=== PATIENT | male | born 1955 | race Caucasian/White ===

== ENCOUNTER 2020-10-12 14:31 | Observation (INO) ==
--- NOTE | 2020-10-12 15:05 | Emergency Department Note ---
History of Present Illness General Chief complaint: Chest Pain Stated complaint: chest pain, pulmonary hypotension Time Seen by Provider: 10/12/20 14:38 Source: patient Limitations: no limitations History of Present Illness Provider complaint: Chest discomfort Onset (ago): day(s) 2 Location: chest Radiation: non-radiation Severity: moderate Pain Consistency: + now resolved Maximum Pain Intensity: 6 Quality: + other (Pressure) Relieved By: + none Exacerbated By: + other (Exertion) Associated symptoms: + cough, + fever/chills (Chills no fever), + nausea/vomiting (Nausea no vomiting), + shortness of breath and + other (Fatigue) This is a 65-year-old male with a history of PE and pulmonary hypertension presenting with chest discomfort starting 2 days ago. The patient states that he had a cardiac catheterization years ago and was told that it was normal. He did develop clots in his lungs this spring after he was wearing knee brace that was too tight on him due to knee pain. He was on Eliquis but this was stopped about a month ago. He states that he has been having on and off chest pain since this past summer. He describes it as a pressure across the top of his chest. It is associated with shortness of breath. He states that he has seen his doctor for this who did not feel that this was cardiac in nature. He tended to get this chest discomfort after working [place]. He states he did not get it while he was exerting himself but the day after and his doctor felt that it was musculoskeletal. Several days ago when it was snowing very hard he shoveled a lot of snow. He states while he was shoveling he had no chest discomfort. It was only a day later when he started having pressure across his upper chest with some shortness of breath and nausea. He stated that it felt similar to the epic there are episodes of chest discomfort he has had since summer. The following day, however, the patient continued to have intermittent chest discomfort and stated that walking across 2 rooms would make him short of breath similar to when he had his pulmonary emboli. He denies any immobilization or leg swelling or pain. He does state that this morning he developed a cough with sputum production and has had increased fatigue and chills without fever. He denies any loss of taste or smell or diarrhea. He has no abdominal pain or vomiting. He denies any known exposure to COVID-19. He and his have been isolated on their property except to go to grocery stores and he states he wears a mask whenever he goes out. Home Medications Medication Instructions Recorded Confirmed Type lisinopril 10 mg PO DAILY 01/13/20 10/12/20 History pantoprazole 40 mg PO DAILY 01/13/20 10/12/20 History hydrochlorothiazide 25 mg PO Q3D 10/12/20 10/12/20 History meloxicam 15 mg PO DAILY PRN 10/12/20 10/12/20 History Allergies Allergy/AdvReac Type Severity Reaction Status Date / Time naproxen Allergy Severe Anaphylaxis Verified 10/12/20 19:23 Past Med/Surg History Medical History Barretts esophagus Bilateral pulmonary embolism completed 6 months Eliquis therapy Dyslipidemia History of DVT (deep vein thrombosis) HTN (hypertension) Left anterior fascicular block Pulmonary HTN RBBB Surgical History H/O inguinal hernia repair History of cardiac cath 08/2017 - normal coronaries Family History Mother COPD (chronic obstructive pulmonary disease) Social History Smoking Status: Former smoker Tobacco Type: Cigarettes Second Hand Exposure: No; Hx Alcohol Use: Yes Alcohol type: beer Alcohol Intake Frequency Comment: 2 beers/day Hx Substance Use: No Preferred Language: Yoruba [employer]ile [employer]ter Supervisor Required: No Beliefs That Will Affect Care: None Current Living Situation: Spouse Feels Safe at Home: Yes Assistive Devices: None Review of Systems See HPI for pertinent positives & negatives. and A total of 10 systems reviewed and were otherwise negative Physical Exam Vital Signs Vital Signs - 24 hr 10/12/20 14:33 10/12/20 15:27 10/12/20 15:30 Temperature 37.3 C Temperature Source Temporal Artery Scan Pulse Rate 69 61 63 Pulse Rate from SpO2 Sensor Respiratory Rate 18 16 Respiratory Effort / Characteristics Short of Breath Blood Pressure 169/99 H Blood Pressure Mean 122 Blood Pressure Position Sitting Pulse Oximetry 97 Oxygen Delivery Method Room Air Sepsis Recent Fever Within 48 Hours No Sepsis New/Unexplained Change in Mental Status N/A Sepsis Action Taken by Nursing No Action Required 10/12/20 16:00 10/12/20 16:30 10/12/20 17:00 Temperature Temperature Source Pulse Rate 63 63 59 L Pulse Rate from SpO2 Sensor Respiratory Rate 16 17 13 Respiratory Effort / Characteristics Blood Pressure Blood Pressure Mean Blood Pressure Position Pulse Oximetry Oxygen Delivery Method Sepsis Recent Fever Within 48 Hours Sepsis New/Unexplained Change in Mental Status Sepsis Action Taken by Nursing 10/12/20 17:17 10/12/20 17:18 10/12/20 17:30 Temperature Temperature Source Pulse Rate 65 62 62 Pulse Rate from SpO2 Sensor 66 63 62 Respiratory Rate 12 14 14 Respiratory Effort / Characteristics Blood Pressure 170/100 H 147/95 H Blood Pressure Mean 136 106 Blood Pressure Position Pulse Oximetry 96 95 95 Oxygen Delivery Method Sepsis Recent Fever Within 48 Hours Sepsis New/Unexplained Change in Mental Status Sepsis Action Taken by Nursing 10/12/20 17:31 10/12/20 18:00 10/12/20 18:01 Temperature Temperature Source Pulse Rate 59 L 61 61 Pulse Rate from SpO2 Sensor 61 61 61 Respiratory Rate 13 18 15 Respiratory Effort / Characteristics Blood Pressure 161/111 H Blood Pressure Mean 128 Blood Pressure Position Pulse Oximetry 95 96 97 Oxygen Delivery Method Sepsis Recent Fever Within 48 Hours Sepsis New/Unexplained Change in Mental Status Sepsis Action Taken by Nursing Constitutional: Vital signs reviewed. Eyes: Pupils are equal round reactive to light. Conjunctiva are noninjected. ENT: Pharynx is clear without erythema or exudate. Mucous membranes are moist. Neck supple without meningeal signs. Respiratory: Clear to auscultation bilaterally. Breath sounds are equal bilaterally. Cardiovascular: Regular rate and rhythm. No rubs or gallops. GI: Soft, nondistended and nontender. Bowel sounds are present. Musculoskeletal: No peripheral edema. No lower extremity tenderness. Integumentary: No cyanosis. or jaundice. Neurological: The patient is awake and alert. No focal deficits. Psychiatric: Normal affect. Not anxious appearing. Course Administered Medications Discontinued Medications Aspirin (Aspirin Chew 324 Mg) 324 mg PO NOW STA Stop: 10/12/20 17:59 Last Admin: 10/12/20 18:04 Dose: 324 mg Documented by: [id number] Ioversol (Optiray 320 125ml) 116 ml IV ONCE ONE Stop: 10/12/20 17:13 Last Admin: 10/12/20 17:12 Dose: 116 ml Documented by: [id number] Nitroglycerin (Nitroglycerin 2% Ointment 30gm Tube) 0.5 inch EXT NOW ONE Stop: 10/12/20 17:47 Last Admin: 10/12/20 18:04 Dose: 0.5 inch Documented by: [id number] Medical Decision Making Differential Diagnosis Pulmonary emboli, COVID-19, pneumonia, unstable angina, [place], GERD Medical Records Attestation: I reviewed the patient's medical records. I did perform a limited focused review of portions of the patient's old chart on the electronic medical record. The patient was seen here in May of this year for chest pressure. He was evaluated in the ED and discharged home for outpatient follow-up. Home Medications Current Medication List: was personally reviewed by me Laboratory Data Attestation: I reviewed the patient's lab results. Result diagrams: 10/12/20 15:10 10/12/20 15:10 Lab Results 10/12/20 10/12/20 10/12/20 Range/Units 15:10 15:10 15:10 WBC 7.56 (4.8-10.8) K/uL RBC 5.17 (4.7-6.1) M/uL Hgb 16.8 (14.0-18.0) g/dL Hct 48.9 (42-52) % MCV 94.6 (80-100) fL MCH 32.5 (25-34) pg MCHC 34.4 (32-36) g/dL RDW Std Deviation 46.1 (36.4-46.3) fL RDW Coeff of Dirk 13.3 (11.5-14.5) % Plt Count 167 (130-400) K/uL MPV 11.4 H (7.4-10.4) fL Immature Gran % (Auto) 0.5 % Neut % (Auto) 68.1 % Lymph % (Auto) 20.1 % [place] % (Auto) 9.7 % Eos % (Auto) 1.2 % Baso % (Auto) 0.4 % Neut # (Auto) 5.15 (1.4-6.5) K/uL Lymph # (Auto) 1.52 (1.2-3.4) K/uL [place] # (Auto) 0.73 H (0.11-0.59) K/uL Eos # (Auto) 0.09 (0-0.5) K/uL Baso # (Auto) 0.03 (0-0.2) K/uL Immature Gran # (Auto) 0.04 H (0.00-0.02) K/uL PT 11.1 (9.0-12.0) Seconds INR 1.1 (0.9-1.1) APTT 26.2 (21.0-31.0) Seconds PTT Ratio 0.9 D-Dimer 1030 H* (0-500) ug/L FEU Sodium 142 (136-145) mmol/L Potassium 4.3 (3.5-5.1) mmol/L Chloride 109 H (98-107) mmol/L Carbon Dioxide 25 (21-32) mmol/L Anion Gap 8.0 (3-11) BUN 16 (7-18) mg/dl Creatinine 1.02 (0.6-1.4) mg/dl Est Cr Clr Drug Dosing 74.1 ml/min Est GFR ( Amer) 87.7 Est GFR (Non-Af Amer) 75.7 BUN/Creatinine Ratio 15.5 (10-20) Glucose 84 (70-99) mg/dl Calcium 9.1 (8.5-10.1) mg/dl Total Bilirubin 0.4 (0.2-1) mg/dl AST 32 (15-37) U/L ALT 39 (12-78) U/L Alkaline Phosphatase 86 (45-117) U/L Troponin I < 0.015 (0-0.045) ng/ml Total Protein 7.5 (6.4-8.2) gm/dl Albumin 3.4 (3.4-5.0) gm/dl Globulin 4.1 H (2.5-4.0) gm/dl Albumin/Globulin Ratio 0.8 L (0.9-2) Lipase 140 (73-393) U/L COVID-19 Eval Order Influ A Molecular Assay (Negative) Influ B Molecular Assay (Negative) SARS-CoV-2, RNA, NAAT (NEGATIVE) 10/12/20 10/12/20 10/12/20 Range/Units 15:11 15:19 15:19 WBC (4.8-10.8) K/uL RBC (4.7-6.1) M/uL Hgb (14.0-18.0) g/dL Hct (42-52) % MCV (80-100) fL MCH (25-34) pg MCHC (32-36) g/dL RDW Std Deviation (36.4-46.3) fL RDW Coeff of Dirk (11.5-14.5) % Plt Count (130-400) K/uL MPV (7.4-10.4) fL Immature Gran % (Auto) % Neut % (Auto) % Lymph % (Auto) % [place] % (Auto) % Eos % (Auto) % Baso % (Auto) % Neut # (Auto) (1.4-6.5) K/uL Lymph # (Auto) (1.2-3.4) K/uL [place] # (Auto) (0.11-0.59) K/uL Eos # (Auto) (0-0.5) K/uL Baso # (Auto) (0-0.2) K/uL Immature Gran # (Auto) (0.00-0.02) K/uL PT (9.0-12.0) Seconds INR (0.9-1.1) APTT (21.0-31.0) Seconds PTT Ratio D-Dimer (0-500) ug/L FEU Sodium (136-145) mmol/L Potassium (3.5-5.1) mmol/L Chloride (98-107) mmol/L Carbon Dioxide (21-32) mmol/L Anion Gap (3-11) BUN (7-18) mg/dl Creatinine (0.6-1.4) mg/dl Est Cr Clr Drug Dosing ml/min Est GFR ( Amer) Est GFR (Non-Af Amer) BUN/Creatinine Ratio (10-20) Glucose (70-99) mg/dl Calcium (8.5-10.1) mg/dl Total Bilirubin (0.2-1) mg/dl AST (15-37) U/L ALT (12-78) U/L Alkaline Phosphatase (45-117) U/L Troponin I (0-0.045) ng/ml Total Protein (6.4-8.2) gm/dl Albumin (3.4-5.0) gm/dl Globulin (2.5-4.0) gm/dl Albumin/Globulin Ratio (0.9-2) Lipase (73-393) U/L COVID-19 Eval Order Covid19 [facility] Influ A Molecular Assay Negative (Negative) Influ B Molecular Assay Negative (Negative) SARS-CoV-2, RNA, NAAT NEGATIVE (NEGATIVE) Imaging Data Radiologist's Impression: CT angio chest PE protocol CT DOSE: 801.06 mGy.cm HISTORY: 65 years-old Male with cp eval for PE. Acute chest pain with shortness of breath TECHNIQUE: Multiple CTA images of the chest were obtained after the intravenous administration of 116 ml Optiray 320. Coronal and sagittal MIPS were obtained from the axial data set and were submitted for review. All measurements were obtained according to NASCET criteria. A dose lowering technique was utilized adhering to the principles of ALARA. COMPARISON: CTA of the chest 06/15/2020, 01/13/2020 FINDINGS: CTA: The heart is upper limits of normal in size. No pericardial effusion. Minimal coronary artery calcifications. There is no thoracic aortic aneurysm or dissection. Patency of the imaged great vessels. The pulmonary artery is opacified to the level of the proximal segmental branches. There are a few subtle linear nonobstructing filling defects within segmental branches of the bilateral globes which has decreased from comparison suggestive of fibrin stranding related to remote pulmonary emboli. No acute occlusive pulmonary emboli identified. CT CHEST: Unremarkable thyroid. There is no adenopathy. Trace right pleural effusion. No pneumothorax. Unchanged 8 mm groundglass nodule of the inferior segment lingula. No overt pulmonary edema or airspace consolidation typical for pneumonia. There is mild bibasilar groundglass densities with minimal linear consolidation of the basal right lower lobe suggestive of probable atelectasis. The central airways are patent. No acute process of the imaged upper abdomen. There is a small hiatal hernia. Hepatic steatosis. Hypodensities of the left hepatic lobe measuring up to 1.6 cm suggestive of hepatic cysts are redemonstrated. Unremarkable soft tissues. Bones appear intact. IMPRESSION: 1. Linear nonocclusive filling defects within subsegmental pulmonary arterial branches of the lower lobes compatible with fibrin stranding from remote pulmonary emboli, decreased from comparison. No acute pulmonary emboli are identified. 2. Trace right pleural effusion with mild right greater than left bibasilar densities favoring atelectasis. 3. No adenopathy. ACT 112: Negative or not required by law. The above report was generated using voice recognition software. It may contain grammatical, syntax or spelling errors. Electronically signed by: Jonathan Quinones M.D. 10/12/2020 5:34 PM Dictated: 10/12/201723 Transcribed: 10/12/201723 ECG Data Attestation: I personally reviewed and interpreted this ECG as follows: Indication: + chest pain Rate (beats per minute): 59 Rhythm: + sinus bradycardia ECG Intervals/blocks: + Incomplete right bundle branch block ECG [place]: + Left axis deviation ECG ST segments: no ST elevation ECG Findings: no PVCs Comparison ECG Date: from (June 15, 2020) Change: no significant change Additional Comments: Repeat twelve-lead EKG per my interpretation shows normal sinus rhythm at a rate of 61 bpm. There is continued left axis deviation and an incomplete right bundle branch block. No acute ST elevations or significant change from prior EKG. MDM Narrative I did evaluate the patient as noted above. IV access was established. I did place an order for continuous cardiac monitoring. The monitor showed normal sinus rhythm at a rate of 62 bpm. I did order and personally review the patient's 12-lead EKG as described above. He has an incomplete right bundle branch block. I did order and review the patient's blood work as noted in the electronic medical record. CBC and electrolytes are unremarkable. Troponin is negative. D-dimer is elevated. After discussion with the patient, I did order a CT angiogram of the chest. I did review the images myself as well as the radiology report as described above. He does have residual nonocclusive filling defects from prior PE but no acute pulmonary emboli. I did discuss the test results with the patient. He states that he has developed some chest pressure again while in the emergency department. He also states he has had some burning in his chest as well and has a hiatal hernia. He did state that he took some Tums earlier which did not help with that chest pain. I did treat the patient with nitroglycerin paste. He was given aspirin which he states he has taken in the past and is not allergic to. I did repeat a twelve-lead EKG which per my interpretation shows no acute ischemic changes. I did recommend hospitalization for further care and evaluation. I did discuss case with the hospitalist and pillowcase folder. Impression & Plan Chest pain Discharge Plan Visit Data Chief Complaint: Chest Pain Stated Complaint: chest pain, pulmonary hypotension ED Provider: Adi Palencia Discharge Problem: Chest pain Patient Disposition: Admitted As Inpatient Discharge Instructions Interventions: ED Discharge Assessment Last Done: 10/12/20 20:04
[2020-10-12 15:21] LABS: Basophils # (auto) 0.03 K/uL (0-0.2); Basophils % (auto) 0.4 %; Eosinophils # (auto) 0.09 K/uL (0-0.5); Eosinophils % (auto) 1.2 %; Hematocrit (blood only) 48.9 % (42-52); Hemoglobin 16.8 g/dL (14.0-18.0); Immature Granulocytes # (auto) 0.04 K/uL (0.00-0.02); Immature Granulocytes % (auto) 0.5 %; Lymphocytes # (auto) 1.52 K/uL (1.2-3.4); Lymphocytes % (auto) 20.1 %; Mean Corpuscular Hemoglobin 32.5 pg (25-34); Mean Corpuscular Hgb Conc 34.4 g/dL (32-36); Mean Corpuscular Volume 94.6 fL (80-100); Mean Platelet Volume 11.4 fL (7.4-10.4); Monocytes # (auto) 0.73 K/uL (0.11-0.59); Monocytes % (auto) 9.7 %; Neutrophils # (auto) 5.15 K/uL (1.4-6.5); Neutrophils % (auto) 68.1 %; Platelet Count 167 K/uL (130-400); RDW Coefficient of Variation 13.3 % (11.5-14.5); RDW Standard Deviation 46.1 fL (36.4-46.3); Red Blood Count 5.17 M/uL (4.7-6.1); White Blood Count 7.56 K/uL (4.8-10.8)
[2020-10-12 15:42] LABS: Alanine Aminotransferase 39 U/L (12-78); Albumin Level 3.4 gm/dl (3.4-5.0); Aspartate Aminotransferase 32 U/L (15-37); BUN Creatinine Ratio 15.5 (10-20); Blood Urea Nitrogen 16 mg/dl (7-18); Calcium 9.1 mg/dl (8.5-10.1); Carbon Dioxide 25 mmol/L (21-32); Chloride 109 mmol/L (98-107); Creatinine Clr Calc Pharmacy 74.1 ml/min; Est GFR (African American) 87.7; Est GFR (Non-African American) 75.7; Glucose 84 mg/dl (70-99); Lipase 140 U/L (73-393); Potassium 4.3 mmol/L (3.5-5.1); Sodium 142 mmol/L (136-145)
[2020-10-12 15:46] LABS: Albumin Globulin Ratio 0.8 (0.9-2); Alkaline Phosphatase 86 U/L (45-117); Bilirubin,Total 0.4 mg/dl (0.2-1); Globulin 4.1 gm/dl (2.5-4.0); Total Protein 7.5 gm/dl (6.4-8.2); Troponin I < 0.015 ng/ml (0-0.045)
[2020-10-12 15:51] LABS: Influenza A virus by PCR Negative (Negative); Influenza B virus by PCR Negative (Negative)
[2020-10-12 16:08] LABS: INR 1.1 (0.9-1.1); Partial Thromboplastin Ratio 0.9; Partial Thromboplastin Time 26.2 Seconds (21.0-31.0); Prothrombin Time 11.1 Seconds (9.0-12.0)
[2020-10-12 16:15] LABS: D Dimer 1030 ug/L FEU (0-500)
[2020-10-12] MEDS ORDERED: OPTIRAY 320 125ml IV ONE (17:12)
--- NOTE | 2020-10-12 17:24 | Electrocardiogram Report ---
Test Reason : Blood Pressure : / mmHG Vent. Rate : 059 BPM Atrial Rate : 059 BPM P-R Int : 176 ms QRS Dur : 112 ms QT Int : 424 ms P-R-T Axes : 059 -43 -07 degrees QTc Int : 419 ms Poor data quality, interpretation may be adversely affected Sinus bradycardia Left anterior fascicular block Pulmonary disease pattern Incomplete right bundle branch block Abnormal ECG When compared with ECG of 15-JUN-2020 13:17, Incomplete right bundle branch block has replaced Non-specific intra-ventricular conduction block Confirmed by Godwin Infante ([id number]) on 10/12/2020 5:23:36 PM Referred By: Confirmed By:Godwin Infante
--- NOTE | 2020-10-12 17:35 | CT Scan Report ---
CT angio chest PE protocol CT DOSE: 801.06 mGy.cm HISTORY: 65 years-old Male with cp eval for PE. Acute chest pain with shortness of breath TECHNIQUE: Multiple CTA images of the chest were obtained after the intravenous administration of 116 ml Optiray 320. Coronal and sagittal MIPS were obtained from the axial data set and were submitted for review. All measurements were obtained according to NASCET criteria. A dose lowering technique w as utilized adhering to the principles of ALARA. COMPARISON: CTA of the chest 06/15/2020, 01/13/2020 FINDINGS: CTA: The heart is upper limits of normal in size. No pericardial effusion. Minimal coronary artery calcifi cations. There is no thoracic aortic aneurysm or dissection. Patency of the imaged great vessels. The pulmonary artery is opacified to the level of the proximal segmental branches. There are a few subtl e linear nonobstructing filling defects within segmental branches of the bilateral globes which has d ecreased from comparison suggestive of fibrin stranding related to remote pulmonary emboli. No acute occlusive pulmonary emboli identified. CT CHEST: Unremarkable thyroid. There is no adenopathy. Trace right pleural effusion. No pneumothorax. Unchange d 8 mm groundglass nodule of the inferior segment lingula. No overt pulmonary edema or airspace conso lidation typical for pneumonia. There is mild bibasilar groundglass densities with minimal linear con solidation of the basal right lower lobe suggestive of probable atelectasis. The central airways are patent. No acute process of the imaged upper abdomen. There is a small hiatal hernia. Hepatic steatosis. Hypo densities of the left hepatic lobe measuring up to 1.6 cm suggestive of hepatic cysts are redemonstra saul. Unremarkable soft tissues. Bones appear intact. IMPRESSION: 1. Linear nonocclusive filling defects within subsegmental pulmonary arterial branches of the lower l obes compatible with fibrin stranding from remote pulmonary emboli, decreased from comparison. No acu te pulmonary emboli are identified. 2. Trace right pleural effusion with mild right greater than left bibasilar densities favoring atelec tasis. 3. No adenopathy. ACT 112: Negative or not required by law. The above report was generated using voice recognition software. It may contain grammatical, syntax o r spelling errors. Electronically signed by: Jonathan Quinones M.D. 10/12/2020 5:34 PM
[2020-10-12] MEDS ORDERED: NITROGLYCERIN 2% OINTMENT 30GM TUBE EXT ONE (17:46)
[2020-10-12] MEDS ORDERED: ASPIRIN CHEW 324 MG PO STA (17:58)
--- NOTE | 2020-10-12 20:22 | History & Physical Report ---
Date of Service October 12, 2020 Assessment & Plan (1) Chest pain: (2) Pulmonary HTN: -Admit to telemetry -Patient presenting from home with reports of worsening chest pain and nausea -History of bilateral pulmonary embolism and DVT 12/2019 -completed 6 months Eliquis therapy -CTA chest negative for pulmonary embolism -Initial troponin negative, EKG without acute ST changes -BP elevated -symptoms may be due to hypertensive urgency -Continue to cycle cardiac enzymes -Stress echo 06/2020 -negative for ischemia, moderate pulmonary hypertension; ? Patient may benefit from right-sided heart cath -Cardiology consult, input appreciated (3) Hypertensive urgency: -BP 170/100 -Increase lisinopril from 10 mg to 20 mg daily, give 10 mg now -Change HCTZ from 25 mg every third day to 12.5 mg daily (4) Barretts esophagus: -Continue PPI (5) DVT prophylaxis: -SQ Lovenox History of Present Illness Chief Complaint: Chest pain Primary Care Provider: Godwin Salas MD 65-year-old male with PMH HTN, pulmonary hypertension, history of DVT and pulmonary embolism (completed 6 months of Eliquis therapy), and other problems listed below who presents the ED for evaluation of chest pain. Patient diagnosed with bilateral pulmonary embolism and DVT 12/2019, completed 6 months of Eliquis therapy. Patient reports that since that time, he has had intermittent episodes of chest pain and exertional shortness of breath. Yesterday, patient reports he felt a burning in his chest and also had a productive cough. Symptoms lasted throughout most of the day. This morning, patient reports he felt well whenever he woke up. He had gone outside to do some yard work and reports he developed a midsternal chest pressure. Rates the pain number 8 out of 10 at its worst. He also had associated nausea. Reports this pain is much worse than what he has been experiencing over the past several months. Symptoms resolved once he went inside to rest however reports they quickly returned with minimal exertion. Patient denies lightheadedness, dizziness, diaphoresis, syncopal events. No other recent illnesses, fevers, chills. Denies lower extremity edema and orthopnea. No abdominal pain, vomiting, diarrhea. Denies urinary symptoms. In the ED, CTA chest is negative for pulmonary embolism. Initial troponin is negative and EKG does not show any acute ST changes. BP elevated 170/100. Patient was given full dose aspirin and half inch nitroglycerin paste. Patient reports symptoms continue to come and go however he is feeling well at this time. Allergies Allergy/AdvReac Type Severity Reaction Status Date / Time naproxen Allergy Severe Anaphylaxis Verified 10/12/20 19:23 Home Medications Medication Instructions Recorded Confirmed Type lisinopril 10 mg PO DAILY 01/13/20 10/12/20 History pantoprazole 40 mg PO DAILY 01/13/20 10/12/20 History hydrochlorothiazide 25 mg PO Q3D 10/12/20 10/12/20 History meloxicam 15 mg PO DAILY PRN 10/12/20 10/12/20 History Past Med/Surg History Medical History Barretts esophagus Bilateral pulmonary embolism completed 6 months Eliquis therapy Dyslipidemia History of DVT (deep vein thrombosis) HTN (hypertension) Left anterior fascicular block Pulmonary HTN RBBB Surgical History H/O inguinal hernia repair History of cardiac cath 08/2017 - normal coronaries Family History Mother COPD (chronic obstructive pulmonary disease) Social History Smoking Status: Former smoker Tobacco Type: Cigarettes Second Hand Exposure: No; Hx Alcohol Use: Yes Alcohol type: beer Alcohol Intake Frequency Comment: 2 beers/day Hx Substance Use: No Preferred Language: Armenian Director Toxicology Required: No Beliefs That Will Affect Care: None Current Living Situation: Spouse Feels Safe at Home: Yes Assistive Devices: None Review of Systems Review of Systems: ROS per HPI, all other systems reviewed and negative Physical Exam Constitutional: WD/WN, vitals as above Eyes: PERRL, conjunctivae normal, anicteric sclerae ENMT: external ear and nose normal, oropharynx normal Respiratory: normal respiratory effort, lungs clear to auscultation Cardiovascular: Rate/Rhythm: regular rate and regular rhythm Vessels: normal peripheral pulses Extremities: no edema Gastrointestinal (Abdomen): normal bowel sounds, soft, nontender, no hepatosplenomegaly Musculoskeletal: no cyanosis or clubbing, extremities motor strength 5/5 Skin: no rashes, warm and dry Neurologic: PERRL, EOMI, accommodation nl, no face palsy, no dysarthria Psychiatric: A+Ox3, euthymic affect Results & Data Results & Data ([facility]) Vital Signs (Past 12 Hours) Vital Signs Temp Pulse Resp BP Pulse Ox 10/12/20 20:01 66 16 93 10/12/20 20:00 61 11 L 147/93 H 94 10/12/20 19:31 61 17 137/88 95 10/12/20 19:30 62 20 90 10/12/20 19:01 68 20 96 10/12/20 19:00 63 14 178/106 H 96 10/12/20 18:48 61 17 165/99 H 95 10/12/20 18:31 62 11 L 95 10/12/20 18:30 62 10 L 170/98 H 96 10/12/20 18:01 61 15 97 10/12/20 18:00 61 18 161/111 H 96 10/12/20 17:31 59 L 13 95 10/12/20 17:30 62 14 147/95 H 95 10/12/20 17:18 62 14 95 10/12/20 17:17 65 12 170/100 H 96 10/12/20 17:00 59 L 13 10/12/20 16:30 63 17 10/12/20 16:00 63 16 10/12/20 15:30 63 16 10/12/20 15:27 61 10/12/20 14:33 37.3 C 69 18 169/99 H 97 Laboratory Results Short CBC 10/12/20 Range/Units 15:10 WBC 7.56 (4.8-10.8) K/uL Hgb 16.8 (14.0-18.0) g/dL Hct 48.9 (42-52) % Plt Count 167 (130-400) K/uL BMP 10/12/20 15:10 Sodium 142 Potassium 4.3 Chloride 109 H Carbon Dioxide 25 BUN 16 Creatinine 1.02 Glucose 84 Calcium 9.1 Cardiac Enzymes 10/12/20 Range/Units 15:10 Troponin I < 0.015 (0-0.045) ng/ml Liver Function 10/12/20 Range/Units 15:10 Total Bilirubin 0.4 (0.2-1) mg/dl AST 32 (15-37) U/L ALT 39 (12-78) U/L Alkaline Phosphatase 86 (45-117) U/L Albumin 3.4 (3.4-5.0) gm/dl Diagnostic Findings CTA CHEST IMPRESSION: 1. Linear nonocclusive filling defects within subsegmental pulmonary arterial branches of the lower lobes compatible with fibrin stranding from remote pulmo nary emboli, decreased from comparison. No acute pulmonary emboli are identified. 2. Trace right pleural effusion with mild right greater than left bibasilar densities favoring atelectasis. 3. No adenopathy. Code Status & VTE Plan VTE Prophylaxis Plan VTE Prophylaxis will be ordered: Yes Supervising Physician Co-Signing Physician Notes Attending addendum The patient was seen and examined in the emergency room He has history of pulmonary hypertension likely secondary to pulmonary embolism in the past He has had some physical activities recently and also because complaining of cough and presented to ER with chest pain He was noted to have hypertensive urgency in the emergency room During my examination he was feeling a lot better On examination Lying in bed comfortably Hemodynamically stable during my examination Chest-clear to auscultate bilaterally Heart-S1-S2, regular Abdomen-benign, nontender, no organomegaly, bowel sounds present Extremities-negative for any edema Admission labs, EKG and imaging studies reviewed Has hypertensive urgency without any evidence of recurrent pulmonary embolism. Has history of pulmonary hypertension Cardiology consulted Agree with assessment and plan as outlined above by Caprice Meyer
[2020-10-12] MEDS ORDERED: NITROGLYCERIN SL 0.4 MG/TAB TAB SL PRN (20:41)
[2020-10-12] MEDS: ACETAMINOPHEN 325 MG TAB PO PRN (20:56)
[2020-10-12] MEDS ORDERED: lisinopril 10 MG TAB PO ONE (21:00)
[2020-10-12] MEDS ORDERED: ENOXAPARIN INJ 40 MG/0.4 ML SYR SQ SCH (21:00)
[2020-10-13] MEDS: ACETAMINOPHEN 325 MG TAB PO PRN ×2 (02:43→08:34)
[2020-10-13 02:54] LABS: Hematocrit (blood only) 46.7 % (42-52); Hemoglobin 15.8 g/dL (14.0-18.0); Mean Corpuscular Hemoglobin 31.8 pg (25-34); Mean Corpuscular Hgb Conc 33.8 g/dL (32-36); Mean Platelet Volume 11.3 fL (7.4-10.4); Platelet Count 171 K/uL (130-400); RDW Coefficient of Variation 13.3 % (11.5-14.5); RDW Standard Deviation 45.9 fL (36.4-46.3); Red Blood Count 4.97 M/uL (4.7-6.1); White Blood Count 7.43 K/uL (4.8-10.8)
[2020-10-13 03:11] LABS: BUN Creatinine Ratio 14.3 (10-20); Blood Urea Nitrogen 14 mg/dl (7-18); Calcium 8.5 mg/dl (8.5-10.1); Carbon Dioxide 27 mmol/L (21-32); Chloride 107 mmol/L (98-107); Creatinine Clr Calc Pharmacy 87.3 ml/min; Est GFR (African American) 93.2; Est GFR (Non-African American) 80.5; Glucose 91 mg/dl (70-99); Potassium 3.8 mmol/L (3.5-5.1); Sodium 138 mmol/L (136-145)
[2020-10-13 03:16] LABS: Troponin I < 0.015 ng/ml (0-0.045)
--- NOTE | 2020-10-13 08:11 | Electrocardiogram Report ---
Test Reason : Blood Pressure : / mmHG Vent. Rate : 061 BPM Atrial Rate : 061 BPM P-R Int : 160 ms QRS Dur : 114 ms QT Int : 428 ms P-R-T Axes : 025 -41 -09 degrees QTc Int : 430 ms Normal sinus rhythm Left axis deviation Pulmonary disease pattern Incomplete right bundle branch block Abnormal ECG When compared with ECG of 12-OCT-2020 14:52, No significant change Confirmed by Godwin Infante ([id number]) on 10/13/2020 8:11:01 AM Referred By: REFERRED SELF Confirmed By:Godwin Infante
[2020-10-13] MEDS ORDERED: lisinopril 20 MG TAB PO SCH (09:00)
[2020-10-13] MEDS ORDERED: PANTOprazole 40 MG TAB PO SCH (09:00)
[2020-10-13] MEDS ORDERED: hydroCHLOROthiazide 25 MG TAB PO SCH (09:00)
--- NOTE | 2020-10-13 09:35 | Electrocardiogram Report ---
Test Reason : Blood Pressure : / mmHG Vent. Rate : 056 BPM Atrial Rate : 056 BPM P-R Int : 174 ms QRS Dur : 126 ms QT Int : 448 ms P-R-T Axes : 059 -26 009 degrees QTc Int : 432 ms Sinus bradycardia Left axis deviation Incomplete right bundle branch block Abnormal ECG When compared with ECG of 12-OCT-2020 17:58, No significant change Confirmed by Godwin Infante ([id number]) on 10/13/2020 9:35:10 AM Referred By: REFERRED SELF Confirmed By:Godwin Infante
[2020-10-13 12:58] VITALS: TEMP 97.7; O2SAT 98
--- NOTE | 2020-10-13 13:19 | Cardiology Consultation ---
Date of Consultation October 13, 2020 Assessment & Plan (1) Chest pain: (2) Pulmonary HTN: (3) HTN (hypertension): Patient's blood pressure was elevated on presentation, and his lisinopril dose was increased to 20 mg, with interval improvement. Serial EKG tracings reveal chronic incomplete right bundle branch block, left anterior fascicular block pattern without ischemic changes, unchanged compared to previous. Troponin I negative x3. Patient symptoms have clinically improved. D-dimer elevated, 1030 ug/L on presentation. CT of the chest revealed no acute pulmonary emboli, but linear nonocclusive filling defects were noted in the subsegmental pulmonary arterial branches per the radiology report consistent with stranding from remote pulmonary emboli. The patient presented with a submassive pulmonary embolism in December,, no hemodynamic compromise, but RV strain noted on echocardiogram with new pulmonary hypertension. He has been noted to have residual right ventricular systolic dysfunction on echocardiogram performed as an outpatient in June 2020, and again today. The estimated pulmonary systolic pressure on the resting echocardiogram study performed today is 65 mmHg, with ongoing moderate right ventricular chamber size and systolic dysfunction which is improved compared to the initial echo in December, but with ongoing abnormalities as noted. Patient had discontinued Eliquis in July,, per his preference, completing 6 months of therapy. Hypercoagulable work-up had been negative. I am concerned that his residual right ventricular chamber dysfunction and pulmonary hypertension is consistent with chronic thromboembolic pulmonary hypertension. I believe the CT findings are compatible with this. Unable to perform ventilation/perfusion scan as the ventilation portion cannot be performed due to COVID-19 restrictions. Left heart catheterization revealed angiographically normal coronary arteries in [place] in 2016 which is reassuring in terms of this being due to coronary heart disease, as is his serial normal troponin levels.. At present I recommend resuming Eliquis 5 mg now, and 5 mg twice daily starting tomorrow morning. Patient to be scheduled for outpatient cardiac catheterization to include right heart catheterization, left heart catheterization with coronary angiography, to be performed on , 10/20/2020, with Dr. Rice. Patient has already had COVID-19 test on 10/12/2020. Patient is to come [facility] for repeat Covid test on 10/17 or 10/18, with basic metabolic panel to be drawn at the same time. Patient is to take his last dose of Eliquis in the evening on 10/18/2020. No Eliquis 10/19/2020. No Eliquis the day of the procedure 10/20/2020. -He reports that he has a 90-day supply of Eliquis at home having previously filled a prescription. Min Loera DO History of Present Illness Attending Physician: Ceci Arevalo MD History of Present Illness Gonzalez Freire is a [id number]-year-old seen in cardiology consultation per the request of KENN Mendez of the [facility] service for the evaluation of chest discomfort and shortness of breath. The patient describes recent sensation of chest burning, onset 2 days ago, while having a cup of coffee. He took some Tums, but this really did not seem to help things. Yesterday he had repeat burning with physical exertion and also had a mild degree of pressure and nauseousness. This seemed to be worse when he did some walking. He therefore presented to the emergency room. Presenting blood pressure was elevated at 169/99 and he has had relatively elevated blood pressures at home recently including a recent reading of 155/92 per his description. Patient has a history of past chest discomfort for which he underwent coronary angiography performed at [facility] in 2017. I do not have a copy of the procedure report, but the patient describes that he was told his heart arteries were "normal". In December,, he developed exertional chest tightness and shortness of breath and a CT angiogram performed as an outpatient that time revealed bilateral pulmonary emboli with CT findings suggestive of right ventricular strain and dilatation of the main pulmonary artery to 3.3 cm consistent with pulmonary hypertension. The patient was admitted for further treatment, and an echocardiogram performed during admission on 01/14/2020 revealed findings consistent with right ventricular strain, and elevated estimated pulmonary artery pressures of 55 mmHg. He was also found to have a significant right lower extremity DVT. Hypercoagulable work-up was subsequently negative, it was felt that the DVT/pulmonary embolism event was provoked by him wearing a constrictive neoprene knee brace on his right leg. The patient had recurrent symptoms of vague chest discomfort, prompting an exercise stress echocardiogram performed 06/22/2020 that was negative for ischemia, however the patient was found to have residual right ventricular chamber dilatation and RV dysfunction, and resting pulmonary systolic pressure 55 mmHg, that increased to greater than 60 mmHg post exercise. Allergies Allergy/AdvReac Type Severity Reaction Status Date / Time naproxen Allergy Severe Anaphylaxis Verified 10/12/20 19:23 Home Medications Medication Instructions Recorded Confirmed Type lisinopril 10 mg PO DAILY 01/13/20 10/12/20 History pantoprazole 40 mg PO DAILY 01/13/20 10/12/20 History hydrochlorothiazide 25 mg PO Q3D 10/12/20 10/12/20 History meloxicam 15 mg PO DAILY PRN 10/12/20 10/12/20 History Patient History Medical History Barretts esophagus Bilateral pulmonary embolism completed 6 months Eliquis therapy Dyslipidemia History of DVT (deep vein thrombosis) HTN (hypertension) Left anterior fascicular block Pulmonary HTN RBBB Surgical History H/O inguinal hernia repair History of cardiac cath 08/2017 - normal coronaries Family History Mother COPD (chronic obstructive pulmonary disease) Social History Smoking Status: Former smoker Tobacco Type: Cigarettes Smoking End Date: ; Second Hand Exposure: No; Tobacco Cessation Education Requested by Patient: No Hx Alcohol Use: Yes Alcohol type: beer Alcohol Intake Frequency Comment: 2 beers/day Hx Substance Use: No Preferred Language: Hungarian Communication Ability: Effective Rouge Sifter Required: No Beliefs That Will Affect Care: None Current Living Situation: Spouse Other Information That Helps Us Care for You: No Feels Safe at Home: Yes Safety Concerns: Feels Safe At This Time Assistive Devices: None Assistive Devices Comment: Reading Glasses here Review of Systems Review of Systems: All systems reviewed & are unremarkable except as noted in HPI & below Physical Exam Physical Exam: Temp Pulse Resp BP Pulse Ox 36.5 C 70 16 119/59 L 98 10/13/20 12:57 10/13/20 12:57 10/13/20 12:57 10/13/20 12:57 10/13/20 12:57 Constitutional: WD/WN, vitals as above Respiratory: normal respiratory effort, lungs clear to auscultation Cardiovascular: RRR, no murmur, no edema Gastrointestinal (Abdomen): normal bowel sounds, soft, nontender, no hepatosplenomegaly Neurologic: PERRL, EOMI, accommodation nl, no face palsy, no dysarthria Results & Data ([facility]) Vital Signs (Past 12 Hours) Vital Signs Temp Pulse Pulse Resp BP Pulse Ox 10/13/20 12:57 36.5 C 70 16 119/59 L 98 10/13/20 08:22 37.0 C 60 18 124/76 95 10/13/20 07:19 57 L 10/13/20 03:12 36.4 C L 59 L 18 119/73 93 Laboratory Results Cardiac Enzymes 10/12/20 10/12/20 10/13/20 Range/Units 15:10 21:08 02:38 AST 32 (15-37) U/L Troponin I < 0.015 < 0.015 < 0.015 (0-0.045) ng/ml Coagulation 10/12/20 Range/Units 15:10 PT 11.1 (9.0-12.0) Seconds APTT 26.2 (21.0-31.0) Seconds CBC 10/12/20 10/13/20 Range/Units 15:10 02:38 WBC 7.56 7.43 (4.8-10.8) K/uL RBC 5.17 4.97 (4.7-6.1) M/uL Hgb 16.8 15.8 (14.0-18.0) g/dL Hct 48.9 46.7 (42-52) % Plt Count 167 171 (130-400) K/uL Neut # (Auto) 5.15 (1.4-6.5) K/uL Lymph # (Auto) 1.52 (1.2-3.4) K/uL [place] # (Auto) 0.73 H (0.11-0.59) K/uL Eos # (Auto) 0.09 (0-0.5) K/uL Baso # (Auto) 0.03 (0-0.2) K/uL Comprehensive Metabolic Panel 10/12/20 10/13/20 Range/Units 15:10 02:38 Sodium 142 138 (136-145) mmol/L Potassium 4.3 3.8 (3.5-5.1) mmol/L Chloride 109 H 107 (98-107) mmol/L Carbon Dioxide 25 27 (21-32) mmol/L BUN 16 14 (7-18) mg/dl Creatinine 1.02 0.97 (0.6-1.4) mg/dl Glucose 84 91 (70-99) mg/dl Calcium 9.1 8.5 (8.5-10.1) mg/dl AST 32 (15-37) U/L ALT 39 (12-78) U/L Alkaline Phosphatase 86 (45-117) U/L Total Protein 7.5 (6.4-8.2) gm/dl Albumin 3.4 (3.4-5.0) gm/dl Intake and Output 10/12/20 10/13/20 10/13/20 22:59 06:59 14:59 Output Total 350 / 350 400 / 400 Balance -350 / -350 -400 / -400 Output: Urine 350 / 350 400 / 400 Other: Other Intake Source NPO NPO Weight 102.8 kg 102 kg Weight Measurement Method Built in Bedscale Standing Scale Diagnostic Findings EKG performed 10/12/2020 at 1452 and reviewed independently revealed sinus bradycardia 59 bpm with left anterior fascicular block pattern, incomplete right bundle branch block, no significant repolarization changes. (1) Chest pain Chest pain type: unspecified Qualified Code(s): R07.9 - Chest pain, unspecified
[2020-10-13] MEDS ORDERED: APIXABAN 5 MG TABLET PO ONE (13:45)
[2020-10-13 15:33] VITALS: BP 136/88
--- NOTE | 2020-10-13 15:44 | Discharge Summary ---
Date of Service October 13, 2020 Admission HPI Per Admitting Provider 65-year-old male with PMH HTN, pulmonary hypertension, history of DVT and pulmonary embolism (completed 6 months of Eliquis therapy), and other problems listed below who presents the ED for evaluation of chest pain. Patient diagnosed with bilateral pulmonary embolism and DVT 12/2019, completed 6 months of Eliquis therapy. Patient reports that since that time, he has had intermittent episodes of chest pain and exertional shortness of breath. Yesterday, patient reports he felt a burning in his chest and also had a productive cough. Symptoms lasted throughout most of the day. This morning, patient reports he felt well whenever he woke up. He had gone outside to do some yard work and reports he developed a midsternal chest pressure. Rates the pain number 8 out of 10 at its worst. He also had associated nausea. Reports this pain is much worse than what he has been experiencing over the past several months. Symptoms resolved once he went inside to rest however reports they quickly returned with minimal exertion. Patient denies lightheadedness, dizziness, diaphoresis, syncopal events. No other recent illnesses, fevers, chills. Denies lower extremity edema and orthopnea. No abdominal pain, vo miting, diarrhea. Denies urinary symptoms. In the ED, CTA chest is negative for pulmonary embolism. Initial troponin is negative and EKG does not show any acute ST changes. BP elevated 170/100. Patient was given full dose aspirin and half inch nitroglycerin paste. Patient reports symptoms continue to come and go however he is feeling well at this time. Principal Diagnosis CHEST PAIN Chronic pulmonary hypertension secondary to possible chronic PE. High blood pressure Discharge Exam Constitutional WD/WN, vitals as above Eyes PERRL, conjunctivae normal, anicteric sclerae ENMT external ear and nose normal, oropharynx normal Neck trachea midline, no thyromegaly Respiratory normal respiratory effort, lungs clear to auscultation Cardiovascular RRR, no murmur, no edema Gastrointestinal (Abdomen) normal bowel sounds, soft, nontender, no hepatosplenomegaly Musculoskeletal no cyanosis or clubbing, extremities motor strength 5/5 Skin no rashes, warm and dry Neurologic PERRL, EOMI, accommodation nl, no face palsy, no dysarthria Psychiatric A+Ox3, euthymic affect Discharge Data Allergies Allergy/AdvReac Type Severity Reaction Status Date / Time naproxen Allergy Severe Anaphylaxis Verified 10/12/20 19:23 Consultations 10/12/20 18:01 ED Decision to Admit Stat 10/12/20 20:41 Consult Cardiology Routine Ordered Studies 10/12/20 16:14 CT angio chest PE protocol Stat Hospital Course (1) Chest pain: (2) Pulmonary HTN: -Patient presented from home with reports of worsening chest pain and nausea D-dimer elevated 1030 Chest pain shortness of breath discomfort completely resolved -History of bilateral pulmonary embolism and DVT 12/2019 -completed 6 months Eliquis therapy on July 2020 CTA of the chest revealed no acute pulmonary emboli, but linear nonocclusive filling defects were noted in the subsegmental pulmonary arterial branches per the radiology report consistent with stranding from remote pulmonary emboli. -Echo shows: Mild concentric left ventricular hypertrophy, ejection fraction 60 to 65%, right ventricle is mild to moderately dilated, right ventricular systolic function is moderately reduced. 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 Eliquis Scheduled for outpatient cardiac cath including right heart cath on , 10/20/[address] Tarun Rice Preop Covid 19 testing, lab work, and instruction to hold Eliquis included in the discharge summary as per Dr. Loera (3) Hypertensive urgency: Scented with blood pressure-BP 170/100 -Increased lisinopril from 10 mg to 20 mg daily -Changed HCTZ from 25 mg every third day to 12.5 mg daily -BP remained stable patient will be discharged with above regimen (4) Barretts esophagus: -Continue PPI (5) DVT prophylaxis: -SQ Lovenox Stable to be discharged home today outpatient follow-up with cardiology as scheduled Total Time Total Time Spent Total Time Spent (In Minutes): Approximately 35 minutes Total Time Includes: Examination of the Patient, Discharge Planning and Medication Reconciliation Discharge Plan Discharge Items Patient Disposition: Home - Self-Care Reason For Visit: CHEST PAIN Discharge Diagnosis: CHEST PAIN Chronic pulmonary hypertension secondary to possible chronic PE. High blood pressure Activity: Resume your previous activity Non-emergency contact: Primary Care Provider Call non-emergency contact if: you have any medication questions Follow-up/Referrals: Tarun Rice MD [Physician] - 10/20/20 (Cardiac cath procedure by Dr. Rice scheduled on , 10/20/2020 Please have lab work/COVID-19 test done prior to the procedure as instructed) Godwin Salas MD [Primary Care Provider] - (Hospital follow-up with Dr. Salas in a week.) Diet: Heart Healthy Addtl Attending Provider Instructions: Continue take Eliquis 5 mg twice daily starting tomorrow morning. You are scheduled for outpatient cardiac catheterization to include right heart catheterization, left heart catheterization with coronary angiography, , 10/20/2020, with Dr. Rice. You need to come to [facility] for repeat Covid test on 10/17 or 10/18, with basic metabolic panel to be drawn at the same time. Your Eliquis dose needs to be kept on hold for the cardiac cath: Instructions as below Take last dose of Eliquis in the evening on 10/18/2020. No Eliquis 10/19/2020. No Eliquis the day of the procedure 10/20/2020. Please call [facility] cardiology office with any question or concern. Blood pressure medications being adjusted: Lisinopril dose increased to 20 mg daily new prescription sent to pharmacy You can continue to take lisinopril 10 mg tablets 2 tablets daily until supply lasts Hydrochlorothiazide take 12.5 mg(half of 25 mg tablet) daily History of taking hydrochlorothiazide 25 mg/1 tablet every third day. Do not take meloxicam-high risk for bleeding in stomach while taking Eliquis Avoid high-dose aspirin, Advil, Aleve, ibuprofen, adcjkeyz-kzmx-nxc-counter pain/fever fisher gill net belonging to NSAIDs groups Please return to ER, with recurrent of symptoms. Pending Studies at Discharge: No Stand-Alone Forms: My Comic Reply, Smoking Cessation Medications and DC Order Prescriptions: New hydrochlorothiazide 25 mg Tablet 12.5 mg PO QAM 30 Days Qty: 15 RF: 2 Eliquis 5 mg Tablet 5 mg PO BID Qty: 0 RF: 0 lisinopril 20 mg Tablet 20 mg PO QAM 30 Days Qty: 30 RF: 0 Continued pantoprazole 40 mg tablet,delayed release (DR/EC) 40 mg PO DAILY RF: 0 Discontinued lisinopril 10 mg tablet 10 mg PO DAILY RF: 0 hydrochlorothiazide 25 mg Tablet 25 mg PO Q3D RF: 0 meloxicam 15 mg tablet 15 mg PO DAILY PRN (Reason: Pain) RF: 0 Discharge Orders: Discharge Order (Routine); Ordered 10/13/20 Ordered By: Ceci Arevalo Admission Data Admit Date/Time: 10/12/20 18:09 Attending Provider: Ceci Arevalo Admit Provider: Gavi Meyer Primary Care Provider: Godwin Salas Other Providers: Gavi Meyer ; Min Loera Other Interventions: Discharge Summary Assessment (RN) Last Done: 10/13/20 15:30
[2020-10-13 16:09] VITALS: PULSE 73
[2020-10-14] MEDS ORDERED: APIXABAN 5 MG TABLET PO SCH (09:00)
== END 2020-10-13 16:55 | disposition home or self-care (01) ==
LOC: ED 14:31 → 2S 14:31 → SUATTDRO 18:09 → 2S 20:04

== ENCOUNTER 2023-06-03 10:26 | Observation (INO) ==
[~2023-06-03 10:26] MED LIST: FUROSEMIDE 20 MG TAB PO SCH
--- NOTE | 2023-06-03 10:41 | Emergency Department Note ---
Impression & Plan Atrial flutter with rapid ventricular response, Pulmonary HTN, Acute Lyme disease, History of pulmonary embolism, Atrial fibrillation with RVR ED Provider Note NAME: JAJA GARCIA AGE: 67 SEX: M : 1955 ARRIVES VIA: Walk-In INFORMANT: Patient, ED PROVIDER(S): Alvin Rodríguez MD CHIEF COMPLAINT: Chest tightness, body aches, outpatient referral MEDICAL DECISION MAKING: Patient presents with 3 episodes of chest tightness and associated body aches. The patient did notice he had an elevated heart rate yesterday and was referred here for further evaluation and treatment. Next IV was established blood was obtained along with Lyme's and Anaplasma testing. Patient was ordered small IV fluid bolus. Patient does appear to be in A-fib with RVR and reportedly has no prior history. Patient was ordered empiric doxycycline given the patient's reported history. Patient's blood work shows a normal white count H&H with mild thrombocytopenia. The patient is Lyme's positive. This is likely the cause of the patient's mild thrombocytopenia. The patient's LFTs and electrolytes are unremarkable. Initial troponin is not elevated. Upon reassessment the patient was noted to have a regular tachycardic rhythm with narrow complex. Patient may have pes and T waves with the patient was giving 3 doses of 5 mg IV Lopressor without change and I am concerned the patient may have an atrial flutter. I did speak with Dr. Rubio with cardiology service he will make additional recommendations. Given the patient's persistent tachycardia I did speak with the on-call hospitalist service Sariah Black PA-C and the patient was admitted by Dr. Ruvalcaba. Critical Care: I have personally spent 35 minutes of critical care time in direct management of this patient. This includes bedside care, interpretation of diagnostic studies, and testing, discussion with consultants, patient, and family members, and other require inpatient management activities. This 35 minutes is in excess of all separately billable procedures. Prior /Outside records reviewed: I reviewed a prior cardiac catheterization completed by Dr. Rice in September 2020. Patient had normal LV systolic function with an EF of 55%. Was noted the patient has moderate pulmonary hypertension. Differential diagnosis: Lyme's disease, new onset A-fib, dehydration, electrolyte abnormality, infection, ACS, pneumonia among others were considered. Diagnostics, as interpreted by me: ECG: A-fib with RVR, rate 116, normal QRS, left axis deviation, no obvious ST elevations. T wave version in lead III noted. Repeat EKG interpreted by me Likely atrial flutter, ventricular rate of 128, borderline QRS, left axis deviation. Cardiac monitoring: An order was placed for continuous cardiac monitoring. The monitor shows a rate of 112 with irregularly irregular tachycardic rhythm. Patient was placed on pulse oximetry Medical decision rules: Heart score, Wells score, [id number] Imaging studies: See below I informally reviewed the patient's chest x-ray which does not show obvious pneumothorax. HPI: Patient presents due to concern for chest tightness. The patient states that he has had 3 episodes of chest tightness and associated body aches over the last 3 weeks. Patient states this most recently occurred last evening he called his primary care office he was referred here for further evaluation and treatment. The patient is a follow-up tomorrow. Patient states that he did check his heart rate and noticed his heart rate to be in the 140s. Patient denies any prior history of arrhythmia and does not take anything for rate control. He does have a known history of pulmonary hypertension and PEs which he does take Eliquis. Patient states that maybe his shortness of breath last evening seem to be worse than normal but does have chronic shortness of breath. Patient denies cough or fever. Patient denies any leg swelling or calf pain. He denies any rash. PAST MEDICAL HISTORY: See Below PAST SURGICAL HISTORY: See Below SOCIAL HISTORY: See Below HOME MEDICATIONS: See Below ALLERGIES: See Below VITALS: See Below PHYSICAL EXAMINATION: GENERAL: NAD, non-toxic. EYE EXAM: Normal conjunctiva. PERRL, no anisocoria and EOM's grossly intact w/o pain. OROPHARYNX: Moist mucus membranes, grossly normal dentition. NECK: Supple, no nuchal rigidity, no adenopathy, non-tender. No signs of meningismus. FROM of the neck with good chin to chest and neck extension. No stridor. LUNGS: Clear to auscultation. Normal chest wall mechanics. HEART: Irregularly irregular and tachycardic, no MRG. ABDOMEN: Abdomen soft, non-tender, no masses, no rebound or guarding. BACK: No CVA TTP. SKIN: No rashes and no bruising. UPPER EXTREMITIES: Upper extremities are grossly normal. LOWER EXTREMITIES: Grossly normal, no edema. Negative Homans' sign bilaterally. NEURO EXAM: A&O x3, cranial nerves II-XII grossly intact, normal speech, moves all 4 extremities. Past Med/Surg History Medical History Barretts esophagus Bilateral pulmonary embolism completed 6 months Eliquis therapy Dyslipidemia History of DVT (deep vein thrombosis) HTN (hypertension) Left anterior fascicular block Pulmonary HTN RBBB Surgical History H/O inguinal hernia repair History of cardiac cath 08/2017 - normal coronaries Family History Mother COPD (chronic obstructive pulmonary disease) Social History Smoking Status: Never smoker Tobacco Type: Cigarettes Second Hand Exposure: No; Do You Dip or Chew Tobacco: No; Hx Alcohol Use: Yes Alcohol type: beer Alcohol Intake Frequency Comment: 2 beers/day Hx Substance Use: No Preferred Language: Tongan Communication Ability: Effective Necktie Maker Required: No Beliefs That Will Affect Care: None Current Living Situation: Spouse Other Information That Helps Us Care for You: No Feels Safe at Home: Yes Safety Concerns: Feels Safe At This Time Assistive Devices: None Allergies Allergies Allergy/AdvReac Type Severity Reaction Status Date / Time naproxen Allergy Severe Anaphylaxis Verified 06/03/23 12:05 Home Meds Home Medications Medication Instructions Recorded Confirmed pantoprazole 40 mg tablet,delayed 20 mg PO DAILY 01/13/20 06/03/23 release allopurinol 300 mg tablet 300 mg PO QAM 06/03/23 06/03/23 colchicine (gout) 0.6 mg tablet 0.6 - 1.2 mg PO DAILY PRN GOUT 06/03/23 06/03/23 ATTACK famotidine 40 mg tablet 40 mg PO PM 06/03/23 06/03/23 furosemide 20 mg tablet 20 mg PO [id number] 06/03/23 06/03/23 lisinopril 20 mg tablet 20 mg PO QAM 06/03/23 06/03/23 meloxicam 15 mg tablet 15 mg PO DAILY PRN Pain 06/03/23 06/03/23 Previous Rx's Medication Instructions Recorded apixaban 5 mg tablet (Eliquis) 5 mg PO BID #0 tabs 10/13/20 Results & Data (ED) Vital Signs Vital Signs - 24 hr 06/03/23 10:34 06/03/23 11:04 06/03/23 12:37 Temperature 36.6 C Temperature Source Temporal Artery Scan Pulse Rate 116 H 113 H 110 H Pulse Rate [Right Finger] Pulse Rate from SpO2 Sensor Pulse Rhythm Pulse Rhythm [Right Finger] Pulse Strength [Right Finger] Respiratory Rate 18 Respiratory Effort / Characteristics Non-Labored Spontaneous Respiratory Depth Normal Respiratory Pattern Regular Blood Pressure 110/77 129/79 Blood Pressure [Right Arm] Blood Pressure Mean 88 Blood Pressure Mean [Right Arm] Pulse Oximetry 98 Oxygen Delivery Method Room Air Sepsis Recent Fever Within 48 Hours No Sepsis New/Unexplained Change in Mental Status No Sepsis Action Taken by Nursing No Action Required 06/03/23 12:54 06/03/23 11:03 06/03/23 11:30 Temperature Temperature Source Pulse Rate 104 H 109 H Pulse Rate [Right Finger] Pulse Rate from SpO2 Sensor 93 H Pulse Rhythm Pulse Rhythm [Right Finger] Pulse Strength [Right Finger] Respiratory Rate 19 21 Respiratory Effort / Characteristics Respiratory Depth Respiratory Pattern Blood Pressure Blood Pressure [Right Arm] Blood Pressure Mean Blood Pressure Mean [Right Arm] Pulse Oximetry 94 96 Oxygen Delivery Method Room Air Sepsis Recent Fever Within 48 Hours Sepsis New/Unexplained Change in Mental Status Sepsis Action Taken by Nursing 06/03/23 11:31 06/03/23 11:31 06/03/23 12:00 Temperature Temperature Source Pulse Rate 105 H Pulse Rate [Right Finger] Pulse Rate from SpO2 Sensor Pulse Rhythm Pulse Rhythm [Right Finger] Pulse Strength [Right Finger] Respiratory Rate 19 Respiratory Effort / Characteristics Respiratory Depth Respiratory Pattern Blood Pressure 98/74 L 120/75 Blood Pressure [Right Arm] Blood Pressure Mean 83 97 Blood Pressure Mean [Right Arm] Pulse Oximetry 96 Oxygen Delivery Method Sepsis Recent Fever Within 48 Hours Sepsis New/Unexplained Change in Mental Status Sepsis Action Taken by Nursing 06/03/23 12:00 06/03/23 12:30 06/03/23 12:30 Temperature Temperature Source Pulse Rate 96 H 99 H Pulse Rate [Right Finger] Pulse Rate from SpO2 Sensor Pulse Rhythm Pulse Rhythm [Right Finger] Pulse Strength [Right Finger] Respiratory Rate 16 21 Respiratory Effort / Characteristics Respiratory Depth Respiratory Pattern Blood Pressure 129/79 Blood Pressure [Right Arm] Blood Pressure Mean 94 Blood Pressure Mean [Right Arm] Pulse Oximetry 96 Oxygen Delivery Method Sepsis Recent Fever Within 48 Hours Sepsis New/Unexplained Change in Mental Status Sepsis Action Taken by Nursing 06/03/23 12:47 06/03/23 12:47 06/03/23 12:45 Temperature Temperature Source Pulse Rate 132 H 131 H Pulse Rate [Right Finger] Pulse Rate from SpO2 Sensor 132 H Pulse Rhythm Pulse Rhythm [Right Finger] Pulse Strength [Right Finger] Respiratory Rate 12 Respiratory Effort / Characteristics Respiratory Depth Respiratory Pattern Blood Pressure 123/95 123/95 Blood Pressure [Right Arm] Blood Pressure Mean 113 Blood Pressure Mean [Right Arm] Pulse Oximetry 96 Oxygen Delivery Method Sepsis Recent Fever Within 48 Hours Sepsis New/Unexplained Change in Mental Status Sepsis Action Taken by Nursing 06/03/23 13:03 06/03/23 13:39 06/03/23 13:40 Temperature Temperature Source Pulse Rate 129 H 124 H Pulse Rate [Right Finger] 126 H Pulse Rate from SpO2 Sensor Pulse Rhythm Irregular Pulse Rhythm [Right Finger] Irregular Pulse Strength [Right Finger] Normal Respiratory Rate 19 19 Respiratory Effort / Characteristics Non-Labored Spontaneous Respiratory Depth Normal Respiratory Pattern Regular Blood Pressure 123/102 H Blood Pressure [Right Arm] 127/80 Blood Pressure Mean Blood Pressure Mean [Right Arm] 95 Pulse Oximetry 96 96 Oxygen Delivery Method Room Air Room Air Sepsis Recent Fever Within 48 Hours Sepsis New/Unexplained Change in Mental Status Sepsis Action Taken by Nursing 06/03/23 13:00 06/03/23 13:00 06/03/23 13:00 Temperature Temperature Source Pulse Rate 130 H Pulse Rate [Right Finger] Pulse Rate from SpO2 Sensor 130 H Pulse Rhythm Pulse Rhythm [Right Finger] Pulse Strength [Right Finger] Respiratory Rate 19 Respiratory Effort / Characteristics Respiratory Depth Respiratory Pattern Blood Pressure 123/102 H 123/102 H Blood Pressure [Right Arm] Blood Pressure Mean 109 109 Blood Pressure Mean [Right Arm] Pulse Oximetry 94 Oxygen Delivery Method Sepsis Recent Fever Within 48 Hours Sepsis New/Unexplained Change in Mental Status Sepsis Action Taken by Nursing 06/03/23 13:30 06/03/23 13:30 06/03/23 14:00 Temperature Temperature Source Pulse Rate 129 H Pulse Rate [Right Finger] Pulse Rate from SpO2 Sensor 127 H Pulse Rhythm Pulse Rhythm [Right Finger] Pulse Strength [Right Finger] Respiratory Rate 13 Respiratory Effort / Characteristics Respiratory Depth Respiratory Pattern Blood Pressure 127/80 127/84 Blood Pressure [Right Arm] Blood Pressure Mean 98 108 Blood Pressure Mean [Right Arm] Pulse Oximetry 94 Oxygen Delivery Method Sepsis Recent Fever Within 48 Hours Sepsis New/Unexplained Change in Mental Status Sepsis Action Taken by Nursing 06/03/23 14:00 Temperature Temperature Source Pulse Rate 130 H Pulse Rate [Right Finger] Pulse Rate from SpO2 Sensor 130 H Pulse Rhythm Pulse Rhythm [Right Finger] Pulse Strength [Right Finger] Respiratory Rate 26 H Respiratory Effort / Characteristics Respiratory Depth Respiratory Pattern Blood Pressure Blood Pressure [Right Arm] Blood Pressure Mean Blood Pressure Mean [Right Arm] Pulse Oximetry 94 Oxygen Delivery Method Sepsis Recent Fever Within 48 Hours Sepsis New/Unexplained Change in Mental Status Sepsis Action Taken by [facility] Medications Current Medication List: was personally reviewed by me Laboratory Data Attestation: I reviewed the patient's lab results. 06/03/23 11:04 06/03/23 11:04 Lab Results 06/03/23 06/03/23 06/03/23 Range/Units 11:04 11:04 11:04 WBC 6.97 (4.8-10.8) K/ul RBC 4.95 (4.70-6.10) M/uL Hgb 15.7 (14.0-18.0) g/dl Hct 45.5 (42.0-52.0) % MCV 91.9 (80.0-100.0) fL MCH 31.7 (25.0-34.0) pg MCHC 34.5 (32.0-36.0) g/dL RDW Std Deviation 48.9 H (36.4-46.3) fL RDW Coeff of Dirk 14.6 H (11.5-14.5) % Plt Count 113 L (130-400) K/uL MPV 12.3 (9.4-12.4) fL Immature Gran % (Auto) 0.6 % Neut % (Auto) 42.5 % Lymph % (Auto) 32.6 % [place] % (Auto) 22.4 % Eos % (Auto) 1.0 % Baso % (Auto) 0.9 % Neut # (Auto) 2.97 (1.40-6.50) K/uL Lymph # (Auto) 2.27 (1.2-3.4) K/uL [place] # (Auto) 1.56 H (0.11-0.59) K/uL Eos # (Auto) 0.07 (0-0.50) K/uL Baso # (Auto) 0.06 (0-0.2) K/uL Immature Gran # (Auto) 0.04 (0.01-0.20) K/uL RBC Morphology Unremarkable PT 12.7 H (9.0-12.0) Seconds INR 1.2 H (0.9-1.1) Sodium 138 (136-145) mmol/L Potassium 4.2 (3.5-5.1) mmol/L Chloride 106 (98-107) mmol/L Carbon Dioxide 25 (21-32) mmol/L Anion Gap 7 (3-11) BUN 18 (6-23) mg/dl Creatinine 1.11 (0.6-1.4) mg/dl Est Cr Clr Drug Dosing 73.6 ml/min Est GFR ( Amer) 78.1 ml/min Est GFR (Non-Af Amer) 67.4 ml/min BUN/Creatinine Ratio 16.2 (10-20) Glucose 91 (70-99(Fasting)) mg/dl Calcium 9.2 (8.6-10.3) mg/dl Phosphorus 2.9 (2.5-4.9) mg/dl Magnesium 2.3 (1.7-2.4) mg/dl Total Bilirubin 0.7 (0.2-1.0) mg/dl AST 34 (13-39) U/L ALT 44 (7-52) U/L Alkaline Phosphatase 91 (34-104) U/L Troponin I High Sens 11.9 (0-20) pg/ml Total Protein 7.7 (6.0-8.3) gm/dl Albumin 3.8 (3.4-5.0) gm/dl Globulin 3.9 (2.5-4.0) gm/dl Albumin/Globulin Ratio 1.0 (0.9-2) TSH (0.300-4.500) uIu/ml Anaplasma Smear See Comment Lyme Disease IgG Ab (Negative) Lyme Disease IgM Ab (Negative) 06/03/23 06/03/23 Range/Units 11:04 11:04 WBC (4.8-10.8) K/ul RBC (4.70-6.10) M/uL Hgb (14.0-18.0) g/dl Hct (42.0-52.0) % MCV (80.0-100.0) fL MCH (25.0-34.0) pg MCHC (32.0-36.0) g/dL RDW Std Deviation (36.4-46.3) fL RDW Coeff of Dirk (11.5-14.5) % Plt Count (130-400) K/uL MPV (9.4-12.4) fL Immature Gran % (Auto) % Neut % (Auto) % Lymph % (Auto) % [place] % (Auto) % Eos % (Auto) % Baso % (Auto) % Neut # (Auto) (1.40-6.50) K/uL Lymph # (Auto) (1.2-3.4) K/uL [place] # (Auto) (0.11-0.59) K/uL Eos # (Auto) (0-0.50) K/uL Baso # (Auto) (0-0.2) K/uL Immature Gran # (Auto) (0.01-0.20) K/uL RBC Morphology PT (9.0-12.0) Seconds INR (0.9-1.1) Sodium (136-145) mmol/L Potassium (3.5-5.1) mmol/L Chloride (98-107) mmol/L Carbon Dioxide (21-32) mmol/L Anion Gap (3-11) BUN (6-23) mg/dl Creatinine (0.6-1.4) mg/dl Est Cr Clr Drug Dosing ml/min Est GFR ( Amer) ml/min Est GFR (Non-Af Amer) ml/min BUN/Creatinine Ratio (10-20) Glucose (70-99(Fasting)) mg/dl Calcium (8.6-10.3) mg/dl Phosphorus (2.5-4.9) mg/dl Magnesium (1.7-2.4) mg/dl Total Bilirubin (0.2-1.0) mg/dl AST (13-39) U/L ALT (7-52) U/L Alkaline Phosphatase (34-104) U/L Troponin I High Sens (0-20) pg/ml Total Protein (6.0-8.3) gm/dl Albumin (3.4-5.0) gm/dl Globulin (2.5-4.0) gm/dl Albumin/Globulin Ratio (0.9-2) TSH 3.538 (0.300-4.500) uIu/ml Anaplasma Smear Lyme Disease IgG Ab Positive A (Negative) Lyme Disease IgM Ab Positive A (Negative) Administered Medications Discontinued Medications Doxycycline Hyclate (Doxycycline Hyclate 100 Mg Cap) 100 mg PO NOW STA Stop: 06/03/23 11:10 Last Admin: 06/03/23 11:25 Dose: 100 mg Documented By: ARNAV Sodium Chloride (Nss) 500 mls @ 999 mls/hr IV .Q31M NU Stop: 06/03/23 11:45 Last Infusion: 06/03/23 12:01 Dose: 0 mls/hr Documented By: Admin: 06/03/23 11:26 Dose: 999 mls/hr Documented By: ARNAV Metoprolol Tartrate (Metoprolol Tartrate 1 Mg/Ml Vial) 5 mg IV NOW STA Stop: 06/03/23 12:28 Last Admin: 06/03/23 12:37 Dose: 5 mg Documented By: RSEileen Metoprolol Tartrate (Metoprolol Tartrate 1 Mg/Ml Vial) 5 mg IV NOW STA Stop: 06/03/23 13:01 Last Admin: 06/03/23 12:45 Dose: 5 mg Documented By: RSEileen Metoprolol Tartrate (Metoprolol Tartrate 1 Mg/Ml Vial) 5 mg IV NOW STA Stop: 06/03/23 13:02 Last Admin: 06/03/23 13:03 Dose: 5 mg Documented By: RSL Imaging Data Radiologist's Impression: Chest X-Ray 06/03/23 11:10 XR chest 1V portable CLINICAL HISTORY: chest tightness TECHNIQUE: Single frontal radiograph of the chest was obtained. Comparison: Comparison is made to chest and abdomen radiographs 05/03/2022 FINDINGS: No lines and tubes are seen. Calcified aortic knob is seen. The lungs are clear. No evidence of pleural effusion or pneumothorax. IMPRESSION: No acute chest disease. ACT 112: Negative or not required by law. Electronically signed by: Ghassan Hernandez M.D. 06/03/2023 11:26 AM Discharge Plan Visit Data Chief Complaint: Cardiac Assessment Stated Complaint: chest tightness ED Provider: Alvin Rodríguez Discharge Problem: Atrial flutter with rapid ventricular response, Pulmonary HTN, Acute Lyme disease, History of pulmonary embolism, Atrial fibrillation with RVR Patient Disposition: Admitted As Inpatient Discharge Instructions Interventions: ED Discharge Assessment Last Done: 06/03/23 16:27
[2023-06-03] MEDS ORDERED: DOXYCYCLINE HYCLATE 100 MG CAP PO STA (11:09)
[2023-06-03] MEDS ORDERED: SODIUM CHLORIDE 0.9% 500 ML IV SCH (11:15)
--- NOTE | 2023-06-03 11:28 | XRay Report ---
XR chest 1V portable CLINICAL HISTORY: chest tightness TECHNIQUE: Single frontal radiograph of the chest was obtained. Comparison: Comparison is made to chest and abdomen radiographs 05/03/2022 FINDINGS: No lines and tubes are seen. Calcified aortic knob is seen. The lungs are clear. No evidence of pleur al effusion or pneumothorax. IMPRESSION: No acute chest disease. ACT 112: Negative or not required by law. Electronically signed by: Ghassan Hernandez M.D. 06/03/2023 11:26 AM
[2023-06-03 11:38] LABS: Hematocrit (blood only) 45.5 % (42.0-52.0); Hemoglobin 15.7 g/dl (14.0-18.0); Mean Corpuscular Hemoglobin 31.7 pg (25.0-34.0); Mean Corpuscular Hgb Conc 34.5 g/dL (32.0-36.0); Mean Corpuscular Volume 91.9 fL (80.0-100.0); Mean Platelet Volume 12.3 fL (9.4-12.4); Platelet Count 113 K/uL (130-400); RDW Coefficient of Variation 14.6 % (11.5-14.5); RDW Standard Deviation 48.9 fL (36.4-46.3); Red Blood Count 4.95 M/uL (4.70-6.10); White Blood Count 6.97 K/ul (4.8-10.8)
[2023-06-03 11:47] LABS: Albumin Level 3.8 gm/dl (3.4-5.0); Bilirubin,Total 0.7 mg/dl (0.2-1.0); Calcium 9.2 mg/dl (8.6-10.3); Magnesium 2.3 mg/dl (1.7-2.4); Potassium 4.2 mmol/L (3.5-5.1)
[2023-06-03 11:53] LABS: BUN Creatinine Ratio 16.2 (10-20); Creatinine Clr Calc Pharmacy 73.6 ml/min; Est GFR (African American) 78.1 ml/min; Est GFR (Non-African American) 67.4 ml/min; Globulin 3.9 gm/dl (2.5-4.0); Phosphorus 2.9 mg/dl (2.5-4.9); Total Protein 7.7 gm/dl (6.0-8.3)
[2023-06-03 11:54] LABS: Troponin I High Sensitivity 11.9 pg/ml (0-20)
[2023-06-03 12:09] LABS: INR 1.2 (0.9-1.1); Prothrombin Time 12.7 Seconds (9.0-12.0)
[2023-06-03 12:16] LABS: Lyme Ab IgG w/WB Rflx Positive (Negative); Lyme Ab IgM w/WB Rflx Positive (Negative)
[2023-06-03] MEDS ORDERED: METOPROLOL TARTRATE 1 MG/ML VIAL IV STA ×3 (12:27→13:01)
[2023-06-03 12:31] LABS: Basophils # (auto) 0.06 K/uL (0-0.2); Basophils % (auto) 0.9 %; Eosinophils # (auto) 0.07 K/uL (0-0.50); Immature Granulocytes # (auto) 0.04 K/uL (0.01-0.20); Immature Granulocytes % (auto) 0.6 %; Lymphocytes # (auto) 2.27 K/uL (1.2-3.4); Lymphocytes % (auto) 32.6 %; Monocytes # (auto) 1.56 K/uL (0.11-0.59); Monocytes % (auto) 22.4 %; Neutrophils # (auto) 2.97 K/uL (1.40-6.50); Neutrophils % (auto) 42.5 %
[2023-06-03 12:34] LABS: RBC Morphology Unremarkable
[2023-06-03 13:56] LABS: Appearance Urine Clear (Clear); Bilirubin Urine Negative (Negative); Blood Urine Negative (Negative); Color Urine Yellow; Glucose Urine UA Negative (Negative); Ketones Urine Negative (Negative); Leukocyte Esterase Urine Negative (Negative); Nitrite Urine Negative (Negative); Protein Urine Negative (Negative); Specific Gravity Urine 1.014 (1.000-1.030); Urobilinogen Urine Negative (Negative); pH Urine 6.5 (4.5-7.5)
--- NOTE | 2023-06-03 14:21 | Cardiology Consultation ---
Date of Consultation June 03, 2023 Assessment & Plan (1) Atrial flutter: (2) Acute Lyme disease: (3) Pulmonary HTN: (4) History of pulmonary embolism: (5) HTN (hypertension): Plan See attending electroencephalographic technician's documentation for recommendations and plan of care. Supervising Physician Co-Signing Physician Notes Attending Staff: Pt seen and evaluated with [facility] staff. Concur with observations and plans. 67 yo man presenting with fevers, joint pains and fatigue - Dx: Acute Lyme Disease Cardiac Dx: Atrial flutter * Pt noted to be tachycardic * EKG appears to be consistent with atrial flutter * Pt with hx of PE * By report, also develop Chronic Thromboembolic Pulmonary Hypertension * Patient was evaluated in [place] - no PTE surgery * Pt is not on pulmonary vasodilators. * On chronic systemic anticoagulation. * Joint pains, NELSON, fatigue - Dx with acute Lyme disease * No ABX prior to the presentation for Lyme * No reported rash * No chest pain * No reported palpitations * No LE edema * No PND * No Orthopnea Plans for: * Repeat ECHO * Continue systemic anticoagulation with Eliquis 5 mg po BID * Ventricular rate - >100 * Lopressor 5 mg IV x 1 - may repeat Lopressor 5 mg IV until HR is <100 * Can start standing Lopressor 25 mg po TID * Patient does not appear to be markedly volume overloaded * Continue Lasix 20 mg po M,W,F * K+ goal 4.5-5 * Mag ++ goal >2 * SBP 125 mmHg * Continue Lisinopril @ slightly lower dose of 10 mg po per day (may need the BP for escalating Beta Blockers) * Check TSH * Plans for EP consultation - may need to be considered for ablation * Will review degree of PH - may be a candidate for Riociguat Scott Rodriguez History of Present Illness Reason for Consultation: Atrial flutter RVR Requesting Physician: Dr. Rodríguez, ER physician Attending Physician: Attending Jewelry Sorter: Dr. Alina Rodriguez History of Present Illness Patient is a 67 year old male known to [facility] Cardiology. History includes: 1. Acute B/L pulmonary emboli diagnosed in December 2019, now on chronic Eliquis 2. Hypertension 3. Evaluation for chest pain , dyspnea August 2017 , Sep 2020 with diagnostic cardiac catheterization demonstrating angiographically normal coronaries, normal LV systolic function and normal left end-diastolic pressure with elevated pulmonary pressures 4. 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 5. Chronic Jacome's esophagus with reflux 6. Past moderate moderate to severe elevation pulmonary pressures - improving. Follows with pulmonology yearly Presents to [facility] with complaints of fever, chills, and palpitations. Patient reported joint aches/pains, headache and then fever/chills x2-4 weeks. He pulled a tick off of him approx 1 month ago. No target lesions identified. He noted worsening SOB and chest tightness with HR's in the 140's at home yesterday. He contacted PCP with these issues/complaints and was referred to [place] ER for evaluation. Initial Lyme testing +. Anaplasmosis testing is pending. Found to also have new onset atrial flutter with rapid ventricular response. Duration is unknown but suggestive of at least several days based on symptoms, possibly longer. Does not take AV kathia blocking agents at home. On chronic Eliquis for history of prior PE/DVT and chronic thromboembolic disease. He reports compliance with Eliquis. No missed doses. At time of consult, patient resting comfortably in bed. No significantly symptoms with the elevated HR's at rest. He reports SOB and more fatigue with activity. No current headaches. No current fever or chills. no orthopnea, PND or edema. Allergies Allergy/AdvReac Type Severity Reaction Status Date / Time naproxen Allergy Severe Anaphylaxis Verified 06/03/23 12:05 Home Medications Medication Instructions Recorded Confirmed Type pantoprazole 40 mg tablet,delayed 20 mg PO DAILY 01/13/20 06/03/23 History release apixaban 5 mg tablet (Eliquis) 5 mg PO BID #0 tabs 10/13/20 06/03/23 Rx allopurinol 300 mg tablet 300 mg PO QAM 06/03/23 06/03/23 History colchicine (gout) 0.6 mg tablet 0.6 - 1.2 mg PO DAILY PRN GOUT 06/03/23 06/03/23 History ATTACK famotidine 40 mg tablet 40 mg PO PM 06/03/23 06/03/23 History furosemide 20 mg tablet 20 mg PO 3XWK 06/03/23 06/03/23 History lisinopril 20 mg tablet 20 mg PO QAM 06/03/23 06/03/23 History meloxicam 15 mg tablet 15 mg PO DAILY PRN Pain 06/03/23 06/03/23 History Patient History Medical History Barretts esophagus Bilateral pulmonary embolism completed 6 months Eliquis therapy Dyslipidemia History of DVT (deep vein thrombosis) HTN (hypertension) Left anterior fascicular block Pulmonary HTN RBBB Surgical History H/O inguinal hernia repair History of cardiac cath 08/2017 - normal coronaries Family History Mother COPD (chronic obstructive pulmonary disease) Social History Smoking Status: Never smoker Tobacco Type: Cigarettes Second Hand Exposure: No; Do You Dip or Chew Tobacco: No; Hx Alcohol Use: Yes Alcohol type: beer Alcohol Intake Frequency Comment: 2 beers/day Hx Substance Use: No Preferred Language: Mohawk Communication Ability: Effective Machining Associate Required: No Beliefs That Will Affect Care: None Current Living Situation: Spouse Feels Safe at Home: Yes Assistive Devices: None Review of Systems Review of Systems: All systems reviewed & are unremarkable except as noted in HPI & below Physical Exam Constitutional: WD/WN, vitals as above well developed and well nourished; no acute distress Neck: trachea midline, no thyromegaly normal visual inspection Respiratory: normal respiratory effort; no labored breathing Auscultation: lungs clear to auscultation bilaterally Cardiovascular: Rate/Rhythm: + tachycardic Heart Sounds: normal S1 and normal S2; no murmur Vessels: no JVD Extremities: no edema Gastrointestinal (Abdomen): normal bowel sounds, soft, nontender, no hepatosplenomegaly Skin: no rashes, warm and dry Neurologic: PERRL, EOMI, accommodation nl, no face palsy, no dysarthria Results & Data Vital Signs (Past 12 Hours) Vital Signs Temp Pulse Pulse Resp BP BP Pulse Ox 06/03/23 14:00 130 H 26 H 94 06/03/23 14:00 127/84 06/03/23 13:30 129 H 13 94 06/03/23 13:30 127/80 06/03/23 13:00 130 H 19 94 06/03/23 13:00 123/102 H 06/03/23 13:00 123/102 H 06/03/23 13:40 126 H 19 127/80 96 06/03/23 13:39 124 H 19 96 06/03/23 13:03 129 H 123/102 H 06/03/23 12:45 131 H 123/95 06/03/23 12:47 132 H 12 96 06/03/23 12:47 123/95 06/03/23 12:30 99 H 21 06/03/23 12:30 129/79 96 06/03/23 12:00 96 H 16 06/03/23 12:00 120/75 96 06/03/23 11:31 105 H 19 06/03/23 11:31 98/74 L 06/03/23 11:30 109 H 21 96 06/03/23 11:03 104 H 19 94 06/03/23 12:54 06/03/23 12:37 110 H 129/79 06/03/23 11:04 113 H 06/03/23 10:34 36.6 C 116 H 18 110/77 98 O2 Del Method 06/03/23 14:00 06/03/23 14:00 06/03/23 13:30 06/03/23 13:30 06/03/23 13:00 06/03/23 13:00 06/03/23 13:00 06/03/23 13:40 Room Air 06/03/23 13:39 Room Air 06/03/23 13:03 06/03/23 12:45 06/03/23 12:47 06/03/23 12:47 06/03/23 12:30 06/03/23 12:30 06/03/23 12:00 06/03/23 12:00 06/03/23 11:31 06/03/23 11:31 06/03/23 11:30 06/03/23 11:03 06/03/23 12:54 Room Air 06/03/23 12:37 06/03/23 11:04 06/03/23 10:34 Room Air Laboratory Results Cardiac Enzymes 06/03/23 Range/Units 11:04 AST 34 (13-39) U/L Troponin I High Sens 11.9 (0-20) pg/ml Coagulation 06/03/23 Range/Units 11:04 PT 12.7 H (9.0-12.0) Seconds CBC 06/03/23 Range/Units 11:04 WBC 6.97 (4.8-10.8) K/ul RBC 4.95 (4.70-6.10) M/uL Hgb 15.7 (14.0-18.0) g/dl Hct 45.5 (42.0-52.0) % Plt Count 113 L (130-400) K/uL Neut # (Auto) 2.97 (1.40-6.50) K/uL Lymph # (Auto) 2.27 (1.2-3.4) K/uL [place] # (Auto) 1.56 H (0.11-0.59) K/uL Eos # (Auto) 0.07 (0-0.50) K/uL Baso # (Auto) 0.06 (0-0.2) K/uL Comprehensive Metabolic Panel 06/03/23 Range/Units 11:04 Sodium 138 (136-145) mmol/L Potassium 4.2 (3.5-5.1) mmol/L Chloride 106 (98-107) mmol/L Carbon Dioxide 25 (21-32) mmol/L BUN 18 (6-23) mg/dl Creatinine 1.11 (0.6-1.4) mg/dl Glucose 91 (70-99(Fasting)) mg/dl Calcium 9.2 (8.6-10.3) mg/dl AST 34 (13-39) U/L ALT 44 (7-52) U/L Alkaline Phosphatase 91 (34-104) U/L Total Protein 7.7 (6.0-8.3) gm/dl Albumin 3.8 (3.4-5.0) gm/dl Intake and Output 06/02/23 06/03/23 06/03/23 22:59 06:59 14:59 Intake Total 500 / 500 Balance 500 / 500 Intake: IV 500 / 500 Sodium Chloride 0.9% 500 ml @ 500 / 500 999 mls/hr IV .Q31M [facility] Rx#: [id number] Other: Weight 101 kg Patient Weight 06/04/23 06:59 Weight 101 kg Diagnostic Findings Telemetry reviewed: Typical atrial flutter at 130 bmp EKG on arrival: 06/03/2023 Atrial flutter with ventricular rate of 130 bpm RBBB LAFB compared with prior EKG, Atrial flutter has replaced NSR. Chest X-Ray 06/03/23 11:10 XR chest 1V portable CLINICAL HISTORY: chest tightness TECHNIQUE: Single frontal radiograph of the chest was obtained. Comparison: Comparison is made to chest and abdomen radiographs 05/03/2022 FINDINGS: No lines and tubes are seen. Calcified aortic knob is seen. The lungs are clear. No evidence of pleural effusion or pneumothorax. IMPRESSION: No acute chest disease. Electronically signed by: Ghassan Hernandez M.D. 06/03/2023 11:26 AM Prior echo dated Jul 2022: Interpretation Summary The primary indication after review was deemed appropriate and the examination was performed. Normal LV chamber size with mild concentric LVH. Normal LV systolic function without regional wall motion abnormality. Calculated LV ejection Fraction = 63% (bi-plane method of discs). Grade I diastolic dysfunction. The right ventricular cavity size is enlarged (basal dimension > 4.2 cm RV apical 4 chamber view). The right ventricular systolic function is normal as assessed by tricuspid annular plane systolic excursion (TAPSE) (normal >1.7 cm). No significant valvular pathology. Mild right atrial enlargement. Moderate left atrial enlargement. Medications Administered Medications pantoprazole 40 mg tablet,delayed release 20 mg PO DAILY 01/13/20 [History Confirmed 06/03/23] apixaban 5 mg tablet (Eliquis) 5 mg PO BID #0 tabs 10/13/20 [Rx Confirmed 06/03/23] allopurinol 300 mg tablet 300 mg PO QAM 06/03/23 [History Confirmed 06/03/23] colchicine (gout) 0.6 mg tablet 0.6 - 1.2 mg PO DAILY PRN GOUT ATTACK 06/03/23 [History Confirmed 06/03/23] famotidine 40 mg tablet 40 mg PO PM 06/03/23 [History Confirmed 06/03/23] furosemide 20 mg tablet 20 mg PO 3XWK 06/03/23 [History Confirmed 06/03/23] lisinopril 20 mg tablet 20 mg PO QAM 06/03/23 [History Confirmed 06/03/23] meloxicam 15 mg tablet 15 mg PO DAILY PRN Pain 06/03/23 [History Confirmed 06/03/23]
--- NOTE | 2023-06-03 14:27 | Electrocardiogram Report ---
Test Reason : Blood Pressure : / mmHG Vent. Rate : 128 BPM Atrial Rate : 128 BPM P-R Int : 138 ms QRS Dur : 114 ms QT Int : 302 ms P-R-T Axes : 098 -81 -03 degrees QTc Int : 440 ms Sinus tachycardia Left axis deviation Incomplete right bundle branch block Abnormal ECG When compared with ECG of 03-MAY-2022 11:18, Vent. rate has increased BY 73 BPM Confirmed by Luan Hagan ([id number]) on 06/03/2023 2:26:55 PM Referred By: REFERRED SELF Confirmed By:Luan Hagan
--- NOTE | 2023-06-03 14:34 | History & Physical Report ---
Date of Service June 03, 2023 Assessment & Plan (1) Atrial flutter: Plan: - Acute, new onset - EKG reviewed showing such, likely has been ongoing intermittently over the past 2 weeks with patient's symptoms -Cardiology consulted, follows routinely with Dr. Rice as an outpatient -Given 3 doses of IV Lopressor in the ER without improvement, the patient is asymptomatic at this time even with heart rate in the 130s to 140s - pt is not on AV kathia blocking agents prior to admission -Check 2D echo -Initial troponin is 11, trend every 6 hours x 2 more sets -Morning EKG ordered (2) HTN (hypertension): Plan: -Chronic, stable -Continue medications with lisinopril, 20 mg daily furosemide 20 mg 3 times per week on hold currently does not appear to be volume overloaded (3) Dyslipidemia: Plan: -Chronic, stable -Diet controlled, not on statin therapy (4) Pulmonary HTN: Plan: - Chronic, Stable - Pt has not been tested for sleep apnea, may benefit from such as an outpatient and possibly needs CPAP - BMI of 32.9 but appears fairly muscular in calf muscles, thick neck habitus may attribute to possibility of increased risk for sleep apnea. (5) History of pulmonary embolism: Plan: - Occurred in December 2019 with DVT/PE -Chronically anticoagulated since then on Eliquis (6) Acute Lyme disease: Plan: -Lyme's testing positive today, started on doxycycline, patient was counseled at bedside regarding adverse effects of doxycycline, administration, wearing sunscreen, light sensitivity, possible GI adverse effects and utilizing a probiotic or eating a yogurt with probiotics in the middle of the day. Patient expressed understanding and all his questions and concerns were addressed DVT PPx: - teds, scds, Eliquis CODE: Full code Dispo: From home, likely to remain in the hospital x 1-2 days A total of 76 minutes were spent with greater than 50% of that time face to face with the patient, personally reviewing all current laboratories, imaging studies, past medication reconciliation, outpatient chart review, and discussion with specialists to collaborate care for the patient with attending. Please see attending documentation for corrections and/or additions. History of Present Illness Chief Complaint: Elevated heart rate Primary Care Provider: Godwin Salas MD This is a 67-year-old male with PMHx of a flutter, HTN, GERD, gout, pulmonary hypertension, PE/DVT in December 2019 anticoagulated on Eliquis. Intermittent symptoms started over 2 weeks ago with chest tightness but no chest pain or palpitations, and felt headache with throbbing and his eyes hurt which lasted about 4 hours. It went away overnight. He also noticed worsening body aches and pains at that time. About 1 week after the first event, he felt the same symptoms and lasted again about 4 hours and went away overnight and was fine when he woke up. Pt admits to having intermittent chills, headache, muscle tightness and joint pain specifically in his elbows and knees. He has has chronic R hip pain chronically. He has been taking his medications accurately. Pt presents this morning as his pulse oximeter this morning read HR in the 140s. He is currently sitting comfortable in bed without acute complaints. Allergies Allergy/AdvReac Type Severity Reaction Status Date / Time naproxen Allergy Severe Anaphylaxis Verified 06/03/23 12:05 Home Medications Medication Instructions Recorded Confirmed Type pantoprazole 40 mg tablet,delayed 20 mg PO DAILY 01/13/20 06/03/23 History release apixaban 5 mg tablet (Eliquis) 5 mg PO BID #0 tabs 10/13/20 06/03/23 Rx allopurinol 300 mg tablet 300 mg PO QAM 06/03/23 06/03/23 History colchicine (gout) 0.6 mg tablet 0.6 - 1.2 mg PO DAILY PRN GOUT 06/03/23 06/03/23 History ATTACK famotidine 40 mg tablet 40 mg PO PM 06/03/23 06/03/23 History furosemide 20 mg tablet 20 mg PO 3XWK 06/03/23 06/03/23 History lisinopril 20 mg tablet 20 mg PO QAM 06/03/23 06/03/23 History meloxicam 15 mg tablet 15 mg PO DAILY PRN Pain 06/03/23 06/03/23 History Past Med/Surg History Medical History Barretts esophagus Bilateral pulmonary embolism completed 6 months Eliquis therapy Dyslipidemia History of DVT (deep vein thrombosis) HTN (hypertension) Left anterior fascicular block Pulmonary HTN RBBB Surgical History H/O inguinal hernia repair History of cardiac cath 08/2017 - normal coronaries Family History Mother COPD (chronic obstructive pulmonary disease) Social History Smoking Status: Never smoker Tobacco Type: Cigarettes Second Hand Exposure: No; Do You Dip or Chew Tobacco: No; Hx Alcohol Use: Yes Alcohol type: beer Alcohol Intake Frequency Comment: 2 beers/day Hx Substance Use: No Preferred Language: Cameroonian Communication Ability: Effective Raker Buffing Wheel Required: No Beliefs That Will Affect Care: None Current Living Situation: Spouse Feels Safe at Home: Yes Assistive Devices: None Review of Systems Review of Systems: Constitutional: No fever, sweats or chills Eyes: No diplopia, no worsening or blurred vision ENT: normal hearing, no trouble swallowing Respiratory: No cough, sputum, dyspnea at rest or on exertion Cardiovascular: As per HPI, currently No chest pain, tightness or palpitations Abdomen: No pain, nausea, vomiting, diarrhea or constipation Musculoskeletal: No joint pain, calf pain, swelling Neurologic: No weakness, numbness/tingling, or balance problems Psychiatric: No anxiety or depression Skin: No rash or itch Physical Exam Physical Exam: General: awake, alert, no apparent distress, physically fit appearing male Head: Normocephalic, atraumatic ENT: PERRL, EOMI, no pharyngeal exudate, mucous membranes moist Chest: Clear to auscultation, on room air, no adventitious breath sounds Cardiac: Sinus tachy with HR in 140s at bedside, no murmur, no JVD, normal peripheral pulses, good capillary refill Abdominal: NABS x 4 quadrants, soft, nondistended, nontender to palpation, no rebound or guarding Extremities: Normal inspection, no peripheral edema or erythema, calfs nontender to palpation Psych: Normal mood and affect Neuro: AAO x 3, strength intact bilaterally and rated 5/5, no motor deficits, speech is clear, no peripheral sensory deficits Results & Data Results & Data Vital Signs (Past 12 Hours) Vital Signs Temp Pulse Pulse Resp BP BP Pulse Ox 06/03/23 14:00 130 H 26 H 94 06/03/23 14:00 127/84 06/03/23 13:30 129 H 13 94 06/03/23 13:30 127/80 06/03/23 13:00 130 H 19 94 06/03/23 13:00 123/102 H 06/03/23 13:00 123/102 H 06/03/23 13:40 126 H 19 127/80 96 06/03/23 13:39 124 H 19 96 06/03/23 13:03 129 H 123/102 H 06/03/23 12:45 131 H 123/95 06/03/23 12:47 132 H 12 96 06/03/23 12:47 123/95 06/03/23 12:30 99 H 21 06/03/23 12:30 129/79 96 06/03/23 12:00 96 H 16 06/03/23 12:00 120/75 96 06/03/23 11:31 105 H 19 06/03/23 11:31 98/74 L 06/03/23 11:30 109 H 21 96 06/03/23 11:03 104 H 19 94 06/03/23 12:54 06/03/23 12:37 110 H 129/79 06/03/23 11:04 113 H 06/03/23 10:34 36.6 C 116 H 18 110/77 98 O2 Del Method 06/03/23 14:00 06/03/23 14:00 06/03/23 13:30 06/03/23 13:30 06/03/23 13:00 06/03/23 13:00 06/03/23 13:00 06/03/23 13:40 Room Air 06/03/23 13:39 Room Air 06/03/23 13:03 06/03/23 12:45 06/03/23 12:47 06/03/23 12:47 06/03/23 12:30 06/03/23 12:30 06/03/23 12:00 06/03/23 12:00 06/03/23 11:31 06/03/23 11:31 06/03/23 11:30 06/03/23 11:03 06/03/23 12:54 Room Air 06/03/23 12:37 06/03/23 11:04 06/03/23 10:34 Room Air Laboratory Results 08/14/23 08/14/23 08/14/23 Unknown 11:04 11:04 WBC RBC Hgb Hct MCV MCH MCHC RDW Std Deviation RDW Coeff of Dirk Plt Count MPV Immature Gran % (Auto) Neut % (Auto) Lymph % (Auto) [place] % (Auto) Eos % (Auto) Baso % (Auto) Neut # (Auto) Lymph # (Auto) [place] # (Auto) Eos # (Auto) Baso # (Auto) Immature Gran # (Auto) RBC Morphology PT INR Sodium Potassium Chloride Carbon Dioxide Anion Gap BUN Creatinine Est Cr Clr Drug Dosing Est GFR ( Amer) Est GFR (Non-Af Amer) BUN/Creatinine Ratio Glucose Calcium Phosphorus Magnesium Total Bilirubin AST ALT Alkaline Phosphatase Troponin I High Sens Total Protein Albumin Globulin Albumin/Globulin Ratio TSH 3.538 Urine Color Yellow Urine Appearance Clear Urine pH 6.5 Ur Specific [place] 1.014 Urine Protein Negative Urine Glucose (UA) Negative Urine Ketones Negative Urine Blood Negative Urine Nitrite Negative Urine Bilirubin Negative Urine Urobilinogen Negative Ur Leukocyte Esterase Negative Anaplasma Smear Lyme Disease IgG Ab Positive A Lyme Disease IgM Ab Positive A 06/03/23 06/03/23 06/03/23 11:04 11:04 11:04 WBC 6.97 RBC 4.95 Hgb 15.7 Hct 45.5 MCV 91.9 MCH 31.7 MCHC 34.5 RDW Std Deviation 48.9 H RDW Coeff of Dirk 14.6 H Plt Count 113 L MPV 12.3 Immature Gran % (Auto) 0.6 Neut % (Auto) 42.5 Lymph % (Auto) 32.6 [place] % (Auto) 22.4 Eos % (Auto) 1.0 Baso % (Auto) 0.9 Neut # (Auto) 2.97 Lymph # (Auto) 2.27 [place] # (Auto) 1.56 H Eos # (Auto) 0.07 Baso # (Auto) 0.06 Immature Gran # (Auto) 0.04 RBC Morphology Unremarkable PT 12.7 H INR 1.2 H Sodium 138 Potassium 4.2 Chloride 106 Carbon Dioxide 25 Anion Gap 7 BUN 18 Creatinine 1.11 Est Cr Clr Drug Dosing 73.6 Est GFR ( Amer) 78.1 Est GFR (Non-Af Amer) 67.4 BUN/Creatinine Ratio 16.2 Glucose 91 Calcium 9.2 Phosphorus 2.9 Magnesium 2.3 Total Bilirubin 0.7 AST 34 ALT 44 Alkaline Phosphatase 91 Troponin I High Sens 11.9 Total Protein 7.7 Albumin 3.8 Globulin 3.9 Albumin/Globulin Ratio 1.0 TSH Urine Color Urine Appearance Urine pH Ur Specific [place] Urine Protein Urine Glucose (UA) Urine Ketones Urine Blood Urine Nitrite Urine Bilirubin Urine Urobilinogen Ur Leukocyte Esterase Anaplasma Smear See Comment Lyme Disease IgG Ab Lyme Disease IgM Ab Diagnostic Findings Chest X-Ray 06/03/23 11:10 XR chest 1V portable CLINICAL HISTORY: chest tightness TECHNIQUE: Single frontal radiograph of the chest was obtained. Comparison: Comparison is made to chest and abdomen radiographs 05/03/2022 FINDINGS: No lines and tubes are seen. Calcified aortic knob is seen. The lungs are clear. No evidence of pleural effusion or pneumothorax. IMPRESSION: No acute chest disease. ACT 112: Negative or not required by law. Electronically signed by: Ghassan Hernandez M.D. 06/03/2023 11:26 AM ECG Additional Comments: Reviewed showing atrial flutter, partial RBBB, HR in 140s Code Status & VTE Plan Code Status Full code - discussed with the patient at bedside Supervising Physician Co-Signing Physician Notes 67 year old male seen by cardiology for rapid heart rate , aflutter with rvr. given lopressor . echo ordered . appreciate cards input patient already on eliquis will continue rest of home meds at this time
[2023-06-03] MEDS ORDERED: ACETAMINOPHEN 325 MG TAB PO PRN (15:43)
[2023-06-03] MEDS ORDERED: METOPROLOL TARTRATE 1 MG/ML VIAL IV PRN (16:18)
[2023-06-03] MEDS ORDERED: METOPROLOL TARTRATE 25 MG TAB PO STA ×2 (16:22→18:50)
[2023-06-03] MEDS ORDERED: SODIUM CHLORIDE 0.9% 1000ML 1,000 ML IV ONE (19:23)
[2023-06-03] MEDS ORDERED: dilTIAZem HCl 5 MG/ML 5 ML VIAL IV STA (19:24)
[2023-06-03] MEDS ORDERED: FAMOTIDINE 40 MG TABLET PO SCH (20:00)
[2023-06-03] MEDS: DOXYCYCLINE HYCLATE 100 MG CAP PO SCH (20:37)
[2023-06-03] MEDS: APIXABAN 5 MG TABLET PO SCH (20:37)
[2023-06-03] MEDS: METOPROLOL TARTRATE 25 MG TAB PO SCH (20:37)
[2023-06-04 06:41] LABS: Hematocrit (blood only) 40.6 % (42.0-52.0); Hemoglobin 13.9 g/dl (14.0-18.0); Mean Corpuscular Hemoglobin 31.4 pg (25.0-34.0); Mean Corpuscular Hgb Conc 34.2 g/dL (32.0-36.0); Mean Corpuscular Volume 91.9 fL (80.0-100.0); Mean Platelet Volume 12.2 fL (9.4-12.4); Platelet Count 112 K/uL (130-400); RDW Coefficient of Variation 14.4 % (11.5-14.5); RDW Standard Deviation 49.1 fL (36.4-46.3); Red Blood Count 4.42 M/uL (4.70-6.10); White Blood Count 7.07 K/ul (4.8-10.8)
[2023-06-04 06:57] LABS: BUN Creatinine Ratio 16.2 (10-20); Calcium 8.3 mg/dl (8.6-10.3); Creatinine Clr Calc Pharmacy 69.8 ml/min; Est GFR (African American) 73.3 ml/min; Est GFR (Non-African American) 63.2 ml/min; Magnesium 2.1 mg/dl (1.7-2.4); Phosphorus 3.2 mg/dl (2.5-4.9); Potassium 4.8 mmol/L (3.5-5.1)
--- NOTE | 2023-06-04 07:54 | Cardiology Progress Note ---
Date of Service June 04, 2023 Assessment & Plan Admission and Anticipated Discharge Date Admission Date: June 03, 2023 Supervising Physician Co-Signing Physician Notes Attending Staff: Pt seen and evaluated with [facility] staff. Concur with observations and plans. 67 yo man presenting with fevers, joint pains and fatigue - Dx: Acute Lyme Disease Cardiac Dx: Atrial flutter * Pt noted to be tachycardic * EKG appears to be consistent with atrial flutter * Pt with hx of PE * By report, also develop Chronic Thromboembolic Pulmonary Hypertension * Patient was evaluated in [place] - no PTE surgery * Pt is not on pulmonary vasodilators. * On chronic systemic anticoagulation. * Joint pains, NELSON, fatigue - Dx with acute Lyme disease * No ABX prior to the presentation for Lyme * No reported rash * No chest pain * No reported palpitations * No LE edema * No PND * No Orthopnea ECHOcardiogram: 06/03/2023 LVEF 55-60% RV moderately Dilated RV systolic function - severely reduced Mild TR PASP 48 mmHG Plans for: * Treatment of Lyme * ECHOcardiogram - results reviewed; LVEF 55-60%; RV dilated and dysfunctional * RV challenges can lead to RA dilation and drive aflutter * Continue systemic anticoagulation with Eliquis 5 mg po BID * Patient coverted to NSR overnight * STOP Lopressor 25 mg po TID * Start Toprol XL 75 mg po per day * Patient does not appear to be markedly volume overloaded * Continue Lasix 20 mg po M,W,F * K+ goal 4.5-5 * Mag ++ goal >2 * SBP 122 mmHg * Continue Lisinopril @ slightly lower dose of 10 mg po per day (may need the BP for escalating Beta Blockers) * TSH - 3.5 * Plans for EP Outpt consultation -Dr Cornejo - may need to be considered for ablation * Given degree of RV dilation and dysfunction- would consider Right Heart Cath - may be a candidate for Riociguat * Pt should follow up with Dr Rice @ [facility]; I am happy to see him for Pulm HTN @ [facility] Scott Rodriguez Subjective Events Overnight: * Converted to NSR Subjective: * No complaints * No chest pain Review of Systems Review of Systems: All systems reviewed & are unremarkable except as noted in HPI & below Physical Exam Physical Exam: Overweight JVP 12 cm H20 S1S2 Soft 2/6 systolic murmur CTA B No C/C/E Warm and perfusing Results & Data Vital Signs (Past 12 Hours) Vital Signs Temp Pulse Pulse Resp BP Pulse Ox O2 Del Method 06/04/23 03:19 36.4 C L 71 16 130/83 98 Room Air 06/03/23 23:14 36.8 C 67 18 104/70 97 Room Air 06/03/23 20:39 71 Laboratory Results Cardiac Enzymes 06/03/23 06/03/23 Range/Units 11:04 16:04 AST 34 (13-39) U/L Troponin I High Sens 11.9 10.8 (0-20) pg/ml Coagulation 06/03/23 Range/Units 11:04 PT 12.7 H (9.0-12.0) Seconds CBC 06/03/23 06/04/23 Range/Units 11:04 06:18 WBC 6.97 7.07 (4.8-10.8) K/ul RBC 4.95 4.42 L (4.70-6.10) M/uL Hgb 15.7 13.9 L (14.0-18.0) g/dl Hct 45.5 40.6 L (42.0-52.0) % Plt Count 113 L 112 L (130-400) K/uL Neut # (Auto) 2.97 (1.40-6.50) K/uL Lymph # (Auto) 2.27 (1.2-3.4) K/uL [place] # (Auto) 1.56 H (0.11-0.59) K/uL Eos # (Auto) 0.07 (0-0.50) K/uL Baso # (Auto) 0.06 (0-0.2) K/uL Comprehensive Metabolic Panel 06/03/23 06/04/23 Range/Units 11:04 06:18 Sodium 138 140 (136-145) mmol/L Potassium 4.2 4.8 (3.5-5.1) mmol/L Chloride 106 108 H (98-107) mmol/L Carbon Dioxide 25 27 (21-32) mmol/L BUN 18 19 (6-23) mg/dl Creatinine 1.11 1.17 (0.6-1.4) mg/dl Glucose 91 90 (70-99(Fasting)) mg/dl Calcium 9.2 8.3 L (8.6-10.3) mg/dl AST 34 (13-39) U/L ALT 44 (7-52) U/L Alkaline Phosphatase 91 (34-104) U/L Total Protein 7.7 (6.0-8.3) gm/dl Albumin 3.8 (3.4-5.0) gm/dl Intake and Output 06/03/23 06/04/23 06/04/23 22:59 06:59 14:59 Intake Total 200 / 1276 576 / 1276 372 / 372 Balance 200 / 1276 576 / 1276 372 / 372 Intake: IV 576 / 1076 372 / 372 Sodium Chloride 0.9% 1000ML 1, 576 / 576 372 / 372 000 ml @ 80 mls/hr IV .[id number] ONE Rx#:[id number] Oral 200 / 200 Other: # Unmeasured Voids 1 Weight 101.1 kg Weight Measurement Method Built in Bedscale Medications Administered Current Inpatient Medications Acetaminophen (Acetaminophen 325 Mg Tab) 650 mg PO Q4H PRN PRN Reason: Moderate Pain (Scale 4, 5, 6) Stop: 07/03/23 15:42 Last Admin: 06/04/23 03:34 Dose: 650 mg Apixaban (Apixaban 5 Mg Tablet) 5 mg PO BID [facility] Stop: 07/03/23 20:59 Last Admin: 06/04/23 08:19 Dose: 5 mg Doxycycline Hyclate (Doxycycline Hyclate 100 Mg Cap) 100 mg PO BID [facility] Stop: 06/13/23 20:59 Last Admin: 06/04/23 08:19 Dose: 100 mg Famotidine (Famotidine 40 Mg Tablet) 40 mg PO DAILY@1999 [facility] Stop: 07/03/23 19:59 Last Admin: 06/03/23 20:35 Dose: 40 mg Furosemide (Furosemide 20 Mg Tab) 20 mg PO MoWeFr@09 [facility] Stop: 07/03/23 08:59 Last Admin: 06/03/23 17:25 Dose: 20 mg Lisinopril (Lisinopril 10 Mg Tab) 10 mg PO QAM [facility] Stop: 07/04/23 08:59 Last Admin: 06/04/23 08:19 Dose: 10 mg Metoprolol Tartrate (Metoprolol Tartrate 25 Mg Tab) 25 mg PO TID [facility] Stop: 07/03/23 20:59 Last Admin: 06/04/23 08:20 Dose: 25 mg Metoprolol Tartrate (Metoprolol Tartrate 1 Mg/Ml Vial) 5 mg IV Q4 PRN PRN Reason: tachycardia Stop: 07/03/23 19:59 Pantoprazole Sodium (Pantoprazole 40 Mg Tab) 20 mg PO DAILY [facility] Stop: 07/04/23 08:59 Last Admin: 06/04/23 08:20 Dose: 20 mg
[2023-06-04] MEDS: DOXYCYCLINE HYCLATE 100 MG CAP PO SCH (08:19)
[2023-06-04] MEDS: APIXABAN 5 MG TABLET PO SCH (08:19)
[2023-06-04] MEDS: METOPROLOL TARTRATE 25 MG TAB PO SCH (08:20)
[2023-06-04] MEDS ORDERED: PANTOprazole 40 MG TAB PO SCH (09:00)
[2023-06-04] MEDS ORDERED: lisinopril 10 MG TAB PO SCH (09:00)
[2023-06-04] MEDS ORDERED: allopurinoL 300 MG TAB PO SCH (09:00)
[2023-06-04] MEDS ORDERED: METOPROLOL SUCC 50MG EXT REL TAB PO STA (12:23)
--- NOTE | 2023-06-04 12:43 | Discharge Summary ---
Date of Service June 04, 2023 Admission HPI Per Admitting Provider This is a 67-year-old male with PMHx of a flutter, HTN, GERD, gout, pulmonary hypertension, PE/DVT in December 2019 anticoagulated on Eliquis. Intermittent symptoms started over 2 weeks ago with chest tightness but no chest pain or palpitations, and felt headache with throbbing and his eyes hurt which lasted about 4 hours. It went away overnight. He also noticed worsening body aches and pains at that time. About 1 week after the first event, he felt the same symptoms and lasted again about 4 hours and went away overnight and was fine when he woke up. Pt admits to having intermittent chills, headache, muscle tightness and joint pain specifically in his elbows and knees. He has has chronic R hip pain chronically. He has been taking his medications accurately. Pt presents this morning as his pulse oximeter this morning read HR in the 140s. He is currently sitting comfortable in bed without acute complaints. Admission Exam Per Admitting Provider General: awake, alert, no apparent distress, physically fit appearing male Head: Normocephalic, atraumatic ENT: PERRL, EOMI, no pharyngeal exudate, mucous membranes moist Chest: Clear to auscultation, on room air, no adventitious breath sounds Cardiac: Sinus tachy with HR in 140s at bedside, no murmur, no JVD, normal peripheral pulses, good capillary refill Abdominal: NABS x 4 quadrants, soft, nondistended, nontender to palpation, no rebound or guarding Extremities: Normal inspection, no peripheral edema or erythema, calfs nontender to palpation Psych: Normal mood and affect Neuro: AAO x 3, strength intact bilaterally and rated 5/5, no motor deficits, speech is clear, no peripheral sensory deficits Principal Diagnosis Atrial flutter with RVR Hypertension Lyme disease Discharge Exam GENERAL: Alert and oriented x3. NAD, on RA. HEENT: No pallor, no icterus. Pupils equal, round and reactive to light. Oral mucosa moist. NECK: No JVD, no neck masses. HEART: S1 and S2 heard. irregular rate and rhythm. No murmur, no gallop. RESPIRATORY SYSTEM: Normal AP diameter. No accessory muscle use. No wheezing, no crackles. ABDOMEN: Soft, bowel sounds present, nontender, no distention. CENTRAL NERVOUS SYSTEM: No facial droop. Speech is clear. Obeys simple comman ds. Moves extremities. EXTREMITIES: No edema, no erythema seen. Discharge Data Allergies Allergy/AdvReac Type Severity Reaction Status Date / Time naproxen Allergy Severe Anaphylaxis Verified 06/03/23 12:05 Consultations 06/03/23 14:18 ED Decision to Admit Stat 06/03/23 15:43 Consult Cardiology Routine Hospital Course (1) Atrial flutter: - Acute, new onset - EKG reviewed showing such, likely has been ongoing intermittently over the past 2 weeks with patient's symptoms -Cardiology consulted, follows routinely with Dr. Rice as an outpatient -Echo reviewed, will need follow-up with Dr. Rodriguez for pulmonary hypertension, will need follow-up with cardiology and EP upon discharge. Patient is a started on Toprol-XL 75 Mg daily Patient to continue his Eliquis which he takes for his history of blood clot Patient with no chest pain, hemodynamically stable, would like to go home. Patient will benefit from sleep study as an outpatient, patient to coordinate with PCP office to set up the test. (2) HTN (hypertension): -Chronic, stable -Continue medications with lisinopril, 20 mg daily furosemide 20 mg 3 times per week on hold currently does not appear to be volume overloaded --> lisinopril dose has been decreased to 10 mg daily. (3) Dyslipidemia: -Chronic, stable -Diet controlled, not on statin therapy (4) Pulmonary HTN: - Chronic, Stable - Pt has not been tested for sleep apnea, may benefit from such as an outpatient and possibly needs CPAP - BMI of 32.9 but appears fairly muscular in calf muscles, thick neck habitus may attribute to possibility of increased risk for sleep apnea. (5) History of pulmonary embolism: - Occurred in December 2019 with DVT/PE -Chronically anticoagulated since then on Eliquis (6) Acute Lyme disease: -Lyme's testing positive, started on doxycycline, patient was counseled at bedside regarding adverse effects of doxycycline, administration, wearing sunscreen, light sensitivity, possible GI adverse effects and utilizing a probiotic or eating a yogurt with probiotics in the middle of the day. Patient expressed understanding and all his questions and concerns were addressed DVT PPx: Eliquis CODE: Full code By CMS guidelines, a determination that the admission or continued stay is not medically necessary has been made by a member of the Utilization Review committee and a physician for this hospital stay. Therefore, a Code 44 will be completed and the inpatient admission will be changed to outpatient. Plan Patient being discharged to home with following instruction at the point of discharge: Follow-up with your primary care physician within a week time and likely you will need labs CBC/CMP/magnesium/phosphorus. Follow-up with your cardiology in a month time, you might be considered for right heart cath. You might be referred for EP doctor evaluation. Follow-up with Dr. Rodriguez at [facility] for your pulmonary hypertension in 2 to 4 weeks time. You might benefit from outpatient sleep study, coordinate with your PCP office to set up the test. You are started on metoprolol succinate 75 mg daily. Because you tested positive for Lyme, you will be discharged on doxycycline for 14-day course. Take it with adequate water, stay upright for half an hour after taking doxycycline, wear sunscreen when going out in the sun, incorporate yogurt with probiotic in your daily diet. Take your medications as prescribed. Please make sure that you are able to get your medications today by calling your pharmacy before you leave the hospital so that your treatment continuity is not broken. Home Health Attestation I certify that this patient is under my care and that I, or a physicians assistant store manager working with me, had a face to-face encounter that meets the home health [id number] encounter requirements with this patient. The encounter with the patient was in whole, or in part, for the following medical condition, which is the primary reason for home health care (list medical condition): I certify that, based on my findings, the following services are medically necessary home health services: My clinical findings support the need for the above services because: Further, I certify that my clinical findings support that this patient is homebound (i.e. absences from home require considerable and taxing effort and are for medical reasons or tenriism services or infrequently or of short duration when for other reasons) because: Certification for Home Health Services: Based on the above findings, I certify that this patient is confined to the home and needs intermittent care home care, physical therapy and/or speech therapy or continues to need occupational therapy. The patient is under my care, and I have initiated the establishment of the plan of care. This patient will be followed by a physician who will periodically review the plan of care. Total Time Total Time Spent Total Time Spent (In Minutes): 45 Discharge Plan Discharge Items Patient Disposition: Home - Self-Care Reason For Visit: AFLUTTER Discharge Diagnosis: Atrial flutter with RVR Hypertension Lyme disease Activity: Resume your previous activity Non-emergency contact: Primary Care Provider Call non-emergency contact if: you have any medication questions, your symptoms worsen and your temperature is above 101 Follow-up/Referrals: Godwin Salas MD [Primary Care Provider] - Diet: Heart Healthy and Low Sodium (2gm) Addtl Attending Provider Instructions: Follow-up with your primary care physician within a week time and likely you will need labs CBC/CMP/magnesium/phosphorus. Follow-up with your cardiology in a month time, you might be considered for right heart cath. You might be referred for EP doctor evaluation. Follow-up with Dr. Rodriguez at [facility] for your pulmonary hypertension in 2 to 4 weeks time. You might benefit from outpatient sleep study, coordinate with your PCP office to set up the test. You are started on metoprolol succinate 75 mg daily. Because you tested positive for Lyme, you will be discharged on doxycycline for 14-day course. Take it with adequate water, stay upright for half an hour after taking doxycycline, wear sunscreen when going out in the sun, incorporate yogurt with probiotic in your daily diet. Take your medications as prescribed. Please make sure that you are able to get your medications today by calling your pharmacy before you leave the hospital so that your treatment continuity is not broken. Pending Studies at Discharge: Yes Stand-Alone Forms: [facility] [employer], Smoking Cessation Medications and DC Order Prescriptions: New doxycycline hyclate 100 mg Capsule 100 mg PO BID 14 Days Qty: 28 0RF lisinopril 10 mg Tablet 10 mg PO QAM Qty: 30 0RF metoprolol succinate 25 mg Tablet Extended Release 24 Hr 75 mg PO QAM Qty: 90 0RF Continued pantoprazole 40 mg tablet,delayed release (DR/EC) 20 mg PO DAILY Eliquis 5 mg Tablet 5 mg PO BID Qty: 0 0RF meloxicam 15 mg tablet 15 mg PO DAILY PRN (Reason: Pain) famotidine 40 mg tablet 40 mg PO PM Rx Instructions: 8:00PM allopurinol 300 mg tablet 300 mg PO QAM furosemide 20 mg tablet 20 mg PO [id number] Rx Instructions: Saturday, Saturday and Saturday colchicine (gout) 0.6 mg tablet 0.6 - 1.2 mg PO DAILY PRN (Reason: GOUT ATTACK) Discontinued lisinopril 20 mg tablet 20 mg PO QAM Discharge Orders: Discharge Order (Routine); Ordered 06/04/23 Ordered By: Torey Leyva Admission Data Admit Date/Time: 06/03/23 14:37 Attending Provider: Torey Leyva Admit Provider: Mat Ruvalcaba Primary Care Provider: Godwin Salas Other Providers: Mat Ruvalcaba
--- NOTE | 2023-06-04 12:57 | Communication Note ---
Date of Service: June 04, 2023 By CMS guidelines, a determination that the admission or continued stay is not medically necessary has been made by a member of the Utilization Review com aaron and a physician for this hospital stay. Therefore, a Code 44 will be completed and the inpatient admission will be changed to outpatient. DO ARABELLA Martin physician member
--- NOTE | 2023-06-04 15:54 | Electrocardiogram Report ---
Test Reason : Blood Pressure : / mmHG Vent. Rate : 116 BPM Atrial Rate : 000 BPM P-R Int : 000 ms QRS Dur : 116 ms QT Int : 340 ms P-R-T Axes : 000 -89 010 degrees QTc Int : 472 ms Atrial fibrillation with rapid ventricular response RSR' or QR pattern in V1 suggests right ventricular conduction delay Left anterior fascicular block Cannot rule out Anterior infarct , age undetermined Abnormal ECG When compared with ECG of 03-MAY-2022 11:18, Atrial fibrillation has replaced Sinus rhythm Vent. rate has increased BY 61 BPM Confirmed by Luan Hagan ([id number]) on 06/04/2023 3:54:39 PM Referred By: REFERRED SELF Confirmed By:Luan Hagan
--- NOTE | 2023-06-04 16:03 | Electrocardiogram Report ---
Test Reason : Blood Pressure : / mmHG Vent. Rate : 078 BPM Atrial Rate : 078 BPM P-R Int : 170 ms QRS Dur : 128 ms QT Int : 412 ms P-R-T Axes : 053 -40 -70 degrees QTc Int : 469 ms Sinus rhythm with occasional Premature ventricular complexes Left axis deviation Right bundle branch block Septal infarct , age undetermined T wave abnormality, consider inferolateral ischemia Abnormal ECG When compared with ECG of 03-JUN-2023 13:09, Significant changes have occurred Confirmed by Luan Hagan ([id number]) on 06/04/2023 4:03:20 PM Referred By: REFERRED SELF Confirmed By:Luan Hagan
[2023-06-05] MEDS ORDERED: METOPROLOL SUCC 25MG EXT REL TAB PO SCH (09:00)
[2023-06-05 13:27] LABS: 18KDIGG Band REACTIVE; 23KDIGG Band REACTIVE; 23KDIGM Band REACTIVE; 28KDIGG Band REACTIVE; 30KDIGG Band REACTIVE; 39KDIGG Band REACTIVE; 39KDIGM Band REACTIVE; 41KDIGG Band REACTIVE; 41KDIGM Band REACTIVE; 45KDIGG Band NON-REACTIVE; 58KDIGG Band REACTIVE; 66KDIGG Band REACTIVE; 93KDIGG Band REACTIVE; Lyme Antibodies, WB IgG POSITIVE (NEGATIVE); Lyme Antibodies, WB IgM POSITIVE (NEGATIVE)
== END 2023-06-04 14:05 | disposition home or self-care (01) ==
LOC: ED 10:26 → INTOOBSV 14:37 → SUATTDRO 14:37 → 2E 14:37

== ENCOUNTER 2024-12-21 09:56 | Inpatient (IN) ==
--- NOTE | 2024-12-21 10:51 | XRay Report ---
XR chest 1V portable CLINICAL HISTORY: sob COMPARISON STUDY: 06/03/2023 FINDINGS: Heart size and pulmonary vasculature are normal. No effusion or consolidation. No pneumotho rax. IMPRESSION: No pneumonia seen. ACT 112: Negative or not required by law. Electronically signed by: Tru Pollack M.D. 12/21/2024 10:50 AM
[2024-12-21 10:57] LABS: Basophils # (auto) 0.07 K/uL (0.00-0.20); Basophils % (auto) 0.9 %; Eosinophils # (auto) 0.15 K/uL (0.00-0.50); Eosinophils % (auto) 1.9 %; Hematocrit (blood only) 51.4 % (42.0-52.0); Hemoglobin 17.4 g/dl (14.0-18.0); Immature Granulocytes # (auto) 0.06 K/uL (0.01-0.20); Immature Granulocytes % (auto) 0.8 %; Lymphocytes # (auto) 2.11 K/uL (1.20-3.40); Lymphocytes % (auto) 27.2 %; Mean Corpuscular Hemoglobin 32.6 pg (25.0-34.0); Mean Corpuscular Hgb Conc 33.9 g/dL (32.0-36.0); Mean Corpuscular Volume 96.3 fL (80.0-100.0); Mean Platelet Volume 11.9 fL (9.4-12.4); Monocytes # (auto) 1.06 K/uL (0.11-0.59); Monocytes % (auto) 13.6 %; Neutrophils # (auto) 4.32 K/uL (1.40-6.50); Neutrophils % (auto) 55.6 %; Platelet Count 182 K/uL (130-400); RDW Coefficient of Variation 13.6 % (11.5-14.5); RDW Standard Deviation 48.3 fL (36.4-46.3); Red Blood Count 5.34 M/uL (4.70-6.10); White Blood Count 7.77 K/ul (4.8-10.8)
[2024-12-21 11:16] LABS: Prothrombin Time 11.3 Seconds (9.0-12.0)
[2024-12-21 11:17] LABS: Albumin Globulin Ratio 1.3 (0.9-2); Albumin Level 4.2 gm/dl (3.4-5.0); BUN Creatinine Ratio 16.9 (10-20); Bilirubin,Total 0.5 mg/dl (0.2-1.0); Calcium 9.7 mg/dl (8.6-10.3); Creatinine Clr Calc Pharmacy 68.6 ml/min; Globulin 3.2 gm/dl (2.5-4.0); Potassium 4.3 mmol/L (3.5-5.1); Total Protein 7.4 gm/dl (6.0-8.3)
[2024-12-21 11:23] LABS: Troponin I High Sensitivity 4.6 pg/ml (0-20)
[2024-12-21 11:33] LABS: Thyroid Stimulating Hormone 2.477 uIu/ml (0.300-4.500)
[2024-12-21 11:40] LABS: Lyme Screen Rflx Confirmation Positive (Negative)
--- NOTE | 2024-12-21 11:45 | Emergency Department Note ---
Impression & Plan Atrial flutter with rapid ventricular response, VALDEZ (dyspnea on exertion) ED Provider Note ED Provider Note NAME: JAJA GARCIA AGE:69 SEX: Male : 1955 ARRIVES VIA: Private vehicle INFORMANT: Patient ED PROVIDER(s): Norma De Jesus DO CHIEF COMPLAINT: Tachycardia, shortness of breath HPI: This is a 69-year-old male presents emergency room due to concern for persistent tachycardia, shortness of breath with exertion, burning in the back, and mild nausea. Patient states he first noticed tachycardia on Saturday as he has a home pulse oximeter that he uses to check his heart rate frequently. Patient states he has a prior history of a rapid heart rate. He states he has undergone [address] Cornejo for atrial flutter. He states for a while he was on diltiazem however that has since been discontinued and he has been fine. He states that the atrial flutter started because of an acute Lyme infection. Patient also has a history of bilateral PE and still does take Eliquis. He denies any recent fevers, chills, or URI symptoms. He states he does follow with Dr. Rice of cardiology. No other recent change in medications, change in activity, or change in diet. PAST MEDICAL HISTORY:See Below PAST SURGICAL HISTORY:See Below FAMILY HISTORY:See Below SOCIAL HISTORY:See Below HOME MEDICATIONS:See Below ALLERGIES:See Below VITALS:See Below PHYSICAL EXAMINATION: GENERAL: alert, well appearing, well nourished, no distress, non-toxic EYE EXAM: normal conjunctiva, PERRL and EOM's grossly intact OROPHARYNX: no exudate, no erythema, lips, buccal mucosa, and tongue normal and mucous membranes are moist NECK: supple, no nuchal rigidity, no adenopathy, non-tender LUNGS: Clear to auscultation. Normal chest wall mechanics, no w/r/r HEART: no murmurs, S1 normal and S2 normal ABDOMEN: abdomen soft, non-tender, normo-active bowel sounds, no masses, no rebound or guarding. SKIN: no rashes, petechiae, orbruising UPPER EXTREMITIES: upper extremities are grossly normal. FROM, nml pulses b/l. LOWER EXTREMITIES: No pitting edema. FROM, nml pulses b/l. NEURO EXAM: Normal sensorium, cranial nerves II-XII grossly intact, normal speech, no facial droop,nogross weakness of arms, no gross weakness of legs. Gross sensation intact. No ataxia. Vital Signs: reviewed and remarkable Differential Diagnosis: Dysrhythmia, PVCs, PACs, electrolyte abnormality, thyroid storm, ACS, PE, dehydration, anxiety, medication ADR, occult infection, as well as others were considered MEDICAL DECISION MAKING: This is a 69 yo male who presents with concern for elevated HR and VALDEZ. He was noted to be tachycardic on arrival but other VS stable. Labs drawn and sent, IV established, EKG and CXR performed and interpreted at bedside, and patient placed on telemetry. After reviewing prior episode of a.flutter in 2022 and ablation and follow-up, I discussed restarting his diltiazem with cardiology who was in agreement. Patient monitored for several hours and had no improvement in HR. I discussed cardioversion with cardiology and with the patient and he was in agreement. Preparations made at bedside and then while placing further orders it was noted his IgM lyme was positive. Last Lyme episode was in 2022 and treated. This was discussed again with cardiology who came to the bedside to see the patient and would like to hold off on cardioversion at this time and add IV diltiazem. Rocephin added for lyme. Case discussed with the hospitalist team for additional evaluation and mgmt. Consultation(s): 1154: Discussed with Dr. Fowler, [facility] cardiology, regarding the patient. Agrees with reinitiating patient's Cardizem at this time and if patient does well can be followed up in the office as an outpatient. 1424: Discussed with Dr. Fowler again. Recommends offering cardioversion. This was discussed with the patient at bedside and he is in agreement. 1500: Dr. Fowler now seeing the patient at bedside. After finding of Lyme IgM positive again today which had previously caused a similar episode, he would like to hold off on cardioversion and treat the Lyme to see if he spontaneously converts. 1532: Discussed with Dr. Farrell, [facility] hospitalist team, for additional evaluation and management. ER Treatment Provided: See below Diagnostics Interpreted By Me: -ECG: Atrial flutter 108, leftward axis, right bundle branch block, nonspecific ST/T wave changes -Cardiac Monitoring: An order was placed for continuous cardiac monitoring. The monitor shows a rate of 108 with atrial flutter rhythm. -Laboratory studies: As stated above and show below. -Imaging studies: X-ray Chest: A single view study of the chest was reviewed and was negative for cardiomegaly, focal infiltrate, effusion, pulmonary edema, or wide mediastinum. Triage Nursing Note Reviewed Prior/Outside Records Reviewed - prior cardiology consultation in 2022 reviewed Critical Care: Critical care of 56 min performed to assess and manage high likelihood of life- threatening dysrhythmia, involving labs and imaging performed with assessment to evaluate tachycardia diagnosis with frequent reassessment. This time includes bedside time, treatment discussions with patient/family/consultants, documentation time and excludes procedure time. Past Med/Surg History Problem List (Updated 12/23/24 @ 09:40 by Norma De Jesus DO) VALDEZ (dyspnea on exertion) (Acute) Encounter for pre-operative examination Atrial fibrillation with RVR (Acute) Atrial flutter with rapid ventricular response (Acute) History of pulmonary embolism (Acute) Acute Lyme disease (Acute) Atrial flutter DVT prophylaxis Hypertensive urgency Pulmonary HTN (Acute) Chest pain (Acute) Barretts esophagus HTN (hypertension) Dyslipidemia Medical History History of DVT (deep vein thrombosis) Bilateral pulmonary embolism completed 6 months Eliquis therapy Left anterior fascicular block RBBB Surgical History History of cardiac cath 08/2017 - normal coronaries H/O inguinal hernia repair Family History Mother COPD (chronic obstructive pulmonary disease) Social History Smoking Status: Never smoker Tobacco Type: Cigarettes Second Hand Exposure: No; Do You Dip or Chew Tobacco: No; Hx Alcohol Use: Yes Alcohol type: beer Alcohol Intake Frequency Comment: 2 beers/day Hx Substance Use: No Preferred Language: Frisian Communication Ability: Effective 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: No Beliefs That Will Affect Care: None Current Living Situation: Spouse Feels Safe at Home: Yes Safety Concerns: Feels Safe At This Time Assistive Devices: None Allergies Allergies Allergy/AdvReac Type Severity Reaction Status Date / Time naproxen Allergy Severe Anaphylaxis Verified 09/18/23 07:38 metoprolol AdvReac Mild panic Unverified 12/21/24 14:35 attack Home Meds Home Medications Medication Instructions Recorded Confirmed pantoprazole 40 mg tablet,delayed 40 mg PO QAM 01/13/20 12/21/24 release allopurinol 300 mg tablet 300 mg PO QAM 06/03/23 12/21/24 colchicine 0.6 mg tablet 0.6 - 1.2 mg PO DAILY PRN GOUT 06/03/23 12/21/24 ATTACK famotidine 40 mg tablet 40 mg PO PM 06/03/23 12/21/24 furosemide 20 mg tablet 20 mg PO DAILY 06/03/23 12/21/24 meloxicam 15 mg tablet 15 mg PO DAILY PRN Pain 06/03/23 12/21/24 Previous Rx's Medication Instructions Recorded apixaban 5 mg tablet (Eliquis) 5 mg PO BID #0 tabs 10/13/20 lisinopril 10 mg tablet 10 mg PO QAM #30 tabs 06/04/23 diltiazem HCl 120 mg capsule,24 120 mg PO DAILY #30 caps 12/23/24 hr,extended release doxycycline hyclate 100 mg tablet 100 mg PO BID 12 days #24 tabs 12/23/24 Results & Data (ED) Vital Signs Vital Signs - 24 hr 12/21/24 10:10 12/21/24 10:38 12/21/24 10:45 Temperature 36.3 C L Temperature Source Temporal Artery Scan Pulse Rate 108 H 109 H 107 H Pulse Rate from SpO2 Sensor 108 H Respiratory Rate 18 22 Respiratory Effort / Characteristics Non-Labored Spontaneous SOB on Exertion Respiratory Depth Normal Blood Pressure 116/81 Blood Pressure [Right Arm] Blood Pressure Mean 92 Blood Pressure Mean [Right Arm] Pulse Oximetry 97 95 Oxygen Delivery Method Room Air Room Air Sepsis Recent Fever Within 48 Hours No Sepsis New/Unexplained Change in Mental Status No Sepsis Action Taken by Nursing No Action Required 12/21/24 11:06 12/21/24 12:03 12/21/24 12:14 Temperature Temperature Source Pulse Rate 107 H 101 H Pulse Rate from SpO2 Sensor 108 H 101 H Respiratory Rate 13 13 Respiratory Effort / Characteristics Respiratory Depth Blood Pressure 141/98 H Blood Pressure [Right Arm] Blood Pressure Mean 123 Blood Pressure Mean [Right Arm] Pulse Oximetry 95 98 Oxygen Delivery Method Room Air Room Air Sepsis Recent Fever Within 48 Hours Sepsis New/Unexplained Change in Mental Status Sepsis Action Taken by Nursing 12/21/24 12:24 12/21/24 12:25 12/21/24 12:30 Temperature Temperature Source Pulse Rate 101 H Pulse Rate from SpO2 Sensor 92 H Respiratory Rate 19 Respiratory Effort / Characteristics Respiratory Depth Blood Pressure 126/99 Blood Pressure [Right Arm] 141/98 H Blood Pressure Mean 114 Blood Pressure Mean [Right Arm] 112 Pulse Oximetry 96 Oxygen Delivery Method Room Air Sepsis Recent Fever Within 48 Hours Sepsis New/Unexplained Change in Mental Status Sepsis Action Taken by Nursing 12/21/24 12:33 12/21/24 12:54 12/21/24 13:00 Temperature Temperature Source Pulse Rate 98 H 106 H Pulse Rate from SpO2 Sensor 104 H 105 H Respiratory Rate 20 14 Respiratory Effort / Characteristics Respiratory Depth Blood Pressure 131/97 Blood Pressure [Right Arm] Blood Pressure Mean 115 Blood Pressure Mean [Right Arm] Pulse Oximetry 95 95 Oxygen Delivery Method Room Air Room Air Sepsis Recent Fever Within 48 Hours Sepsis New/Unexplained Change in Mental Status Sepsis Action Taken by Nursing 12/21/24 13:15 12/21/24 13:30 12/21/24 13:36 Temperature Temperature Source Pulse Rate 105 H 105 H Pulse Rate from SpO2 Sensor 105 H 105 H Respiratory Rate 21 14 Respiratory Effort / Characteristics Respiratory Depth Blood Pressure 127/96 Blood Pressure [Right Arm] Blood Pressure Mean 110 Blood Pressure Mean [Right Arm] Pulse Oximetry 96 94 Oxygen Delivery Method Room Air Room Air Sepsis Recent Fever Within 48 Hours Sepsis New/Unexplained Change in Mental Status Sepsis Action Taken by Nursing 12/21/24 14:00 12/21/24 14:03 12/21/24 14:25 Temperature Temperature Source Pulse Rate 104 H 103 H Pulse Rate from SpO2 Sensor 104 H Respiratory Rate 20 Respiratory Effort / Characteristics Respiratory Depth Blood Pressure 132/93 Blood Pressure [Right Arm] Blood Pressure Mean 99 Blood Pressure Mean [Right Arm] Pulse Oximetry 96 Oxygen Delivery Method Room Air Sepsis Recent Fever Within 48 Hours Sepsis New/Unexplained Change in Mental Status Sepsis Action Taken by Nursing Laboratory Data 12/23/24 07:45 12/23/24 07:45 Lab Results 12/21/24 12/21/24 Range/Units 10:22 12:01 WBC 7.77 (4.8-10.8) K/ul RBC 5.34 (4.70-6.10) M/uL Hgb 17.4 (14.0-18.0) g/dl Hct 51.4 (42.0-52.0) % MCV 96.3 (80.0-100.0) fL MCH 32.6 (25.0-34.0) pg MCHC 33.9 (32.0-36.0) g/dL RDW Std Deviation 48.3 H (36.4-46.3) fL RDW Coeff of Dirk 13.6 (11.5-14.5) % Plt Count 182 (130-400) K/uL MPV 11.9 (9.4-12.4) fL Immature Gran % (Auto) 0.8 % Neut % (Auto) 55.6 % Lymph % (Auto) 27.2 % Dawson % (Auto) 13.6 % Eos % (Auto) 1.9 % Baso % (Auto) 0.9 % Neut # (Auto) 4.32 (1.40-6.50) K/uL Lymph # (Auto) 2.11 (1.20-3.40) K/uL Dawson # (Auto) 1.06 H (0.11-0.59) K/uL Eos # (Auto) 0.15 (0.00-0.50) K/uL Baso # (Auto) 0.07 (0.00-0.20) K/uL Immature Gran # (Auto) 0.06 (0.01-0.20) K/uL PT 11.3 (9.0-12.0) Seconds INR 1.0 (0.9-1.1) Sodium 142 (136-145) mmol/L Potassium 4.3 (3.5-5.1) mmol/L Chloride 106 (98-107) mmol/L Carbon Dioxide 30 (21-32) mmol/L Anion Gap 6 (3-11) BUN 20 (6-23) mg/dl Creatinine 1.18 (0.6-1.4) mg/dl Est Cr Clr Drug Dosing 68.6 ml/min eGFR 65.97 BUN/Creatinine Ratio 16.9 (10-20) Glucose 64 L (70-99(Fasting)) mg/dl Calcium 9.7 (8.6-10.3) mg/dl Magnesium 2.0 (1.7-2.4) mg/dl Total Bilirubin 0.5 (0.2-1.0) mg/dl AST 28 (13-39) U/L ALT 28 (7-52) U/L Alkaline Phosphatase 77 (34-104) U/L Troponin I High Sens 4.6 (0-20) pg/ml B-Natriuretic Peptide 38 (0-100) pg/ml Total Protein 7.4 (6.0-8.3) gm/dl Albumin 4.2 (3.4-5.0) gm/dl Globulin 3.2 (2.5-4.0) gm/dl Albumin/Globulin Ratio 1.3 (0.9-2) TSH 2.477 (0.300-4.500) uIu/ml Urine Color Yellow Urine Appearance Clear (Clear) Urine pH 6.5 (4.5-7.5) Ur Specific [place] 1.011 (1.000-1.030) Urine Protein Negative (Negative) Urine Glucose (UA) Negative (Negative) Urine Ketones Negative (Negative) Urine Blood Negative (Negative) Urine Nitrite Negative (Negative) Urine Bilirubin Negative (Negative) Urine Urobilinogen Negative (Negative) Ur Leukocyte Esterase Negative (Negative) Lyme Disease Screen Positive H (Negative) Lyme Tier 2 IgG Confirm Positive H (Negative) Lyme Tier 2 IgM Confirm Positive H (Negative) Administered Medications Acetaminophen (Acetaminophen 325 Mg Tab) 650 mg PO Q4H PRN PRN Reason: Pain or Fever Stop: 01/20/25 16:40 Last Admin: 12/22/24 00:51 Dose: 650 mg Documented By: DREW Allopurinol (Allopurinol 300 Mg Tab) 300 mg PO QAM [facility] Stop: 01/21/25 08:59 Last Admin: 12/22/24 08:57 Dose: 300 mg Documented By: ANMOL Apixaban (Apixaban 5 Mg Tablet) 5 mg PO BID [facility] Stop: 01/20/25 20:59 Last Admin: 12/22/24 21:00 Dose: 5 mg Documented By: GT Admin: 12/22/24 08:57 Dose: 5 mg Documented By: Admin: 12/21/24 20:22 Dose: 5 mg Documented By: DREW Diltiazem HCl (Diltiazem Hcl 30 Mg Tab) 30 mg PO Q6H [facility] Stop: 01/20/25 17:59 Last Admin: 12/23/24 05:42 Dose: Not Given Documented By: GT Admin: 12/22/24 23:48 Dose: Not Given Documented By: GT Admin: 12/22/24 18:31 Dose: 30 mg Documented By: Admin: 12/22/24 13:19 Dose: 30 mg Documented By: Admin: 12/22/24 06:24 Dose: Not Given Documented By: Admin: 12/22/24 00:45 Dose: Not Given Documented By: Admin: 12/21/24 18:42 Dose: 30 mg Documented By: RAUL Famotidine (Famotidine 40 Mg Tablet) 40 mg PO DAILY@1999 [facility] Stop: 01/20/25 19:59 Last Admin: 12/22/24 19:49 Dose: 40 mg Documented By: GT Admin: 12/21/24 20:22 Dose: 40 mg Documented By: DREW Furosemide (Furosemide 20 Mg Tab) 20 mg PO DAILY NU Stop: 01/21/25 08:59 Last Admin: 12/22/24 08:57 Dose: 20 mg Documented By: ANMOL Diltiazem HCl 125 mg/ Dextrose 125 mls @ 5 mls/hr IV .Q24H NU; Protocol Stop: 01/20/25 15:14 Last Admin: 12/22/24 16:24 Dose: Not Given Documented By: Titration: 12/21/24 22:51 Dose: 0 mg/hr, 0 mls/hr Documented By: DREW Co-signed By: TAMY Admin: 12/21/24 15:38 Dose: 5 mg/hr, 5 mls/hr Documented By: QGV Co-signed By: TE Ceftriaxone Sodium (Rocephin) 2,000 mg in 50 mls @ 100 mls/hr IV Q24H NU Stop: 12/31/24 15:59 Last Infusion: 12/22/24 15:35 Dose: Infused Documented By: Admin: 12/22/24 14:58 Dose: 100 mls/hr Documented By: ANMOL Lisinopril (Lisinopril 10 Mg Tab) 10 mg PO QAM NU Stop: 01/21/25 08:59 Last Admin: 12/22/24 08:57 Dose: 10 mg Documented By: ANMOL Pantoprazole Sodium (Pantoprazole 40 Mg Tab) 40 mg PO QAM NU Stop: 01/21/25 08:59 Last Admin: 12/22/24 08:57 Dose: 40 mg Documented By: NMS Discontinued Medications Diltiazem HCl (Diltiazem Hcl 120 Mg Capcr) 120 mg PO NOW STA Stop: 12/21/24 11:56 Last Admin: 12/21/24 12:10 Dose: 120 mg Documented By: DANA Diltiazem HCl (Diltiazem Hcl 5 Mg/Ml 5 Ml Vial) 10 mg IV NOW STA Stop: 12/21/24 15:15 Last Admin: 12/21/24 15:26 Dose: 10 mg Documented By: NRB Co-signed By: MILENA Sodium Chloride (Nss) 1,000 mls @ 125 mls/hr IV .Q8H NU Stop: 12/22/24 11:59 Last Infusion: 12/21/24 18:34 Dose: Infused Documented By: Admin: 12/21/24 12:08 Dose: 125 mls/hr Documented By: DANA Famotidine (Pepcid 20mg Iv Push) 20 mg in 5 mls @ 2.5 mls/min IV NOW STA Stop: 12/21/24 14:39 Last Admin: 12/21/24 15:52 Dose: 2.5 mls/min Documented By: TE Pantoprazole Sodium (Protonix) 40 mg in 10 mls @ 5 mls/min IV NOW ONE Stop: 12/21/24 14:39 Last Admin: 12/21/24 15:52 Dose: 5 mls/min Documented By: TE Ceftriaxone Sodium (Rocephin) 2,000 mg in 50 mls @ 100 mls/hr IV NOW STA Stop: 12/21/24 15:23 Last Infusion: 12/21/24 17:08 Dose: Infused Documented By: Admin: 12/21/24 15:53 Dose: 100 mls/hr Documented By: TE Miscellaneous (Stat Iv Infusion Titration Per Protocol) 1 each N/A NOW STA Stop: 12/21/24 15:15 Last Admin: 12/21/24 16:43 Dose: Not Given Documented By: NRB Imaging Data Radiologist's Impression: Chest X-Ray 12/21/24 10:37 XR chest 1V portable CLINICAL HISTORY: sob COMPARISON STUDY: 06/03/2023 FINDINGS: Heart size and pulmonary vasculature are normal. No effusion or consolidation. No pneumothorax. IMPRESSION: No pneumonia seen. ACT 112: Negative or not required by law. Electronically signed by: Tru Pollack M.D. 12/21/2024 10:50 AM Discharge Plan Visit Data Chief Complaint: Tachycardia Stated Complaint: HIGH HEART RATE, SOB ED Provider: Norma De Jesus Discharge Problem: Atrial flutter with rapid ventricular response, VALDEZ (dyspnea on exertion) Patient Disposition: Admitted As Inpatient Discharge Instructions Interventions: ED Discharge Assessment Last Done: 12/21/24 16:42
[2024-12-21] MEDS: SODIUM CHLORIDE 0.9% 1,000 ML IV SCH (12:08)
[2024-12-21] MEDS: dilTIAZem HCL 120 MG CAPCR PO STA (12:10)
[2024-12-21 12:14] LABS: Lyme Ab IgG 2nd Tier Confirm Positive (Negative); Lyme Ab IgM 2nd Tier Confirm Positive (Negative)
[2024-12-21 12:22] LABS: Appearance Urine Clear (Clear); Bilirubin Urine Negative (Negative); Blood Urine Negative (Negative); Color Urine Yellow; Glucose Urine UA Negative (Negative); Ketones Urine Negative (Negative); Leukocyte Esterase Urine Negative (Negative); Nitrite Urine Negative (Negative); Protein Urine Negative (Negative); Specific Gravity Urine 1.011 (1.000-1.030); Urobilinogen Urine Negative (Negative); pH Urine 6.5 (4.5-7.5)
--- OUTSIDE RECORDS SUMMARY | 2024-12-21 13:24 | External Medical Summary | Summary of Care ---
Author Name Unknown Organization [facility] Address [address] [place] [address] Phone [phone] Care Team Providers Care Electoral Officer Name Role Phone Godwin Salas MD Primary Care Provider [phone] Encounter Details Date Type Department Care Team (Late st Contact Info) Description 11/12/2024 Population Health External Data Unspecified Department Allergies Active Allergy Reactions Criticality Noted Date Comments Beta Adrenergic Blockers Psych complications Medium 07/24/2023 Naproxen High 10/12/2020 Other reaction(s): Anaphylaxis Naproxen Sodium Edema face/lips/tongue High 06/30/20 14 documented as of this encounter (statuses as of 11/12/2024) Medications Colchicine 0.6 MG Oral Tablet take 2 tablets by mouth ONCE FOR 1 DOSE AT ONSET OF GOUT ATTACK AND 1 TABLET AN HOUR LATER Strength: 0.6 mg 90 Tablet 3 3 Active Famotidine 40 MG Oral Tablet (Pepcid) take 1 tablet by mouth once daily AT 8 PM 90 Tablet 2 4 Active Pantoprazole Sodium 40 MG Oral Tablet Delayed Release (Protonix)Indicatio ns:Gastroesophageal reflux disease with esophagitis without hemorrhage,Jacome' s esophagus determined by biopsy Take 1 Tablet by mouth in the morning. 90 Tablet 3 4 Active Allopurinol 300 MG Oral Tablet (Zyloprim)Indicatio ns:Gouty arthropathy Take 1 Tablet by mouth in the morning. 90 Tablet 1 4 Active Meloxicam 15 MG Oral Tablet (Mobic) Take 1 Tablet by mouth in the morning. 90 Tablet 1 4 Active Eliquis 5 MG Oral Tablet (Apixaban)Indicatio ns:Chronic thromboembolic disease (HCC) take 1 tablet by mouth every morning and BEFORE BEDTIME 180 Tablet 1 4 Active Furosemide 20 MG Oral Tablet (Lasix)Indications: Chronic right-sided heart failure (HCC),HTN, goal below 130/80 Take 1 Tablet by mouth in the morning. 90 Tablet 3 4 Active Lisinopril 20 MG Oral Tablet (Prinivil) take 1 tablet by mouth every morning 90 Tablet 1 4 Active documented as of this encounter (statuses as of 11/12/2024) Active Problems Problem Noted Date Diagnosed Date BERTRAM (obstructive sleep apnea) 02/04/2024 S/P ablation of atrial flutter 01/10/2024 Paroxysmal atrial flutter 06/06/2023 Chronic right-sided heart failure 06/18/2022 Hiatal hernia 05/15/2022 Gouty arthropathy 11/14/2021 Chronic thromboembolic disease 11/24/2020 Chronic diastolic CHF (congestive heart failure) 11/24/2020 Obesity, Class I, BMI 30.0-34.9 (see actual BMI) 11/24/2020 History of DVT (deep vein thrombosis) 10/04/2020 History of pulmonary embolism 10/04/2020 Pulmonary hypertension 07/19/2020 Gastroesophageal reflux dise ase with esophagitis without hemorrhage 06/10/2015 Organic erectile dysfunction 01/23/2012 HTN, goal below 130/80 01/23/2012 documented as of this encounter (statuses as of 11/12/2024) Resolved Problems Problem Noted Date Diagnosed Date Resolved Date At risk for obstructive sleep apnea 06/06/2023 02/04/2024 Multiple subsegmental pulmon bridger emboli without acute cor pulmonale 01/19/2020 10/04/2020 Acute deep vein thrombosis ( DVT) of right peroneal vein 01/19/2020 10/04/2020 Exertional chest pain 01/08/20202019 Incomplete RBBB 01/08/2020 03/07/2020 Severe obesity (BMI 35.0-39. 9) with comorbidity 05/04/2019 05/13/2019 Hyperuricemia 05/04/2019 11/14/2021 Acute idiopathic gout of foot 05/04/2019 01/08/2020 ED (erectile dysfunction) of non-organic origin 11/04/2018 01/20/2023 Dyslipidemia 11/12/2016 05/04/2019 Jacome's esophagus determined by biopsy 05/07/2016 04/04/2021 Abnormal finding on EKG 06/24/201510/21 Overview (06/24/2015): T wave inversion in lead III Food sticks on swallowing 06/10/2015 Situational anxiety 12/07/2013 01/08/20 CMC (carpometacarpal joint) sprains 12/10/2012 08/14/2013 Overview (12/10/2012): Sprain 1st CMC joint left hand. Hypertension goal BP (blood pressure) < 140/90 01/23/2012 05/04/2019 Dyslipidemia, goal LDL below 130 01/23/2012 11/12/2016 Urticaria due to drug allergy 01/23/2012 08/14/2013 Left anterior hemiblock 01/23/201210/21 Dyslipidemia 01/23/2012 10/04/2020 Left anterior hemiblock 01/23/201202/18 ANGIOEDEMA 05/21/2011 01/23/2012 Other specified urticaria 05/21/2011 Overview (05/21/2011): 03/10/11 - present HTN, goal to be determined 0 01/23/2012 Esophageal reflux 06/10/2015 documented as of this encounter (statuses as of 11/12/2024) Immunizations Name Administration Dates Next Due COVID-19 mRNA, LNP-s, No Pre serve, 2-Dose Series (Moderna) 07/20/2021,12/20/2020,11/16/2020 COVID-19, mRNA, LNP-s, PF, B ooster, 100mcg/0.5mg (Moderna) 03/05/2022,08/22/2021 Covid-19, Mrna, Lnp-s, Pf, B ivalent, 50 Mcg, IM, 12 yrs and above (Moderna) 08/02/2022 Pneumococcal Conjugate Vacc, 13 Valent (Prevnar) 03/02/2019 Pneumococcal Polysaccharide PPV23 (Pneumovax) 04/04/2021 Season Influenza, Quad, PF, Adjuvanted, 65+ Yrs, IM (FLUAD) 07/26/2022,07/01/2020 Seasonal Influenza Vac., MDV , IM, 0.5 mL (Fluzone) 07/18/2018,07/29/2017,06/24/2015,06/30,08/14/2013,07/29/2012,07/21/2011 Seasonal Influenza Virus Vac cine, Unspecified Formulation 08/07/2021,07/01/2020,10/02/2019,09/09,07/18/2018,07/29/2017,07/17/2016 ,06/24/2015,06/30/2014,08/14/2013,1006/2012,07/21/2011 Seasonal Influenza, High Dos e, Trivalent, PF, IM (Fluzone HD) 07/15/2024 Seasonal Influenza, PF, 6 M & above, IM , (FluLaval or Fluzone) 10/02/2019,09/09/2018 Seasonal Influenza, Quadriva lent Hd (Fluzone Hd) 07/24/2023,08/07/2021 Seasonal Influenza, Quadriva lent, No Preserve, IM 07/17/2016 Seasonal Influenza, Trivalen t, Adjuvanted, 65+ YRS, PF, (Fluad) 07/18/2018 TD - Tetanus/Diptheria (ADULT) 06/18/2015 TDAP, Age 7 and older, IM (Adacel) 01/23/2012 Varicella Zoster Vaccine (Adult) 08/14/2013 Zoster Vaccine Recombinant (Shingrix) 06/27/2021 ,04/08/2021 documented as of this encounter Social History Tobacco Use Types Packs/Day Years Used Date Smoking Tobacco: Former Cigarettes 1 20 0 05/21/1971 - 05/21/1991 Smokeless Tobacco: Never Comments:no passive smoke Alcohol Use Standard Drinks/Week Comments Yes 7 (1 standard drink = 0.6 oz pur e alcohol) 10 drinks/week PHQ-2 Answer Date Recorded PHQ Adult Total Score 0 04/04/2021 Hunger Vital Sign Answer Date Recorded Within the past 12 months, y ou worried that your food would run out before you got the money to buy more. Never true 07/24/20 23 Within the past 12 months, t he food you bought just didn't last and you didn't have money to get more. Never true 07/24/2023 Childcare Answer Date Recorded Do you feel overwhelmed with taking care of a child, family member or friend? No 07/24/2023 Does your family need help f inding childcare? (Household - for ages 0-17 years) Not on file 07/24/2023 Clothing Answer Date Recorded Have you been unable to get clothing when it was really needed? No 07/24/2023 Is your family able to get c lothes or diapers when needed? (Household - for ages 0-17 years) Not on file 07/24/2023 Personal Safety Answer Date Recorded Do you feel unsafe or have concerns for your saf ety? No 07/24/2023 Do you have concerns for you r family's safety? (Household - for ages 0-17 years) Not on file 07/24/2023 Utilities Answer Date Recorded Do you have trouble paying y our heating, water, or electric bill? (Adult - for ages 18 years and over) Not on file 07/24/2024 Is your family able to pay t he heat, water, or electric bill? (Household - for ages 0-17 years) Not on file 07/24/2024 Does your family have access to good internet? (Household - for ages 0-17 years) Not on file 07/24/2024 Employment Status Answer Date Recorded Are you unemployed or without regular income? No 07/24/2023 Does the household have a re lar source of income? (Household - for ages 0-17 years) Not on file 07/24/2023 Social Connections Answer Date Recorded How often do you feel lonely or isolated from those around you? (Adult - for ages 18 years and over) Not on file 07/24/2024 Financial Resource Strain Answer Date R ecorded Do you have any trouble payi ng for your medications, or do you think you might in the future? No 07/24/2023 Does your family have troubl e paying for medicine? (Household - for ages 0-17 years) Not on file 07/24/2023 Transportation Needs Answer Date Record ed READ ONLY Do you have troubl e getting a ride to medical visits or work? Never True 07/24/2023 Does your family have a hard time getting a ride to doctors visits? (Household - for ages 0-17 years) Not on file 07/24/2023 Has lack of transportation k ept you from medical appointments, meetings, work, or from getting things needed for daily living? Check all that apply. (Adult - for ages 18 years and over) Not on file 07/24/2023 Do you (or your family) have trouble finding or paying for a ride (transportation)? (Household - for ages 0-17 years) Not on file 07/24/2023 Housing Stability Answer Date Recorded Do you currently live in a s helter or have no steady place to sleep at night? No 07/24/2023 READ ONLY Do you think you a re at risk of becoming homeless? No 07/24/2023 Does your family worry about paying for your home or becoming homeless? (Household - for ages 0-17 years) Not on file 1 Are you homeless or worried that you might be in the future? (Adult - for ages 18 years and over) Not on file Are you (or your family) lila eless or worried that you might be in the future? (Household - for ages 0-17 years) Not on file Food Insecurity Answer Date Recorded Do you need food for this week? No 07/24/2023 Are you able to get enough f ood for your family? (Household - for ages 0-17 years) Not on file 07/24/2023 Does your family need food t his week? (Household - for ages 0-17 years) Not on file 07/24/2023 Do you always have enough fo od for your family? (Household - for ages 0-17 years) Not on file 07/24/2023 Sex and Gender Information Value Date Recorded Sex Assigned at Male 06/15/2020 11:04 AM EDT Legal Sex Male 6:53 AM EST Gender Identity Male 06/15/2020 11:04 AM EDT Sexual Orientation Straight 06/15/2020 11 :04 AM EDT documented as of this encounter Plan of Treatment Upcoming Encounters Date Type Department Care Team (Late st Contact Info) Description 05/18/2025 8:30 AM EDT Office Visit Cardiology, [facility] [address] [facility] [place] [address] Catarina Michelle PA-C [address] [facility] [place] [address] 07/20/2025 12:40 PM EDT Office Visit Pulmonary Medicine, [facility] [address] [facility] [place] [address] Sanket Donovan MD [address] [place] [address] 08/10/2025 11:00 AM EDT Office Visit Sleep Disorders Ctr [facility] [address] [facility] [place] [id number] Celine Pond DO [address] [place] [address] Scheduled Procedures Name Priority Associated Diagnoses Date/Ti me COLONOSCOPY FLEXIBLE PROXIMAL DIAGNOSTIC Recall History of colon polyps Health Maintenance Due Date Last Done Comments Hepatitis C Screening 1971 Cologuard 1998 Fecal Occult Blood Test 1998 Sigmoidoscopy 1998 AAA Screening 2018 Adult Wellness Visit 2019 Depression Screening 04/04/2022 04/04/2021 COVID-19 Vaccine ( season) 2024 10/07/2023, 08/02/2022, 03/05/2022, Additional history exists DTap/Tdap Vaccines (3 - Td or Tdap) 06/18/2025 06/18/2015, 01/23/2012 GFR 09/23/2025 09/23/2024, 08/21, 07/24/2024, Additional history exists Jacome's Esophagus Surveilance 10/02/2025 10/02/2022, 10/02/2022 Albumin/Creatinine Ratio 06/07/2026 06/07/2023 Colonoscopy 10/02/2027 10/02/2022, 09/20, 03/24/2019, Additional history exists Colorectal Cancer Screening 10/02/2027 Pneumococcal Vaccine: 50+ Years Completed 04/04/2021, 03/02/2019 Zoster Vaccines Completed 06/27/2021, 03/21, 08/14/2013 RETIRED - COLONOSCOPY-EVERY 5 YRS AGES 18-100 Discontinued 10/02/2022, 10/02/2022, 03/24/2019, Additional history exists Influenza Vaccine (FLU shot) Completed 07/15/2024, 07/24/2023, 07/26/2022, Additional history exists HPV (Gardasil) Vaccine Aged Out No lo nger eligible based on patient's age to complete this topic Hepatitis B Vaccine Aged Out No longe r eligible based on patient's age to complete this topic MENINGOCOCCAL (MENACTRA/MENVEO) Aged Out No longer eligible based on patient's age to complete this topic documented as of this encounter Medical Devices Implanted Type Area Evp And Chief Operating Officer Device Identifier Shelf Expiration Date Model / Serial / Lot 3d Light Right Medium Mesh Implanted:Qty: 1 on 07/18/2015 by Damaso Medina MD at OR [facility] Right: Groin CR BARD : DAVOL 09/17/2019 [id number] / / [id number] documented as of this encounter Advance Directives Healthcare Agents on File Name Relationship Healthcare Agent Relationship Communication Malinda Goddard Spouse Health Care Agen t (per Health Care Power of Java Performance Engineer document) Care Teams Electoral Officer Relationship Specialty Start Date End Date Godwin Salas MD [address] [place] [address] PCP - General Family Medicine 03/07/20 documented as of this encounter
--- OUTSIDE RECORDS SUMMARY | 2024-12-21 13:25 | External Medical Summary ---
Author Name Unknown Address Unknown Organization [id number]:[facility] [place] [place] - [facility] [address] [place] [address] Laboratory Report Ordering Provider Test Date Status LILIAN STANFORD 09/03/2024 14:21:44 Final Observation Date Value Abnormality Reference (Units ) Status BUN 09/03/2024 14:21:44 24 Above high normal 6-20 (mg/dL) Final Creatinine 09/03/2024 14:21:44 1.3 Above high normal 0.6-1.2 (mg/dL) Final Glomerular filtration rate/1.73 sq M.predicted [Volume Rate/Area] in Serum, Plasma or Blood by Creatinine-based formula (CKD-EPI) 09/03/2024 14:21:44 61 >=60 (mL/min) Final eGFR is calculated based on the CKD-EPI 2020 equation. Sodium 09/03/2024 14:21:44 139 135-146 (m mol/L) Final Potassium 09/03/2024 14:21:44 4.2 3.5-5.1 (m mol/L) Final Cl 09/03/2024 14:21:44 102 98-107 (mm ol/L) Final CO2 09/03/2024 14:21:44 24 22-32 (mmo l/L) Final Anion gap 09/03/2024 14:21:44 13 7-15 (mmol /L) Final Glucose 09/03/2024 14:21:44 93 70-120 (mg /dL) Final Calcium 09/03/2024 14:21:44 9.6 8.4-10.2 ( mg/dL) Final Performing Location [facility] - [address] [place] [address]
--- OUTSIDE RECORDS SUMMARY | 2024-12-21 13:25 | External Medical Summary ---
Author Name Unknown Address Unknown Organization [id number][place] [place] [address] [place] [address] Laboratory Report Ordering Provider Test Date Status LILIAN STANFORD 09/23/2024 09:21:39 Final Observation Date Value Abnormality Reference (Units ) Status BUN 09/23/2024 09:21:39 17 6-20 (mg/dL) Final Creatinine 09/23/2024 09:21:39 1.1 0.6-1.2 (mg/dL) Final Glomerular filtration rate/1.73 sq M.predicted [Volume Rate/Area] in Serum, Plasma or Blood by Creatinine-based formula (CKD-EPI) 09/23/2024 09:21:39 74 >=60 (mL/min) Final eGFR is calculated based on the CKD-EPI 2020 equation. Sodium 09/23/2024 09:21:39 140 135-146 (m mol/L) Final Potassium 09/23/2024 09:21:39 4.7 3.5-5.1 (m mol/L) Final Cl 09/23/2024 09:21:39 105 98-107 (mm ol/L) Final CO2 09/23/2024 09:21:39 22 22-32 (mmo l/L) Final Anion gap 09/23/2024 09:21:39 13 7-15 (mmol /L) Final Glucose 09/23/2024 09:21:39 107 70-120 (mg /dL) Final Calcium 09/23/2024 09:21:39 8.9 8.4-10.2 ( mg/dL) Final Performing Location [facility] [place] [address] [place] [address]
--- OUTSIDE RECORDS SUMMARY | 2024-12-21 13:25 | External Medical Summary | Summary of Care ---
Author Name Unknown Organization [facility] Address [address] [facility] [place] [address] Phone [phone] Care Team Providers Care Teachers' Aide Name Role Phone Godwin Salas MD Primary Care Provider [phone] Encounter Details Date Type Department Care Team (Late st Contact Info) Description 09/10/2024 Orders Only PATIENT PORTAL DO NOT DELETE THIS DEPT USED BY [place] [id number] Allergies Active Allergy Reactions Criticality Noted Date Comments Beta Adrenergic Blockers Psych complications Medium 07/24/2023 Naproxen High 10/12/2020 Other reaction(s): Anaphylaxis Naproxen Sodium Edema face/lips/tongue High 06/30/20 14 documented as of this encounter (statuses as of 09/10/2024) Medications Colchicine 0.6 MG Oral Tablet take 2 tablets by mouth ONCE FOR 1 DOSE AT ONSET OF GOUT ATTACK AND 1 TABLET AN HOUR LATER Strength: 0.6 mg 90 Tablet 3 3 Active Lisinopril 20 MG Oral Tablet (Prinivil) take 1 tablet by mouth every morning 90 Tablet 3 3 Active Famotidine 40 [...] the morning. 90 Tablet 3 4 Active documented as of this encounter (statuses as of 09/10/2024) Active Problems Problem Noted Date Diagnosed Date [...] as of this encounter (statuses as of 09/10/2024) Resolved Problems Problem Noted Date Diagnosed Date [...] as of this encounter (statuses as of 09/10/2024) Immunizations Name Administration Dates Next Due COVID-19 [...] 07/24/2023 Does the household have a re gular source of income? (Household - for ages [...] Care Team (Late st Contact Info) Description 01/25/2025 3:30 PM EDT Office Visit Cardiology, [facility] [address] [place] [address] Catarina Michelle, CHEL[place] [address] [place] [address] 07/20/2025 12:40 PM EDT Office Visit Pulmonary Medicine, [facility] [address] [facility] [place] [address] Sanket Donovan MD [address] [place] [address] 08/10/2025 11:00 AM EDT Office Visit [facility] Disorders Ctr [facility] [address] [facility] [place] [phone] Celine Pond DO [address] [facility] [place] [address] Scheduled Procedures Name Priority Associated Diagnoses Date/Ti [...] Td or Tdap) 06/18/2025 06/18/2015, 01/23/2012 GFR 09/03/2025 09/03/2024, 10/0 01/2024, 09/03/2023, Additional history exists Jacome's Esophagus Surveilance 10/02/2025 10/02/2022, 10/02/2022 Albumin/Creatinine Ratio 06/07/2026 06/07/2023 Colonoscopy 10/02/2027 10/02/2022, 09/20, 03/24/2019, Additional history exists Colorectal Cancer Screening 10/02/2027 Pneumococcal Vaccine: 65+ Years Completed 04/04/2021, 03/02/2019 Zoster Vaccines Completed [...] this encounter Medical Devices Implanted Type Area Stockroom Selector Device Identifier Shelf Expiration Date Model / Serial / Lot 3d Light Right Medium Mesh Implanted:Qty: 1 on 07/18/2015 by Damaso Medina MD at OR [facility] Right: Groin CR BARD : DAVOL 09/17/2019 [id number] / / [id number] documented as of this encounter Advance Directives Healthcare Agents on File Name Relationship Healthcare Agent Relationship Communication Malinda Goddard Spouse Health Care Agen t (per Health Care Power of Tow Motor Operator document) Care Teams Teachers' Aide Relationship Specialty Start Date End Date Godwin Salas MD [address] [place] [address] PCP - General Family Medicine 03/07/20 documented as of this encounter
--- OUTSIDE RECORDS SUMMARY | 2024-12-21 13:25 | External Medical Summary | Summary of Care ---
Author Name Unknown Organization [facility] Address [address] [place] [address] Phone [phone] Care Team Providers Care Maintenance Analyst Name Role Phone Godwin Salas MD Primary Care Provider [phone] Reason for Visit * Reason Comments Outpatient Testing Encounter Details Date Type Department Care Team (Late st Contact Info) Description 09/03/2024 2:30 PM EST [facility] [address] [facility] [place] [phone] [facility] [address] [facility] [place] [address] Encounter for monitoring diuretic therapy Allergies Active Allergy Reactions Criticality Noted Date Comments Beta Adrenergic Blockers Psych complications Medium 07/24/2023 Naproxen High 10/12/2020 Other reaction(s): Anaphylaxis Naproxen Sodium Edema face/lips/tongue High 06/30/20 14 documented as of this encounter (statuses as of 09/03/2024) Medications Colchicine 0.6 MG Oral Tablet take [...] as of this encounter (statuses as of 09/03/2024) Active Problems Problem Noted Date Diagnosed Date [...] as of this encounter (statuses as of 09/03/2024) Resolved Problems Problem Noted Date Diagnosed Date [...] on swallowing 06/10/2015 Situational anxiety 12/07/2013 01/08/20 20 CMC (carpometacarpal joint) sprains 12/10/2012 08/14/2013 Overview [...] as of this encounter (statuses as of 09/03/2024) Immunizations Name Administration Dates Next Due COVID-19 [...] Influenza Virus Vac cine, Unspecified Formulation 08/07/2021,07/01/2020,10/02/2019,09/09,07/18/2018,07/29/2017,07/17/2016 ,06/24/2015,06/30/2014,08/14/2013,06/2012,07/21/2011 Seasonal Influenza, High Dos e, Trivalent, PF, [...] 01/25/2025 3:30 PM EDT Office Visit Cardiology, [facility] [address] [facility] [place] [address] Catarina Michelle PA-C [address] [place] [address] 07/20/2025 12:40 PM EDT Office Visit Pulmonary Medicine, [facility] [address] [place] [address] Sanket Donovan MD [address] [place] [address] 08/10/2025 11:00 AM EDT Office Visit Sleep Disorders Ctr [facility] [address] [facility] [place] [phone] Celine Pond DO [address] [place] [address] Pending Results Name Type Priority Associated Diagnoses Date /Time BASIC METABOLIC PANEL Lab Routine Encounter for monitoring diuretic therapy 09/03/2024 2:21 PM EST Scheduled Procedures Name Priority Associated Diagnoses Date/Ti [...] Td or Tdap) 06/18/2025 06/18/2015, 01/23/2012 GFR 07/24/2025 07/24/2024, 08/21, 07/30/2023, Additional history exists Jacome's Esophagus Surveilance 10/02/2025 [...] this encounter Medical Devices Implanted Type Area Assistant Manager Bilingual Device Identifier Shelf Expiration Date Model / Serial / Lot 3d Light Right Medium Mesh Implanted:Qty: 1 on 07/18/2015 by Damaso Medina MD at OR [facility] Right: Groin CR BARD : DAVOL 09/17/2019 [id number] / / [id number] documented as of this encounter Visit Diagnoses Diagnosis Encounter for monitoring diuretic therapy Encounter for therapeutic drug monitoring documented in this encounter Advance Directives Healthcare Agents on File Name Relationship Healthcare Agent Relationship Communication Malinda Goddard Spouse Health Care Agen t (per Health Care Power of Secretary Of State document) Care Teams Maintenance Analyst Relationship Specialty Start Date End Date Godwin Salas MD [address] [place] [address] PCP - General Family Medicine 03/07/20 documented as of this encounter
--- OUTSIDE RECORDS SUMMARY | 2024-12-21 13:25 | External Medical Summary | Summary of Care ---
Author Name Unknown Organization [facility] Address [address] [place] [address] Phone [phone] Care Team Providers Care Flagman Name Role Phone Godwin Salas MD Primary Care Provider [phone] [phone] Reason for Visit * Reason Comments Outpatient Testing Encounter Details Date Type Department Care Team (Late st Contact Info) Description 09/23/2024 9:30 AM EST Laboratory Laboratory [facility] [address] [facility] [place] [phone] [facility] [address] [facility] [place] [address] Encounter for monitoring diuretic therapy Allergies Active Allergy Reactions Criticality Noted Date Comments Beta Adrenergic Blockers Psych complications Medium 07/24/2023 Naproxen High 10/12/2020 Other reaction(s): Anaphylaxis Naproxen Sodium Edema face/lips/tongue High 06/30/20 14 documented as of this encounter (statuses as of 09/23/2024) Medications Colchicine 0.6 MG Oral Tablet take [...] as of this encounter (statuses as of 09/23/2024) Active Problems Problem Noted Date Diagnosed Date [...] as of this encounter (statuses as of 09/23/2024) Resolved Problems Problem Noted Date Diagnosed Date [...] as of this encounter (statuses as of 09/23/2024) Immunizations Name Administration Dates Next Due COVID-19 [...] 01/25/2025 3:30 PM EDT Office Visit Cardiology, [facility] [address] [facility] [place] [address] Catarina Michelle PA-C [address] [place] [address] 07/20/2025 12:40 PM EDT Office Visit Pulmonary Medicine, [facility] [address] [place] [address] Sanket Donovan MD [address] [place] [address] 08/10/2025 11:00 AM EDT Office Visit Sleep Disorders Ctr [facility] [address] [facility] [place] [phone] Celine Pond DO [address] [place] [address] Pending Results Name Type Priority Associated Diagnoses Date /Time BASIC METABOLIC PANEL Lab Routine Encounter for monitoring diuretic therapy 09/23/2024 9:21 AM EST Scheduled Procedures Name Priority Associated Diagnoses [...] Tdap) 06/18/2025 06/18/2015, 01/23/2012 GFR 09/03/2025 09/03/2024, 01/2024, 09/03/2023, Additional history exists Jacome's Esophagus [...] this encounter Medical Devices Implanted Type Area Conciliation Court Judge Device Identifier Shelf Expiration Date Model / Serial / Lot 3d Light Right Medium Mesh Implanted:Qty: 1 on 07/18/2015 by Damaso Medina MD at OR [facility] Right: Groin CR BARD : DAVOL 09/17/2019 [id number] / / [id number] documented as of this encounter Visit Diagnoses Diagnosis Encounter for monitoring diuretic therapy Encounter for therapeutic drug monitoring documented in this encounter Advance Directives Healthcare Agents on File Name Relationship Healthcare Agent Relationship Communication Malinda Goddard Spouse Health Care Agen t (per Health Care Power of Gun Synchronizer document) Care Teams Flagman Relationship Specialty Start Date End Date Godwin Salas MD [address] [place] [address] PCP - General Family Medicine 03/07/20 documented as of this encounter
--- OUTSIDE RECORDS SUMMARY | 2024-12-21 13:25 | External Medical Summary | Summary of Care ---
Author Name Unknown Organization [facility] Address [address] [facility] [address] Phone [phone] Care Team Providers Care Electrical Project Manager Name Role Phone Godwin Salas MD Primary Care Provider [phone] [phone] Reason for Visit * Reason Onset Date Comments Test Results 09/10/2024 Overnight oxygen testing Encounter Details Date Type Department Care Team (Late st Contact Info) Description 09/10/2024 [facility] [address] [place] [address] Celine Pond, [address] [place] [address] Test Results (Overnight oxygen testing) Allergies Active Allergy Reactions Criticality Noted Date [...] AM EDT documented as of this encounter Miscellaneous Notes * Telephone Encounter - Jany Turcios LPN - 09/10/2024 2:38 PM EST MyG sent. * Telephone Encounter - Celine Pond DO - 09/10/2024 1:48 PM EST Please let the patient know that their overnight oximetry showed resolution of the previous Nocturnal Hypoxemia now with their PAP therapy. Overnight Oximetry 08/26/24 SpO2<= 89% 1 min 55 sec SpO2<= 88% 4 sec SpO2 nigel 88% documented in this encounter Plan of Treatment Upcoming Encounters Date Type Department Care Team (Late st Contact Info) Description 01/25/2025 3:30 PM EDT Office Visit Cardiology, [facility] [address] [place] [address] Catarina Michelle PA-C [address] [facility] [place] [address] 07/20/2025 12:40 PM EDT Office Visit Pulmonary Medicine, [facility] [address] [place] [address] Sanket Donovan MD [address] [place] [address] 08/10/2025 11:00 AM EDT Office Visit Sleep Disorders Ctr [facility] [address] [place] [phone] Celine Pond, DO [address] [place] [address] Scheduled Procedures Name Priority Associated Diagnoses Date/Ti [...] this encounter Medical Devices Implanted Type Area Automotive Service Technician Device Identifier Shelf Expiration Date Model / Serial / Lot 3d Light Right Medium Mesh Implanted:Qty: 1 on 07/18/2015 by Damaso Medina MD at OR [facility] Right: Groin CR BARD : DAVOL 09/17/2019 [id number] / / [id number] documented as of this encounter Advance Directives Healthcare Agents on File Name Relationship Healthcare Agent Relationship Communication Malinda Goddard Spouse Health Care Agen t (per Health Care Power of Automotive Service Writer document) Care Teams Electrical Project Manager Relationship Specialty Start Date End Date Godwin Salas MD [address] [place] [address] PCP - General Family Medicine 03/07/20 documented as of this encounter
--- OUTSIDE RECORDS SUMMARY | 2024-12-21 13:25 | External Medical Summary | Summary of Care ---
Author Name Unknown Organization [facility] Address [address] [place] [place] [place] [address] Phone [phone] Care Team Providers Care Toe Pounder Name Role Phone Godwin Salas MD Primary Care Provider [phone] [phone] Reason for Visit * Reason Onset Date Comments Test Results 09/07/2024 Encounter Details Date Type Department Care Team (Late st Contact Info) Description 09/07/2024 Telephone Cardiology, [facility] [address] [place] [address] Catarina Michelle PA-C [address] [place] [address] Test Results Allergies Active Allergy Reactions Criticality Noted Date Comments Beta Adrenergic Blockers Psych complications Medium 07/24/2023 Naproxen High 10/12/2020 Other reaction(s): Anaphylaxis Naproxen Sodium Edema face/lips/tongue High 06/30/20 14 documented as of this encounter (statuses as of 09/07/2024) Medications Colchicine 0.6 MG Oral Tablet take [...] as of this encounter (statuses as of 09/07/2024) Active Problems Problem Noted Date Diagnosed Date [...] as of this encounter (statuses as of 09/07/2024) Resolved Problems Problem Noted Date Diagnosed Date [...] as of this encounter (statuses as of 09/07/2024) Immunizations Name Administration Dates Next Due COVID-19 [...] encounter Miscellaneous Notes * Telephone Encounter - Jeffy Kelley LPN - 09/07/2024 4:34 PM EST Sent patient a Avenso message to make aware. Lab ordered. ----- Message from Catarina Michelle sent at 09/07/2024 4:31 PM EST ----- Mild renal insufficiency but not overtly concerning Needs the higher dose lasix given elevated pulm pressures on echo. Continue current dose of furosemide 20 mg daily Repeat BMP in 2-4 weeks documented in this encounter Plan of Treatment Upcoming Encounters Date Type Department Care Team (Late st Contact Info) Description 01/25/2025 3:30 PM EDT Office Visit Cardiology, [facility] [address] [place] [address] Catarina Michelle PA-C [address] [place] [address] 07/20/2025 12:40 PM EDT Office Visit Pulmonary Medicine, [facility] [address] [place] [address] Sanket Donovan MD [address] [place] [address] 08/10/2025 11:00 AM EDT Office Visit Sleep Disorders Ctr [facility] [address] [place] [phone] Celine Pond, DO [address] [place] [address] Scheduled Orders Name Type Priority Associated Diagnoses Orde r Schedule BASIC METABOLIC PANEL Lab Routine Encounter for monitoring diuretic therapy Expected: 09/21/2024 (Approximate), Expires: 09/07/2025 Scheduled Procedures Name Priority Associated Diagnoses Date/Ti [...] this encounter Medical Devices Implanted Type Area Lace Stripper Device Identifier Shelf Expiration Date Model / Serial / Lot 3d Light Right Medium Mesh Implanted:Qty: 1 on 07/18/2015 by Damaso Medina MD at OR [facility] Right: Groin CR BARD : DAVOL 09/17/2019 [id number] / / [id number] documented as of this encounter Visit Diagnoses Diagnosis Encounter for monitoring diuretic therapy- Primary Encounter for therapeutic drug monitoring documented in this encounter Advance Directives Healthcare Agents on File Name Relationship Healthcare Agent Relationship Communication Malinda Goddard Spouse Health Care Agen t (per Health Care Power of Nursery Supervisor document) Care Teams Toe Pounder Relationship Specialty Start Date End Date Godwin Salas MD [address] [facility] [place] [address] PCP - General Family Medicine 03/07/20 documented as of this encounter
--- OUTSIDE RECORDS SUMMARY | 2024-12-21 13:25 | External Medical Summary | Summary of Care ---
Author Name Unknown Organization [facility] Address [address] [facility] [address] Phone [phone] Care Team Providers Care Speedboat Driver Name Role Phone Godwin Salas MD Primary Care Provider [phone] Encounter Details Date Type Department Care Team (Late st Contact Info) Description 08/24/2024 Orders Only PATIENT PORTAL DO NOT DELETE THIS DEPT USED BY [place] [id number] Allergies Active Allergy Reactions Criticality Noted Date Comments Beta Adrenergic Blockers Psych complications Medium 07/24/2023 Naproxen High 10/12/2020 Other reaction(s): Anaphylaxis Naproxen Sodium Edema face/lips/tongue High 06/30/20 14 documented as of this encounter (statuses as of 08/24/2024) Medications Medication Sig Dispensed Refills Start Date End Date Status Colchicine 0.6 MG Oral Tablet take 2 tablets by mouth ONCE FOR 1 DOSE AT ONSET OF GOUT ATTACK AND 1 TABLET AN HOUR LATER Strength: 0.6 mg 90 Tablet 3 01/21/2023 Active Lisinopril 20 MG Oral Tablet (Prinivil) take 1 tablet by mouth every morning 90 Tablet 3 09/27/2023 Active Famotidine 40 MG Oral Tablet (Pepcid) take 1 tablet by mouth once daily AT 8 PM 90 Tablet 2 01/28/2024 Active Pantoprazole Sodium 40 MG Oral Tablet Delayed Release (Protonix)Indications: Gastroesophageal reflux disease with esophagitis without hemorrhage,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 90 Tablet 3 04/02/2024 Active Allopurinol 300 MG Oral Tablet (Zyloprim)Indications: Gouty arthropathy Take 1 Tablet by mouth in the morning. 90 Tablet 1 05/14/2024 Active Meloxicam 15 MG Oral Tablet (Mobic) Take 1 Tablet by mouth in the morning. 90 Tablet 1 07/21/2024 Active Eliquis 5 MG Oral Tablet (Apixaban)Indications: Chronic thromboembolic disease (HCC) take 1 tablet by mouth every morning and BEFORE BEDTIME 180 Tablet 1 07/25/2024 Active Furosemide 20 MG Oral Tablet (Lasix)Indications:Chr onic right-sided heart failure (HCC),HTN, goal below 130/80 Take 1 Tablet by mouth in the morning. 90 Tablet 3 08/23/2024 Active documented as of this encounter (statuses as of 08/24/2024) Active Problems Problem Noted Date Diagnosed Date [...] as of this encounter (statuses as of 08/24/2024) Resolved Problems Problem Noted Date Diagnosed Date [...] 05/07/2016 04/04/2021 Abnormal finding on EKG 06/24/201510/21 Overview: T wave inversion in lead III Food sticks on swallowing 06/10/2015 Situational anxiety 12/07/2013 01/08/20 CMC (carpometacarpal joint) sprains 12/10/2012 08/14/2013 Overview: Sprain 1st CMC joint left hand. Hypertension goal BP (blood pressure) < 140/90 01/23/2012 05/04/2019 Dyslipidemia, goal LDL below 130 01/23/2012 11/12/2016 Urticaria due to drug allergy 01/23/2012 08/14/2013 Left anterior hemiblock 01/23/201210/21 Dyslipidemia 01/23/2012 10/04/2020 Left anterior hemiblock 01/23/201202/18 ANGIOEDEMA 05/21/2011 01/23/2012 Other specified urticaria 05/21/2011 Overview: 03/10/11 - present HTN, goal to be determined 0 01/23/2012 Esophageal reflux 06/10/2015 documented as of this encounter (statuses as of 08/24/2024) Immunizations Name Administration Dates Next Due COVID-19 [...] Assigned at Male 06/15/2020 11:04 AM EDT Gender Identity Male 06/15/2020 11:04 AM EDT Sexual Orientation Straight 06/15/2020 11 :04 AM EDT Job Start Date Occupation Industry Not on file Not on file Not on file documented as of this encounter Plan of Treatment Upcoming Encounters Date Type Department Care Team (Late st Contact Info) Description 01/25/2025 3:30 PM EDT Office Visit Cardiology, [facility] [address] [place] [address] Catarina Michelle, [facility]IR[facility] [address] [place] [address] 07/20/2025 12:40 PM EDT Office Visit Pulmonary Medicine, [facility] [address] [facility] [place] [address] Sanket Donovan MD [address] [place] [address] 08/10/2025 11:00 AM EDT Office Visit Sleep Disorders Ctr [facility] [address] [facility] [place] [phone] Celine Pond DO [address] [place] [address] Scheduled Procedures Name Priority Associated Diagnoses Date/Ti [...] this encounter Medical Devices Implanted Type Area Pairer Device Identifier Shelf Expiration Date Model / Serial / Lot 3d Light Right Medium Mesh Implanted:Qty: 1 on 07/18/2015 by Damaso Medina MD at OR [facility] Right: Groin CR BARD : DAVOL 09/17/2019 [id number] / / [id number] documented as of this encounter Advance Directives Healthcare Agents on File Name Relationship Healthcare Agent Relationship Communication Malinda Goddard Spouse Health Care Agen t (per Health Care Power of Administrative Support Associate document) Care Teams Speedboat Driver Relationship Specialty Start Date End Date Godwin Salas MD [address] [place] [address] PCP - General Family Medicine 03/07/20 documented as of this encounter
--- OUTSIDE RECORDS SUMMARY | 2024-12-21 13:25 | External Medical Summary | Summary of Care ---
Author Name Unknown Organization [facility] Address [address] [facility] [place] [address] Phone [phone] Care Team Providers Care Circuit Board Inspector Name Role Phone Timmy Salas MD Primary Care Provider [phone] Reason for Visit * Reason Comments eRx-Medication Refill Encounter Details Date Type Department Care Team (Late st Contact Info) Description 09/27/2024 Refill Family Practice [facility] [address] [place] [address] Timmy Salas MD [address] [place] [address] Allergies Active Allergy Reactions Criticality Noted Date Comments Beta Adrenergic Blockers Psych complications Medium 07/24/2023 Naproxen High 10/12/2020 Other reaction(s): Anaphylaxis Naproxen Sodium Edema face/lips/tongue High 06/30/20 14 documented as of this encounter (statuses as of 09/29/2024) Medications Colchicine 0.6 MG Oral Tablet take 2 tablets by mouth ONCE FOR 1 DOSE AT ONSET OF GOUT ATTACK AND 1 TABLET AN HOUR LATER Strength: 0.6 mg 90 Tablet 3 01/22/20 23 Active Famotidine 40 MG Oral Tablet (Pepcid) take 1 tablet by mouth once daily AT 8 PM 90 Tablet 2 01/28/20 24 Active Pantoprazole Sodium 40 MG Oral Tablet Delayed Release (Protonix)Indicati ons:Gastroesophage al reflux disease with esophagitis without hemorrhage,Jacome 's esophagus determined by biopsy Take 1 Tablet by mouth in the morning. 90 Tablet 3 04/02/20 24 Active Allopurinol 300 MG Oral Tablet (Zyloprim)Indicati ons:Gouty arthropathy Take 1 Tablet by mouth in the morning. 90 Tablet 1 05/14/20 24 Active Meloxicam 15 MG Oral Tablet (Mobic) Take 1 Tablet by mouth in the morning. 90 Tablet 1 07/21/20 24 Active Eliquis 5 MG Oral Tablet (Apixaban)Indicati ons:Chronic thromboembolic disease (HCC) take 1 tablet by mouth every morning and BEFORE BEDTIME 180 Tablet 1 07/25/20 24 Active Furosemide 20 MG Oral Tablet (Lasix)Indications :Chronic right-sided heart failure (HCC),HTN, goal below 130/80 Take 1 Tablet by mouth in the morning. 90 Tablet 3 08/23/20 24 Active Lisinopril 20 MG Oral Tablet (Prinivil) take 1 tablet by mouth every morning 90 Tablet 1 09/29/20 24 Active Lisinopril 20 MG Oral Tablet (Prinivil) take 1 tablet by mouth every morning 90 Tablet 3 09/27/20 23 024 Discontinued documented as of this encounter (statuses as of 09/29/2024) Active Problems Problem Noted Date Diagnosed Date [...] as of this encounter (statuses as of 09/29/2024) Resolved Problems Problem Noted Date Diagnosed Date [...] as of this encounter (statuses as of 09/29/2024) Immunizations Name Administration Dates Next Due COVID-19 [...] encounter Miscellaneous Notes * Telephone Encounter - Renu Hernandez [facility] - 09/29/2024 6:37 AM ESTSigned Prescriptions: Disp Refills Lisinopril 20 MG Oral Tablet (Prinivil) 90 Tab*1 Sig: take 1 tablet by mouth every morningAuthorizing Provider: TIMMY SALAS User: RENU HERNANDEZ- documented in this encounter Plan of Treatment Upcoming Encounters Date Type Department Care Team (Late st Contact Info) Description 01/25/2025 3:30 PM EDT Office Visit Cardiology, [facility] [address] [place] [address] Catarina Michelle PA-C [address] [facility] [place] [address] 07/20/2025 12:40 PM EDT Office Visit Pulmonary Medicine, [facility] [address] [place] [address] Sanket Donovan MD [address] [place] [address] 08/10/2025 11:00 AM EDT Office Visit Sleep Disorders Ctr [facility] [address] [place] [phone] Celine Pond, [address] [place] [address] Scheduled Procedures Name Priority Associated Diagnoses Date/Ti [...] this encounter Medical Devices Implanted Type Area Vat Packer Device Identifier Shelf Expiration Date Model / Serial / Lot 3d Light Right Medium Mesh Implanted:Qty: 1 on 07/18/2015 by Damaso Medina MD at OR [facility] Right: Groin CR BARD : DAVOL 09/17/2019 [id number] / / [id number] documented as of this encounter Advance Directives Healthcare Agents on File Name Relationship Healthcare Agent Relationship Communication Malinda Goddard Spouse Health Care Agen t (per Health Care Power of Commissioned Fire Officer document) Care Teams Circuit Board Inspector Relationship Specialty Start Date End Date Timmy Salas MD [address] [place] [address] PCP - General Family Medicine 03/07/20 documented as of this encounter
--- OUTSIDE RECORDS SUMMARY | 2024-12-21 13:25 | External Medical Summary | Summary of Care ---
Author Name Unknown Organization [facility] Address [address] [place] [address] Phone [phone] Care Team Providers Care Director Style Name Role Phone Godwin Salas MD Primary Care Provider [phone] Reason for Visit * Reason Onset Date Comments Test Results 09/07/2024 Encounter Details Date Type Department Care Team (Late st Contact Info) Description 09/07/2024 Telephone Cardiology, [facility] [address] [place] [address] Catarina Michelle PA-C [address] [employer] [place] [address] Test Results Allergies Active Allergy Reactions Criticality Noted Date Comments Beta Adrenergic Blockers Psych complications Medium 07/24/2023 Naproxen High 10/12/2020 Other reaction(s): Anaphylaxis Naproxen Sodium Edema face/lips/tongue High 06/30/20 14 documented as of this encounter (statuses as of 09/08/2024) Medications Colchicine 0.6 MG Oral Tablet take [...] as of this encounter (statuses as of 09/08/2024) Active Problems Problem Noted Date Diagnosed Date [...] as of this encounter (statuses as of 09/08/2024) Resolved Problems Problem Noted Date Diagnosed Date [...] as of this encounter (statuses as of 09/08/2024) Immunizations Name Administration Dates Next Due COVID-19 [...] 09/07/2024 4:34 PM EST Sent patient a Xobni message to make aware. Lab ordered. ----- [...] Visit Cardiology, [facility] [address] [place] [address] Catarina Michelle PA-C [address] [place] [address] 07/20/2025 12:40 PM EDT Office Visit Pulmonary Medicine, [facility] [address] [place] [address] Sanket Donovan MD [address] [place] [address] 08/10/2025 11:00 AM EDT Office Visit Sleep Disorders Ctr [facility] [address] [place] [phone] Celine Pond, DO [address] [place] [address] Scheduled Orders Name Type Priority Associated Diagnoses [...] this encounter Medical Devices Implanted Type Area Ball Ender Device Identifier Shelf Expiration Date Model / Serial / Lot 3d Light Right Medium Mesh Implanted:Qty: 1 on 07/18/2015 by Damaso Medina MD at OR [facility] Right: Groin CR BARD : DAVOL 09/17/2019 [id number] / / [id number] documented as of this encounter Visit Diagnoses Diagnosis Encounter for monitoring diuretic therapy- Primary Encounter for therapeutic drug monitoring documented in this encounter Advance Directives Healthcare Agents on File Name Relationship Healthcare Agent Relationship Communication Malinda Goddard Spouse Health Care Agen t (per Health Care Power of Compressor Assembler document) Care Teams Director Style Relationship Specialty Start Date End Date Godwin Salas MD [address] [facility] [place] [address] PCP - General Family Medicine 03/07/20 documented as of this encounter
--- OUTSIDE RECORDS SUMMARY | 2024-12-21 13:25 | External Medical Summary | Summary of Care ---
Author Name Unknown Organization [facility] Address [address] [facility] [place] [address] Phone [phone] Care Team Providers Care Agriscience Teacher Name Role Phone Godwin Salas MD Primary Care Provider [phone] [phone] Encounter Details Date Type Department Care Team (Late st Contact Info) Description 08/26/2024 Result Scan Unspecified Department Celine Pond, DO [address] [place] [address] <No scans attached> Allergies Active Allergy Reactions Criticality Noted Date Comments Beta Adrenergic Blockers Psych complications Medium 07/24/2023 Naproxen High 10/12/2020 Other reaction(s): Anaphylaxis Naproxen Sodium Edema face/lips/tongue High 06/30/20 14 documented as of this encounter (statuses as of 09/21/2024) Medications Colchicine 0.6 MG Oral Tablet take [...] as of this encounter (statuses as of 09/21/2024) Active Problems Problem Noted Date Diagnosed Date [...] as of this encounter (statuses as of 09/21/2024) Resolved Problems Problem Noted Date Diagnosed Date [...] as of this encounter (statuses as of 09/21/2024) Immunizations Name Administration Dates Next Due COVID-19 [...] Team (Late st Contact Info) Description 09/23/2024 11:30 AM EST Laboratory Laboratory [address], [place] [address] [facility] [address] [facility] [place] [id number] Luis Abarca [facility] [address] [address] [place] [address] 01/25/2025 3:30 PM EDT Office Visit Cardiology, [facility] [address] [facility] [place] [address] Catarina Michelle PA-C [address] [place] [address] 07/20/2025 12:40 PM EDT Office Visit Pulmonary Medicine, [facility] [address] [facility] [place] [address] Sanket Donovan MD [address] [place] [address] 08/10/2025 11:00 AM EDT Office Visit Sleep Disorders Ctr [facility] [address] [facility] [place] [phone] Celine Pond DO [address] [place] [address] Scheduled Procedures Name Priority Associated Diagnoses Date/Ti [...] this encounter Medical Devices Implanted Type Area Professor Of Psychiatry Device Identifier Shelf Expiration Date Model / Serial / Lot 3d Light Right Medium Mesh Implanted:Qty: 1 on 07/18/2015 by Damaso Medina MD at OR [facility] Right: Groin CR BARD : DAVOL 09/17/2019 [id number] / / [id number] documented as of this encounter Procedures Procedure Name Priority Date/Time Associated Diagnosis Comments PROCEDURE SCANNED RESULT 08/26/2024 documented in this encounter Results * PROCEDURE SCANNED RESULT (08/26/2024) 08/26/2024 us Celine Pond DO SURGERY Final Resu lt documented in this encounter Advance Directives Healthcare Agents on File Name Relationship Healthcare Agent Relationship Communication Malinda Goddard Spouse Health Care Agen t (per Health Care Power of Habilitation Assistant document) Care Teams Agriscience Teacher Relationship Specialty Start Date End Date Godwin Salas MD [address] [place] [address] PCP - General Family Medicine 03/07/20 documented as of this encounter
--- OUTSIDE RECORDS SUMMARY | 2024-12-21 13:25 | External Medical Summary | Summary of Care ---
Author Name Unknown Organization [facility] Address [address] [place] [address] Phone [phone] Care Team Providers Care Base Brander Name Role Phone Godwin Salas MD Primary Care Provider [phone] Reason for Visit * Reason Onset Date Comments Test Results 08/21/2024 Encounter Details Date Type Department Care Team (Late st Contact Info) Description 08/21/2024 Telephone Cardiology, [facility] [address] [place] [address] Catarina Michelle PA-C [address] [place] [address] Test Results Allergies Active Allergy Reactions Criticality [...] Sodium 40 MG Oral Tablet Delayed Release (Protonix)Indication s:Gastroesophageal reflux disease with esophagitis without hemorrhage,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 90 Tablet 3 04/02/2024 Active Allopurinol 300 MG Oral Tablet (Zyloprim)Indication s:Gouty arthropathy Take 1 Tablet by mouth in the morning. 90 Tablet 1 05/14/2024 Active Meloxicam 15 MG Oral Tablet (Mobic) Take 1 Tablet by mouth in the morning. 90 Tablet 1 07/21/2024 Active Eliquis 5 MG Oral Tablet (Apixaban)Indication s:Chronic thromboembolic disease (HCC) take 1 tablet by mouth every morning and BEFORE BEDTIME 180 Tablet 1 07/25/2024 Active Furosemide 20 MG Oral Tablet (Lasix)Indications:C hronic right-sided heart failure (HCC),HTN, goal below 130/80 Take 1 Tablet by mouth in the morning. 90 Tablet 3 08/23/2024 Active Furosemide 20 MG Oral Tablet (Lasix)Indications:C hronic right-sided heart failure (HCC),HTN, goal below 130/80 take 1 tablet by mouth once daily ON SATURDAY, SATURDAY, AND SATURDAY 39 Tablet 3 12/24/2023 Discontinue d(Refill) documented as of this encounter (statuses as [...] 20 CMC (carpometacarpal joint) sprains 12/10/2012 08/14/2013 Overview: [...] on file documented as of this encounter Miscellaneous Notes * Telephone Encounter - Catarina Michelle PA-C - 08/23/2024 2:01 PM EST Noted. Orders signed. Furosemide refill sent to [facility] Likely alcohol consumption the night before would not have caused the higher pulm pressures. * Telephone Encounter - Jeffy Kelley LPN - 08/21/2024 4:23 PM EDT Please see patient's Shippohart reply. * Telephone Encounter - Jeffy Kelley LPN - 08/21/2024 1:57 PM EDT Sent patient a [employer] message to make aware. BMP ordered. ----- Message from Catarina Michelle sent at 08/21/2024 1:56 PM EDT ----- Echo results reviewed. Normal LVEF at 65-69% RV is mildly dilated Moderate TR noted. Severe pulm hypertension with estimated pulm artery systolic pressure of 80 mmHg. Pulm pressures are much higher than prior echo May of 2023 - pulm pressures were 48 mmHg He needs to be compliant with CPAP therapy Saw Pulm in Jun 2024 prior to echo and no adjustments were recommended but forwarding this to Dr. Donovan. At time of visit several weeks ago patient was not taking furosemide regularly. Would recommend increasing furosemide to 20 mg daily to aid with pulm pressures. Repeat BMP in 1-2 weeks documented in this encounter Plan of Treatment Upcoming Encounters Date Type Department Care Team (Late st Contact Info) Description 01/25/2025 3:30 PM EDT Office Visit Cardiology, [facility] [address] [facility] [place] [address] Catarina Michelle PA-C [address] [place] [address] 07/20/2025 12:40 PM EDT Office Visit Pulmonary Medicine, [facility] [address] [facility] [place] [address] Sanket Donovan MD [address] [facility] [address] 08/10/2025 11:00 AM EDT Office Visit Sleep Disorders Ctr [facility] [address] [facility] [place] [phone] Celine Pond DO [address] [place] [address] Scheduled Orders Name Type Priority Associated Diagnoses Orde r Schedule BASIC METABOLIC PANEL Lab Routine Encounter for monitoring diuretic therapy Expected: 09/04/2024 (Approximate), Expires: 08/21/2025 Scheduled Procedures Name Priority Associated Diagnoses Date/Ti [...] this encounter Medical Devices Implanted Type Area Powder Cutting Operator Device Identifier Shelf Expiration Date Model / Serial / Lot 3d Light Right Medium Mesh Implanted:Qty: 1 on 07/18/2015 by Damaso Medina MD at OR [facility] Right: Groin CR BARD : DAVOL 09/17/2019 [id number] / / [id number] documented as of this encounter Visit Diagnoses Diagnosis Encounter for monitoring diuretic therapy- Primary Encounter for therapeutic drug monitoring Chronic right-sided heart failure (HCC) Congestive heart failure, unspecified HTN, goal below 130/80 Unspecified essential hypertension documented in this encounter Advance Directives Healthcare Agents on File Name Relationship Healthcare Agent Relationship Communication Malinda Goddard Spouse Health Care Agen t (per Health Care Power of Fabricator Assembler [employer] document) Care Teams Base Brander Relationship Specialty Start Date End Date Godwin Salas MD [address] [place] [address] PCP - General Family Medicine 03/07/20 documented as of this encounter
--- OUTSIDE RECORDS SUMMARY | 2024-12-21 13:26 | External Medical Summary ---
Author Name Unknown Address Unknown Organization K01:LABORATORY [facility] [place] - [address] [place] [address] Laboratory Report Ordering Provider Test Date Status LILIAN STANFORD 07/24/2024 08:02:52 Final Observation Date Value Abnormality Reference (Units ) Status Magnesium 07/24/2024 08:02:52 2.4 1.5-2.6 (m g/dL) Final Performing Location LABORATORY [facility] - [address] [place] [address]
--- OUTSIDE RECORDS SUMMARY | 2024-12-21 13:26 | External Medical Summary ---
Author Name Unknown Address Unknown Organization K01[place] [facility] [place] [address] [facility] [place] [address] Laboratory Report Ordering Provider Test Date Status LILIAN STANFORD 07/24/2024 08:02:52 Final Observation Date Value Abnormality Reference (Units ) Status BUN 07/24/2024 08:02:52 18 6-20 (mg/dL) Final Creatinine 07/24/2024 08:02:52 1.1 0.6-1.2 (mg/dL) Final Glomerular filtration rate/1.73 sq M.predicted [Volume Rate/Area] in Serum, Plasma or Blood by Creatinine-based formula (CKD-EPI) 07/24/2024 08:02:52 73 >=60 (mL/min) Final eGFR is calculated based on the CKD-EPI 2020 equation. Sodium 07/24/2024 08:02:52 143 135-146 (m mol/L) Final Potassium 07/24/2024 08:02:52 5.1 3.5-5.1 (m mol/L) Final Cl 07/24/2024 08:02:52 107 98-107 (mm ol/L) Final CO2 07/24/2024 08:02:52 24 22-32 (mmo l/L) Final Anion gap 07/24/2024 08:02:52 12 7-15 (mmol /L) Final Glucose 07/24/2024 08:02:52 89 70-120 (mg /dL) Final Albumin 07/24/2024 08:02:52 4.2 3.8-5.0 (g /dL) Final AST (Aspartate aminotransferase) 07/24/2024 08:02:52 36 10-50 (U/L) Final Alk Phos 07/24/2024 08:02:52 87 35-130 (U/ L) Final Bilirubin, Total 07/24/2024 08:02:52 0.6 <=1 .2 (mg/dL) Final Calcium 07/24/2024 08:02:52 9.0 8.4-10.2 ( mg/dL) Final Protein 07/24/2024 08:02:52 6.7 6.0-8.3 (g /dL) Final ALT (Alanine aminotransferase) 07/24/2024 08:02:52 36 10-50 (U/L) Final Performing Location [place] [facility] [place] [address] [facility] [address]
--- OUTSIDE RECORDS SUMMARY | 2024-12-21 13:26 | External Medical Summary ---
Author Name Unknown Address Unknown Organization K01:LABORATORY [facility] [place] - [address] [place] [address] Laboratory Report Ordering Provider Test Date Status LILIAN STANFORD 07/24/2024 08:02:52 Final Observation Date Value Abnormality Reference (Units ) Status WBC, Total 07/24/2024 08:02:52 6.82 4.00-10.80 (K/uL) Final RBC 07/24/2024 08:02:52 4.77 4.50-5.25 (M/uL) Final Hemoglobin 07/24/2024 08:02:52 15.9 14.0-16.8 (g/dL) Final HCT 07/24/2024 08:02:52 48.9 Above high normal 40.0-48.4 (%) Final MCV 07/24/2024 08:02:52 102.5 82.0-99.5 (fL) Final MCH 07/24/2024 08:02:52 33.3 27.0-34.0 (pg) Final MCHC 07/24/2024 08:02:52 32.5 32.0-36.0 (g/dL) Final RDW 07/24/2024 08:02:52 14.2 11.5-15.5 (%) Final Platelets 07/24/2024 08:02:52 179 140-400 (K/uL) Final MPV 07/24/2024 08:02:52 12.2 6.6-11.1 (fL) Final Nucleated erythrocytes/100 leukocytes [Ratio] in Blood by Automated count 07/24/2024 08:02:52 0 <=0 (/100 WBCs) Final Performing Location LABORATORY [facility] [place] - [address] [place] [address]
--- OUTSIDE RECORDS SUMMARY | 2024-12-21 13:26 | External Medical Summary | Summary of Care ---
Author Name Unknown Organization [facility] Address [address] [facility] [place] [address] Phone [phone] Care Team Providers Care Cyber Security Name Role Phone Godwin Salas MD Primary Care Provider [phone] Reason for Visit * Reason Comments Follow Up Encounter Details Date Type Department Care Team (Late st Contact Info) Description 08/07/2024 11:00 AM EDT Office Visit Sleep Disorders Ctr [facility] [address] [place] [address] Celine Pond, [address] [place] [address] BERTRAM (obstructive sleep apnea)*; Nocturnal hypoxemia; Dream enactment behavior Allergies Active Allergy Reactions Criticality Noted Date Comments Beta Adrenergic Blockers Psych complications Medium 07/24/2023 Naproxen High 10/12/2020 Other reaction(s): Anaphylaxis Naproxen Sodium Edema face/lips/tongue High 06/30/20 14 documented as of this encounter (statuses as of 08/07/2024) Medications Medication Sig Dispensed Refills Start Date End Date Status Colchicine 0.6 MG Oral Tablet take 2 tablets by mouth ONCE FOR 1 DOSE AT ONSET OF GOUT ATTACK AND 1 TABLET AN HOUR LATER Strength: 0.6 mg 90 Tablet 3 01/21/2023 Active Lisinopril 20 MG Oral Tablet (Prinivil) take 1 tablet by mouth every morning 90 Tablet 3 09/27/2023 Active Furosemide 20 MG Oral Tablet (Lasix)Indications:Chr onic right-sided heart failure (HCC),HTN, goal below 130/80 take 1 tablet by mouth once daily ON SATURDAY, SATURDAY, AND SATURDAY 39 Tablet 3 12/24/2023 Active Famotidine 40 MG Oral Tablet (Pepcid) [...] BEFORE BEDTIME 180 Tablet 1 07/25/2024 Active documented as of this encounter (statuses as of 08/07/2024) Active Problems Problem Noted Date Diagnosed Date [...] as of this encounter (statuses as of 08/07/2024) Resolved Problems Problem Noted Date Diagnosed Date [...] as of this encounter (statuses as of 08/07/2024) Immunizations Name Administration Dates Next Due COVID-19 [...] on file documented as of this encounter Last Filed Vital Signs Vital Sign Reading Time Taken Comments Blood Pressure 142/80 08/07/2024 10:46 AM EDT Pulse 60 08/07/2024 10:46 AM EDT Temperature 36.4 C (97.5 F) 08/07/2024 1 0:46 AM EDT Respiratory Rate 20 08/07/2024 10:4 6 AM EDT Oxygen Saturation 94% 08/07/2024 10: 46 AM EDT ra, rest Inhaled Oxygen Concentration - - Weight 106.1 kg (233 lb 12.8 oz) 2023 10:46 AM EDT Height 175.3 cm (5' 9") 08/07/2024 10:4 6 AM EDT Body Mass Index 34.53 08/07/2024 10:46 AM EDT documented in this encounter Progress Notes * eCline Pond, - 08/07/2024 10:53 AM EDT Sleep Medicine Follow-Up Clinic Note HISTORY: Mr. Gonzalez Goddard is a 69 year old male w/ a pmh of HTN and PE who is in clinic today for follow upof Obstructive Sleep Apnea and Nocturnal Hypoxemia. Mr. Goddard is doing well with his PAP which improves his sleep. He continues to be pleased with this AirFit F20. He does have some aerophagia -- has one MyPillow behind his head. He had to decrease his humidifier level from 2 to 1 because of condensation causing noises. Denies significant leak, prolonged facial velazquez from mask, significant dry eyes/nose/mouth, and feeling the pressure is too muchor too little. He's not had any dream enactment while wearing his PAP. Home Sleep Apnea Test (HSAT) 11/18/23: VIKKI 39.4 O2 Adam 73 % <89% O2 34.3 mins Patient-Entered [facility] 2019 Msp: Part I And Employment Question 08/06/2024 1:13 PM EDT - Filed by Patient Are you currently employed? No, Retired Date of fdc: 2007 Do you have a spouse who is currently employed? No, Retired Date of fdc: 08/20/2019 Medicare requires that we periodically ask the following questions. Are you receiving benefits under the Black Lung Benefits Act (BL)? No Was the illness/injury due to a work-related accident/condition? No Are you receiving treatment for an injury or illness covered under no-fault (and/or medical-paymentcoverage) including premises or automobile? No Are you receiving treatment for an injury, or illness, for which another alliance party may be liable? No Are you entitled to Medicare based on: Age? Yes End-stage renal disease (ESRD)? No Patient-Entered Msp: Ckq-Wguyvkxjug-Gutd Primary Branch Calculation (range: 0 - 5) 1 Do you have group health plan (GHP) coverage based on your own current employment or the employmentof your spouse? No [place] Sleepiness Scale Question 08/06/2024 1:16 PM EDT - Filed by Patient What is the chance you will doze off in the following situation? Sitting and reading Slight chance of dozing Watching TV No chance of dozing Sitting inactive in a public place, such as a theater or meeting No chance of dozing As a passenger in a car for an hour without a break No chance of dozing Lying down to rest in the afternoon when circumstances permit Moderate chance of dozing When sitting and talking to someone No chance of dozing When sitting quietly after lunch without alcohol Slight chance of dozing In a car, while stopped for a few minutes in traffic No chance of dozing Score (range: 0 - 24) 4 Travel Screening Question 08/07/2024 10:40 AM EDT - Filed by Patient Do you have any of the following new or worsening symptoms? None of these Have you recently been in contact with someone who was sick? No / Unsure PAP Compliance: Report date: 07/05/24 to 08/03/24 % total days used: 100% % days used > 4 hours: 100% Average hours a day: 7 hours 12 mins Large leak: 0 AHI: 0.7/hr 95% pressure: 9.4 cmH20 Equipment: DME Provider is Lottie 8-20 cmH20 Patient Active Problem List Diagnosis Organic erectile dysfunction Gastroesophageal reflux disease with esophagitis without hemorrhage HTN, goal below 130/80 Pulmonary hypertension (HCC) History of DVT (deep vein thrombosis) History of pulmonary embolism Chronic thromboembolic disease (HCC) Chronic diastolic CHF (congestive heart failure) ([facility]) Obesity, Class I, BMI 30.0-34.9 (see actual BMI) Gouty arthropathy Hiatal hernia Chronic right-sided heart failure (HCC) Paroxysmal atrial flutter (HCC) S/P ablation of atrial flutter BERTRAM (obstructive sleep apnea) Current Outpatient Medications Medication Sig Dispense Refill Eliquis 5 MG Oral Tablet (Apixaban) take 1 tablet by mouth every morning and BEFORE BEDTIME 180 Tablet 1 Meloxicam 15 MG Oral Tablet (Mobic) Take 1 Tablet by mouth in the morning. 90 Tablet 1 Allopurinol 300 MG Oral Tablet (Zyloprim) Take 1 Tablet by mouth in the morning. 90 Tablet 1 Pantoprazole Sodium 40 MG Oral Tablet Delayed Release (Protonix) Take 1 Tablet by mouth in the morning. 90 Tablet 3 Famotidine 40 MG Oral Tablet (Pepcid) take 1 tablet by mouth once daily AT 8 PM 90 Tablet 2 Furosemide 20 MG Oral Tablet (Lasix) take 1 tablet by mouth once daily ON SATURDAY, SATURDAY, AND SATURDAY 39 Tablet 3 Lisinopril 20 MG Oral Tablet (Prinivil) take 1 tablet by mouth every morning 90 Tablet 3 Colchicine 0.6 MG Oral Tablet take 2 tablets by mouth ONCE FOR 1 DOSE AT ONSET OF GOUT ATTACK AND 1TABLET AN HOUR LATER Strength: 0.6 mg 90 Tablet 3 No current facility-administered medications for this visit. PHYSICAL EXAM: BP 142/80 | Pulse 60 | Temp 36.4 C (97.5 F) (Tympanic) | Resp 20 | Ht 1.753 m (5' 9") | Wt 106.1 kg (233 lb 12.8 oz) | SpO2 94% Comment: ra, rest | BMI 34.53 kg/m | BSA 2.27 m Constitutional: Alert, oriented in no acute distress Skin: no markings on face where mask fits Chest: Normal respiratory effort at rest Neuro: Normal speech and comprehension Psych: Appropriate mood and affect ASSESSMENT/PLAN: Obstructive Sleep Apnea Nocturnal Hypoxemia Dream Enactment Encouraged continued use of PAP every night, all night and for naps. Continue PAP at current setting Overnight oximetry on RA with PAP Recommended routine cleaning and change of supplies as needed. Even a mild to moderate weight loss should result in significant improvement in the patients nocturnal respiratory events. Strenuous exercise, which activates the sympathetic nervous system (adrenaline system) not only helps with weight loss, glucose, and mood, but also improves sleep quality, and upper respiratory muscle tone during sleep. Avoid driving, operating heavy machinery or engaging in any activity that requires full alertness if feeling sleepy, drowsy or otherwise impaired. Continue to monitor for improvement in dream enactment with the adequate treatment of SRBDs Follow-up with Sleep Medicine in 1 year. Celine Pond DO I spent a total of 30-39 minutes (exact time 30 mins) on the date of service in preparation, delivery, and documentation of the care provided to Gonzalez Goddard excluding any time spent in the performance of separately billed services. documented in this encounter Nursing Notes * Jany Turcios LPN - 08/07/2024 10:42 AM EDT Pt for f/u BERTRAM on CPAP. DME - [employer] [place] Sleepiness Scale Question 08/06/2024 1:16 PM EDT - Filed by Patient What is the chance you will doze off in the following situation? Sitting and reading Slight chance of dozing Watching TV No chance of dozing Sitting inactive in a public place, such as a theater or meeting No chance of dozing As a passenger in a car for an hour without a break No chance of dozing Lying down to rest in the afternoon when circumstances permit Moderate chance of dozing When sitting and talking to someone No chance of dozing When sitting quietly after lunch without alcohol Slight chance of dozing In a car, while stopped for a few minutes in traffic No chance of dozing Score (range: 0 - 24) 4 documented in this encounter Plan of Treatment Upcoming Encounters Date Type Department Care Team (Late st Contact Info) Description 08/07/2024 3:00 PM EDT Cardiac Studies Cardiac Studies, [address] [place] [address] 01/25/2025 3:30 PM EDT Office Visit Cardiology, [facility] [address] [facility] [place] [address] Catarina Michelle PA-C [address] [place] [address] 07/20/2025 12:40 PM EDT Office Visit Pulmonary Medicine, [facility] [address] [facility] [place] [address] Sanket Donovan MD [address] [place] [address] 08/10/2025 11:00 AM EDT Office Visit Sleep Disorders Ctr [facility] [address] [facility] [place] [phone] Celine Pond DO 132 [facility] [place] [address] Scheduled Procedures Name Priority Associated Diagnoses Date/Ti [...] this encounter Medical Devices Implanted Type Area Sales Architect Device Identifier Shelf Expiration Date Model / Serial / Lot 3d Light Right Medium Mesh Implanted:Qty: 1 on 07/18/2015 by Damaso Medina MD at OR [facility] Right: Groin CR BARD : DAVOL 09/17/2019 [id number] / / [id number] documented as of this encounter Visit Diagnoses Diagnosis BERTRAM (obstructive sleep apnea)- Primary Obstructive sleep apnea (adult) (pediatric) Nocturnal hypoxemia Hypoxemia Dream enactment behavior documented in this encounter Advance Directives Healthcare Agents on File Name Relationship Healthcare Agent Relationship Communication Malinda Goddard Spouse Health Care Agen t (per Health Care Power of Surgical Garment Assembly Supervisor document) Care Teams Cyber Security Relationship Specialty Start Date End Date Godwin Salas MD [address] [place] [address] PCP - General Family Medicine 03/07/20 documented as of this encounter
--- OUTSIDE RECORDS SUMMARY | 2024-12-21 13:26 | External Medical Summary ---
Author Name Unknown Address Unknown Organization [id number]:[facility] [place] - [address] [facility] [place] [address] Laboratory Report Ordering Provider Test Date Status LILIAN STANFORD 07/24/2024 08:02:52 Final Observation Date Value Abnormality Reference (Units ) Status Triglyceride 07/24/2024 08:02:52 156 <=174 ( mg/dL) Final Triglyceride Reference Range s (mg/dL):
<150 Acceptable
150-174 Borderline high
175-499 High
>=500 Very high Cholesterol 07/24/2024 08:02:52 195 <200 (mg /dL) Final Total Cholesterol Reference Ranges (mg/dL):
<200 Desirable
200-239 Borderline high
>=240 High HDL 07/24/2024 08:02:52 42 >39 (mg/dL ) Final HDL Cholesterol Reference Ra nges (mg/dL):
>=60 High (Desirable)
<50 Low (Undesirable) For Females
<40 Low (Undesirable) For Males NON-HDL CHOLESTEROL 07/24/2024 08:02:52 153 <=159 (mg/dL) Final Non-HDL Cholesterol Referenc e Range (mg/dL):
<100 Target level for high risk ASCVD patient
<130 Optimal for general population
130-159 Near optimal for general population
160-189 Borderline High
190-219 High
>=220 Very High LDL, (calculated) 07/24/2024 08:02:52 122 <= 129 (mg/dL) Final LDL Cholesterol Reference Ra nges (mg/dL):
<70 Target level for high risk ASCVD patient
<100 Optimal for general population
100-129 Near optimal for general population
130-159 Borderline high
160-189 High
>=190 Very high Performing Location LABORATORY [facility] [place] - [address] [facility] [address]
--- OUTSIDE RECORDS SUMMARY | 2024-12-21 13:26 | External Medical Summary | Summary of Care ---
Author Name Unknown Organization [facility] Address [address] [place] [address] Phone [phone] Care Team Providers Care Assault Boat Coxswain Name Role Phone Timmy Salas MD Primary Care Provider [phone] Reason for Visit * Reason Comments eRx-Medication Refill Encounter Details Date Type Department Care Team (Late st Contact Info) Description 07/24/2024 Refill Family Practice [facility] [address] [place] [address] Timmy Salas MD [address] [place] [address] Chronic thromboembolic disease (HCC) Allergies Active Allergy Reactions Criticality Noted Date Comments Beta Adrenergic Blockers Psych complications Medium 07/24/2023 Naproxen High 10/12/2020 Other reaction(s): Anaphylaxis Naproxen Sodium Edema face/lips/tongue High 06/30/20 14 documented as of this encounter (statuses as of 07/25/2024) Medications Medication Sig Dispensed Refills Start Date End Date Status Colchicine 0.6 MG Oral Tablet take 2 tablets by mouth ONCE FOR 1 DOSE AT ONSET OF GOUT ATTACK AND 1 TABLET AN HOUR LATER Strength: 0.6 mg 90 Tablet 3 3 Active Additional Information Patient not taking.Reported on 07/15/2024 Lisinopril 20 MG Oral Tablet (Prinivil) take 1 tablet by mouth every morning 90 Tablet 3 3 Active Furosemide 20 MG Oral Tablet (Lasix)Indications: Chronic right-sided heart failure (HCC),HTN, goal below 130/80 take 1 tablet by mouth once daily ON SATURDAY, SATURDAY, AND SATURDAY 39 Tablet 3 4 Active Famotidine 40 MG Oral Tablet (Pepcid) [...] BEFORE BEDTIME 180 Tablet 1 4 Active Apixaban 5 MG Oral Tablet (Eliquis)Indication s:Chronic thromboembolic disease (HCC) Take 1 Tablet by mouth in the morning and 1 Tablet before bedtime. 180 Tablet 3 3 07/25/20 24 Discontinued documented as of this encounter (statuses as of 07/25/2024) Active Problems Problem Noted Date Diagnosed Date [...] as of this encounter (statuses as of 07/25/2024) Resolved Problems Problem Noted Date Diagnosed Date [...] as of this encounter (statuses as of 07/25/2024) Immunizations Name Administration Dates Next Due COVID-19 [...] encounter Miscellaneous Notes * Telephone Encounter - Ovidio Ritter RPh - 07/25/2024 8:16 PM EDT * Telephone Encounter - Ovidio Ritter RPh - 07/25/2024 8:16 PM EDTSigned Prescriptions: Disp Refills Eliquis 5 MG Oral Tablet (Apixaban) 180 Ta*1 Sig: take 1 tablet by mouth every morning and BEFORE BEDTIME Authorizing Provider: TIMMY SALAS Ordering User: OVIDIO RITTER documented in this encounter Plan of Treatment Upcoming Encounters Date Type Department Care Team (Late st Contact Info) Description 08/07/2024 11:00 AM EDT Office Visit Sleep Disorders Ctr [facility] [address] [place] [address] [address] Celine Pond, [address] [place] [address] [address] 08/07/2024 3:00 PM EDT Cardiac Studies Cardiac Studies, [facility] [address] [facility] [place] [address] 01/25/2025 3:30 PM EDT Office Visit Cardiology, [facility] [address] [facility] [place] [address] Catarina Michelle, [place] [address] [facility] [place] [address] 07/20/2025 12:40 PM EDT Office Visit Pulmonary Medicine, [facility] [address] [facility] [place] [address] Sanket Donovan MD [address] [place] [address] Scheduled Procedures Name Priority Associated Diagnoses Date/Ti me COLONOSCOPY FLEXIBLE PROXIMAL DIAGNOSTIC Recall History of colon polyps Health Maintenance Due Date Last Done Comments Hepatitis C Screening 1971 Cologuard 1998 Fecal Occult Blood Test 1998 Sigmoidoscopy 1998 AAA Screening 2018 Adult Wellness Visit 2019 Depression Screening 04/04/2022 04/04/2021 COVID-19 Vaccine ( season) 2024 10/07/2023, 08/02/2022, 03/05/2022, Additional history exists GFR 09/03/2024 07/24/2024, 08/21, 07/30/2023, Additional history exists DTap/Tdap Vaccines (3 - Td or Tdap) 06/18/2025 06/18/2015, 01/23/2012 Jacome's Esophagus Surveilance 10/02/2025 10/02/2022, 10/02/2022 Albumin/Creatinine [...] this encounter Medical Devices Implanted Type Area Supervisor Audit Clerks Device Identifier Shelf Expiration Date Model / Serial / Lot 3d Light Right Medium Mesh Implanted:Qty: 1 on 07/18/2015 by Damaso Medina MD at OR [facility] Right: Groin CR BARD : DAVOL 09/17/2019 [id number] / / [id number] documented as of this encounter Visit Diagnoses Diagnosis Chronic thromboembolic disease (HCC) Embolism and thrombosis of unspecified artery documented in this encounter Advance Directives Healthcare Agents on File Name Relationship Healthcare Agent Relationship Communication Malinda Goddard Spouse Health Care Agen t (per Health Care Power of Medical Clerk document) Care Teams Assault Boat Coxswain Relationship Specialty Start Date End Date Timmy Salas MD [address] [place] [address] PCP - General Family Medicine 03/07/20 documented as of this encounter
--- OUTSIDE RECORDS SUMMARY | 2024-12-21 13:26 | External Medical Summary | Summary of Care ---
Author Name Unknown Organization [facility] Address [address] [facility] [place] [address] Phone [phone] Care Team Providers Care Geophysical Laboratory Supervisor Name Role Phone Godwin Salas MD Primary Care Provider [phone] Reason for Visit * Reason Onset Date Comments Outpatient Testing 08/07/2024 Noc ox Encounter Details Date Type Department Care Team (Late st Contact Info) Description 08/07/2024 Telephone Sleep Disorders Ctr [facility] [address] [place] [phone] Celine Pond, [address] [place] [address] Outpatient Testing (Noc ox) Allergies Active Allergy Reactions Criticality Noted Date Comments Beta Adrenergic Blockers Psych complications Medium 07/24/2023 Naproxen High 10/12/2020 Other reaction(s): Anaphylaxis Naproxen Sodium Edema face/lips/tongue High 06/30/20 14 documented as of this encounter (statuses as of 08/10/2024) Medications Medication Sig Dispensed Refills Start Date [...] as of this encounter (statuses as of 08/10/2024) Active Problems Problem Noted Date Diagnosed Date [...] as of this encounter (statuses as of 08/10/2024) Resolved Problems Problem Noted Date Diagnosed Date [...] as of this encounter (statuses as of 08/10/2024) Immunizations Name Administration Dates Next Due COVID-19 [...] encounter Miscellaneous Notes * Telephone Encounter - Liane Rooney OSA - 08/07/2024 1:50 PM EDT DME order for NOC submitted to [facility]. * Telephone Encounter - Celine Pond DO - 08/07/2024 11:38 AM EDT Nox on RA w/ PAP documented in this encounter Plan of Treatment Upcoming Encounters Date Type Department Care Team (Late st Contact Info) Description 01/25/2025 3:30 PM EDT Office Visit Cardiology, [facility] [address] [place] [address] Catarina Michelle PA-C [address] [place] [address] [address] 07/20/2025 12:40 PM EDT Office Visit Pulmonary Medicine, [facility] [address] [place] [address] Sanket Donovan MD [address] [place] [address] 08/10/2025 11:00 AM EDT Office Visit Sleep Disorders Ctr [facility] [address] [place] [phone] Celine Pond DO [address] [place] [address] [address] Scheduled Procedures Name Priority Associated Diagnoses Date/Ti [...] this encounter Medical Devices Implanted Type Area [id number] Software Engineer Device Identifier Shelf Expiration Date Model / Serial / Lot 3d Light Right Medium Mesh Implanted:Qty: 1 on 07/18/2015 by Damaso Medina MD at OR [facility] Right: Groin CR BARD : DAVOL 09/17/2019 [id number] / / [id number] documented as of this encounter Visit Diagnoses Diagnosis Nocturnal hypoxemia- Primary Hypoxemia documented in this encounter Advance Directives Healthcare Agents on File Name Relationship Healthcare Agent Relationship Communication Malinda Nitza Spouse Health Care Agen t (per Health Care Power of Dry Yard Worker document) Care Teams Geophysical Laboratory Supervisor Relationship Specialty Start Date End Date Godwin Salas MD [address] [place] [address] PCP - General Family Medicine 03/07/20 documented as of this encounter
--- OUTSIDE RECORDS SUMMARY | 2024-12-21 13:26 | External Medical Summary | Summary of Care ---
Author Name Unknown Organization [facility] Address [address] [place] [address] Phone [phone] Care Team Providers Care Head Of Product Name Role Phone Godwin Salas MD Primary Care Provider [phone] Reason for Visit * Reason Comments Follow Up Return pulm. Pulmona ry hypertension. Encounter Details Date Type Department Care Team (Late st Contact Info) Description 07/20/2024 12:00 PM EDT Office Visit Pulmonary Medicine, [facility] [address] [facility] [place] [address] Sanket Donovan MD [address] [facility] [place] [address] History of pulmonary embolism* Allergies Active Allergy Reactions Criticality Noted Date Comments Beta Adrenergic Blockers Psych complications Medium 07/24/2023 Naproxen High 10/12/2020 Other reaction(s): Anaphylaxis Naproxen Sodium Edema face/lips/tongue High 06/30/20 14 documented as of this encounter (statuses as of 07/20/2024) Medications Medication Sig Dispensed Refills Start Date End Date Status Colchicine 0.6 MG Oral Tablet take 2 tablets by mouth ONCE FOR 1 DOSE AT ONSET OF GOUT ATTACK AND 1 TABLET AN HOUR LATER Strength: 0.6 mg 90 Tablet 3 01/21/2023 Active Additional Information Patient not taking.Reported on 07/15/2024 Meloxicam 15 MG Oral Tablet Take 1 Tablet by mouth in the morning. 90 Tablet 3 01/21/2023 Active Additional Information Patient taking differently:15 mg OralDAILY PRN, Reported on 07/12/2023 Apixaban 5 MG Oral Tablet (Eliquis)Indications :Chronic thromboembolic disease (HCC) Take 1 Tablet by mouth in the morning and 1 Tablet before bedtime. 180 Tablet 3 07/24/2023 Active Lisinopril 20 MG Oral Tablet (Prinivil) take 1 tablet by mouth every morning 90 Tablet 3 09/27/2023 Active Furosemide 20 MG Oral Tablet (Lasix)Indications:C [...] the morning. 90 Tablet 1 05/14/2024 Active documented as of this encounter (statuses as of 07/20/2024) Active Problems Problem Noted Date Diagnosed Date [...] as of this encounter (statuses as of 07/20/2024) Resolved Problems Problem Noted Date Diagnosed Date [...] as of this encounter (statuses as of 07/20/2024) Immunizations Name Administration Dates Next Due COVID-19 [...] 65+ Yrs, IM (FLUAD) 07/26/2022,07/01/2020 Seasonal Influenza Virus Vac cine, Unspecified Formulation 08/07/2021,07/01/2020,10/02/2019,09/09,07/18/2018,07/29/2017,07/17/2016 ,06/24/2015,06/30/2014,08/14/2013,1006/2012,07/21/2011 Seasonal Influenza, High Dos e, Trivalent, PF, IM (Fluzone HD) 07/15/2024 Seasonal Influenza, PF, 6 M & above, IM , (FluLaval or Fluzone) 10/02/2019,09/09/2018 Seasonal Influenza, Quadriva lent Hd (Fluzone Hd) 07/24/2023,08/07/2021 Seasonal Influenza, Quadriva lent, No Preserve, IM 07/17/2016 Seasonal Influenza, Trivalen t, (IIV3), with Preserv, (Fluzone) 07/18/2018,07/29/2017,06/24/2015,06/30,08/14/2013,07/29/2012,07/21/2011 Seasonal Influenza, Trivalen t, Adjuvanted, 65+ YRS, [...] y our heating, water, or electric bill? No 07/24/2023 Is your family able to pay t he heat, water, or electric bill? (Household - for ages 0-17 years) Not on file 07/24/2023 Does your family have access to good internet? (Household - for ages 0-17 years) Not on file 07/24/2023 Employment Status Answer Date Recorded Are you unemployed or without regular income? No 07/24/2023 Does the household have a re gular source of income? (Household - for ages 0-17 years) Not on file 07/24/2023 Social Connections Answer Date Recorded How often do you feel lonely or isolated from th ose around you? Never 07/24/2023 Financial Resource Strain Answer Date R ecorded [...] Sign Reading Time Taken Comments Blood Pressure 116/88 07/20/2024 11:43 AM EDT Pulse - - Temperature 36.3 C (97.3 F) 07/20/2024 11:43 AM E DT Respiratory Rate 16 07/20/2024 11:43 AM EDT Oxygen Saturation 94% 07/20/2024 11:44 AM EDT ra-amb Inhaled Oxygen Concentration - - Weight 104.8 kg (231 lb) 07/20/2024 11:43 AM EDT Height 175.3 cm (5' 9") 07/20/2024 11:43 AM EDT Body Mass Index 34.11 07/20/2024 11:43 AM EDT documented in this encounter Progress Notes * Sanket Donovan MD - 07/20/2024 12:15 PM EDT Images from the original note were not included. 07/20/2024 Pulmonary Medicine, [address] [id number] Gonzalez Goddard 1955 male 69 year old Attending Physician Documentation: 69-year-old male, significant past medical history of calf DVT and pulmonary embolism December 2021, on maintenance Eliquis therapy , hypertension, gout, CHF, GERD, presents for follow-up pulmonary medicine evaluation. Patient describes compliance with Eliquis therapy, maintains physically active lifestyle, denies challenges with bleeding episodes. Currently maintained on diuretics for CHF. Not using any bronchodilator therapy. Had declined sleep medicine workup in the past. Physical examination is significant for class 2 throat, clear lung gupta, regular cardiac rhythm, no lower extremity edema and nonlateralizing Neuro examination. CT PE study August 2023 was negative for pulmonary emboli. 2D echocardiogram [place] August 2023 showed evidence of moderate pulmonary hypertension although PA pressure improved from 65 mmHg to [address] scan of chest from December 2021 showed Significant clot burden noted on both sides in subsegmentalpulmonary vasculature. Patient recalls history of calf swelling on right side leading up to pulmonary embolism episode. Maintenance anticoagulation due to high risk for chronic thromboembolic pulmonary hypertension. 2D echocardiogram [facility] August 2023 showed evidence of moderate pulmonary hypertension although PA pressure improved from 65 mmHg to 48 mmHg. Pulmonary clinic follow-up is recommended in 1 year. Meanwhile patient was advised to continue withEliquis therapy and contact the office with any change in symptoms status. Assessment 69-year-old male Twenty pack-year smoker quit 33 years ago History of PE/DVT December 2019 CTEPH Moderate pulmonary hypertension Chronic Eliquis Rx status Congestive Heart Failure Moderate pulmonary hypertension noted on echo 08/2023, PAP decreased from 68 mmhg (2019) to 48 mmHg on 08/2023 Echo HTN Gout Plan: Echo f/u 07/2024 C/w Eliquis maintenance AC Maintain Physical Activity Status F/u 1 year Follow Up: Return in about 1 year (around 07/20/2025) for Clinic Visit. | For: Clinic Visit | Check-out note: 69-year-old male Twenty pack-year smoker quit 33 years ago History of PE/DVT December 2019 CTEPH Moderate pulmonary hypertension Chronic Eliquis Rx status Congestive Heart Failure Moderate pulmonary hypertension noted on echo 08/2023, PAP decreased from 68 mmhg (2019) to 48 mmHg on 08/2023 Echo HTN Gout Plan: Echo f/u 07/2024 C/w Eliquis maintenance AC Maintain Physical Activity Status F/u 1 year Sanket Donovan MD Subjective CC: Chief Complaint Patient presents with Follow Up Return pulm. Pulmonary hypertension. HPI: Nursing Notes: Lisa Sequeira LPN 07/20/24 1154 Signed Chief Complaint Patient presents with Follow Up Return pulm. Pulmonary hypertension. Interm History/Respiratory Symptoms Cough: yes had COVID couple weeks ago. Hemoptysis: no Sinus Symptoms: no Hospitalizations: no ED Trips: no Triggers: no Nocturnal: sleep with head elevated CPAP/BiPAP/O2: CPAP. DME Supplier: [employer]. Flu Vaccine: 2023 Pneumovax: 2020 Prevnar: 2019 COVID 19: x7. MMRC Dyspnea Scale = 0 (I only get breathless with strenuous exercise) Objective Filed Vitals: 07/20/24 1143 07/20/24 1144 BP: 116/88 Resp: 16 Temp: 36.3 C (97.3 F) TempSrc: Tympanic SpO2: 94% 94% Weight: 104.8 kg (231 lb) Height: 1.753 m (5' 9") Exam: Const: No signs of acute distress present. Head/Face: Normal on inspection. Eyes: Conjunctivae clear. Pupils equal round and reactive to light. ENMT: Oropharynx: No erythema, exudate or masses. Posterior pharynx is normal. Neck: Supple and symmetric. Resp: Respiratory examination as outlined above CV: Rate is regular. Rhythm is regular. No heart murmur appreciated. Extremities: No edema of the lower limbs bilaterally. Skin: Skin is warm and dry. Neuro: Coordination normal. No involuntary movement. Psych: Patient's attitude is cooperative. Mood is normal. Affect is normal. Tests reviewed with the patient: No imaging results in the last 6 months Available Radiologic data was reviewed by me in PACS. The images were shown to the patient and findings were discussed with the patient. HOME MEDICATIONS: Allopurinol 300 MG Oral Tablet (Zyloprim) Pantoprazole Sodium 40 MG Oral Tablet Delayed Release (Protonix) Famotidine 40 MG Oral Tablet (Pepcid) Furosemide 20 MG Oral Tablet (Lasix) Lisinopril 20 MG Oral Tablet (Prinivil) Apixaban 5 MG Oral Tablet (Eliquis) Meloxicam 15 MG Oral Tablet Colchicine 0.6 MG Oral Tablet ROS: No reported history of Hemoptysis, Hematemesis, Melena No reported history of Dysuria, Hematuria, Flank Pain No reported history of chronic headache, seizures No reported history of Fall or trauma . No reported history of recent change in weight or appetite. Past Medical History: Diagnosis Date Acute deep vein thrombosis (DVT) of right peroneal vein (HCC) 01/19/2020 Acute idiopathic gout of foot 05/04/2019 At risk for obstructive sleep apnea 06/06/2023 CMC (carpometacarpal joint) sprains 12/10/2012 Sprain 1st CMC joint left hand. Dyslipidemia, goal LDL below 130 01/23/2012 ED (erectile dysfunction) of non-organic origin 11/04/2018 Erectile dysfunction 01/23/2012 Esophageal reflux Gouty arthropathy 11/14/2021 Hiatal hernia 05/15/2022 History of DVT (deep vein thrombosis) 10/04/2020 History of pulmonary embolism 10/04/2020 Hypertension goal BP (blood pressure) < 140/90 01/23/2012 Hyperuricemia 05/04/2019 Left anterior hemiblock 01/23/2012 Multiple subsegmental pulmonary emboli without acute cor pulmonale (HCC) 01/19/2020 Obesity, Class I, BMI 30.0-34.9 (see actual BMI) 01/23/2012 BERTRAM (obstructive sleep apnea) 02/04/2024 Paroxysmal atrial flutter (HCC) 06/06/2023 Pulmonary hypertension (HCC) 07/19/2020 Urticaria due to drug allergy 01/23/2012 Past Surgical History: Procedure Laterality Date COLONOSCOPY, DIAGNOSTIC (RECTUM) 10/02/2022 benign adenomatous polyp, diverticulosis, repeat 5 yrs / COLONOSCOPY FLEXIBLE PROXIMAL DIAGNOSTIC performed by Gonzalez Dumont MD at ENDOSCOPY [facility] EGD, FLEXIBLE, DIAGNOSTIC 10/02/2022 normal bx / ESOPHAGOGASTRODUODENOSCOPY (EGD), FLEXIBLE, TRANSORAL, DIAGNOSTIC performed by Gonzalez Bell MD at ENDOSCOPY [facility] LAPAROSCOPY; REPAIR INITIAL INGUINAL HERNIA Right 07/18/2015 LAPAROSCOPIC REPAIR INGUINAL HERNIA INITIAL performed by Damaso Medina MD at OR [facility] PARTIAL REMOVAL OF SHOULDER BONE 06/21/1990 Social History Socioeconomic History Marital status: Tobacco Use Smoking status: Former Current packs/day: 0.00 Average packs/day: 1 pack/day for 20.0 years (20.0 ttl pk-yrs) Types: Cigarettes Start date: 05/21/1971 Quit date: 05/21/1991 Years since quittin.1 Smokeless tobacco: Never Tobacco comments: no passive smoke Vaping Use Vaping status: Never Used Substance and Sexual Activity Alcohol use: Yes Alcohol/week: 7.0 standard drinks of alcohol Types: 7 12 oz of beer per week Comment: 10 drinks/week Drug use: No Social History Narrative [employer] INFORMATION ENVIRONMENTAL HISTORY: Type of Home: One Story Type of Heating System: Heat pump Air Conditioning: Yes Central Basement: Unfinished, Dampness and Dehumidifier Home have cockroaches: No Irritants in the home: Scented Candles Patient's bedroom location: Floor: first Type of santo: Carpeting Beds: Number: 1 Type of beds: Mattress and Box spring Pillows: Number: 1 Type of pillows: Synthetic (hypoallergenic, polyester) Bedroom contains: Bookshelves/Books and Plants Pets: 1 dog(s) Lives on a farm: No 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 Entered by: Kelechi Quesada MD 05/21/2011 No pets No mold Social Determinants of Health Financial Resource Strain: Low Risk (07/24/2023) Financial Resource Strain Do you have any trouble paying for your medications, or do you think you might in the future? (Adult - for ages 18 years and over): No Food Insecurity: No Food Insecurity (07/24/2023) Food Insecurity Do you need food for this week? (Adult - for ages 18 years and over): No Transportation Needs: No Transportation Needs (07/24/2023) Transportation Needs Do you have trouble getting a ride to medical visits or work? (Adult - for ages 18 years and over):Never True Social Connections: Socially Integrated (07/24/2023) Social Connections How often do you feel lonely or isolated from those around you? (Adult - for ages 18 years and over): Never Housing Stability: Low Risk (07/24/2023) Housing Stability Do you currently live in a correction or have no steady place to sleep at night? (Adult - for ages 18 years and over): No Do you think you are at risk of becoming homeless? (Adult - for ages 18 years and over): No Family History Problem Relation Name Age of Onset Lung Disorder Mother COPD (smoker) Gastro-intestinal disorder Father 69 diverticulosis No Known Problems Sister Niecy No Known Problems Brother Mark No Known Problems Brother Akash No Known Problems Brother Bill Review of patient's allergies indicates: Allergen Reactions Naproxen Other reaction(s): Anaphylaxis Naproxen Sodium Edema face/lips/tongue Beta Adrenergic Blockers Psych complications documented in this encounter Nursing Notes * Lisa Sequeira LPN - 07/20/2024 11:45 AM EDT Chief Complaint Patient presents with Follow Up Return pulm. Pulmonary hypertension. Interm History/Respiratory Symptoms Cough: yes had COVID couple weeks ago. Hemoptysis: no Sinus Symptoms: no Hospitalizations: no ED Trips: no Triggers: no Nocturnal: sleep with head elevated CPAP/BiPAP/O2: CPAP. DME Supplier: [employer]. Flu Vaccine: 2023 Pneumovax: 2020 Prevnar: 2019 COVID 19: x7. MMRC Dyspnea Scale = 0 (I only get breathless with strenuous exercise) documented in this encounter Plan of Treatment Upcoming Encounters Date Type Department Care Team (Late st Contact Info) Description 08/07/2024 11:00 AM EDT Office Visit [facility] Disorders [facility] [address] [facility] [place] [phone] Celine Pond DO [address] [facility] [place] [address] 08/07/2024 3:00 PM EDT Cardiac Studies Cardiac Studies, [facility] [address] [facility] [place] [address] 01/25/2025 3:30 PM EDT Office Visit Cardiology, [facility] [address] [facility] [place] [address] Catarina Michelle PA-C [address] [facility] [place] [address] 07/20/2025 12:40 PM EDT Office Visit Pulmonary Medicine, [facility] [address] [place] [address] Sanket Donovan MD [address] [place] [address] Scheduled Procedures Name Priority Associated Diagnoses Date/Ti me COLONOSCOPY FLEXIBLE PROXIMAL DIAGNOSTIC Recall History of colon polyps Health Maintenance Due Date Last Done Comments Hepatitis C Screening 1971 Cologuard 1998 Fecal Occult Blood Test 1998 Sigmoidoscopy 1998 AAA Screening 2018 Adult Wellness Visit 2019 Depression Screening 04/04/2022 04/04/2021 COVID-19 Vaccine ( season) 2024 10/07/2023, 08/02/2022, 03/05/2022, Additional history exists GFR 09/03/2024 09/03/2023, 07/21, 06/07/2023, Additional history exists DTap/Tdap Vaccines (3 - [...] this encounter Medical Devices Implanted Type Area Director Telehealth Device Identifier Shelf Expiration Date Model / Serial / Lot 3d Light Right Medium Mesh Implanted:Qty: 1 on 07/18/2015 by Damaso Medina MD at OR [facility] Right: Groin CR BARD : DAVOL 09/17/2019 [id number] / / [id number] documented as of this encounter Visit Diagnoses Diagnosis History of pulmonary embolism- Primary Personal history of pulmonary embolism documented in this encounter Advance Directives Healthcare Agents on File Name Relationship Healthcare Agent Relationship Communication Malinda Nitza Spouse Health Care Agen marialuisa (per Health Care Power of Legal Billing Clerk document) Care Teams Head Of Product Relationship Specialty Start Date End Date Godwin Salas MD [address] [place] [address] PCP - General Family Medicine 03/07/20 documented as of this encounter
--- OUTSIDE RECORDS SUMMARY | 2024-12-21 13:26 | External Medical Summary ---
Author Name Unknown Address Unknown Organization [id number]:[facility] [address] [place] [id number] Laboratory Report Ordering Provider Test Date Status LILIAN STANFORD 07/24/2024 08:02:52 Final Exclude Heart Failure: <300 pg/mL
Diagnose Heart Failure:
Age <50 yr: >450 pg/mL
50-75 yr: >900 pg/mL
>75 yr: >1800 pg/mL
GFR is 30-59 mL/min: >1200 pg/mL or Age- adjusted values
GFR <30 mL/min: do not use, not reliable

Prognostic threshold: 1000 pg/mL Observation Date Value Abnormality Reference (Units ) Status BNP, Pro-hormone 07/24/2024 08:02:52 52 <30 0 (pg/mL) Final Performing Location [facility] [address] [place] [id number]
--- OUTSIDE RECORDS SUMMARY | 2024-12-21 13:26 | External Medical Summary | Summary of Care ---
Author Name Unknown Organization [facility] Address [address] [facility] [place] [address] Phone [phone] Care Team Providers Care Guest Experience Manager Name Role Phone Godwin Salas MD Primary Care Provider [phone] Reason for Referral * Precert (Diagnostic Medical) (Within 10 days (routine)) - Authorized Specialty Diagnoses / Procedures Referred By Contac t Referred To Contact Cardiac Studies Diagnoses S/P ablation of atrial flutter Chronic right-sided heart failure (HCC) Chronic diastolic CHF (congestive heart failure) (HCC) Procedures ECHO, COMPLETE (2D), TRANS-THORACIC Catarina Michelle PA-C [address] [place] [id number] Referral ID Status Reason Start Date Expiration Date V isits Requested Visits Authorized [id number] Authorized Precert 07/15/2024 999 999 Reason for Visit * Reason Onset Date Comments Follow Up Medication Administration 07/15/2024 Flu an d/or Pneumo Inj Encounter Details Date Type Department Care Team (Late st Contact Info) Description 07/15/2024 11:30 AM EDT Office Visit Cardiology, [facility] [address] [place] [id number] Catarina Michelle PA-C [address] [place] [id number] S/P ablation of atrial flutter*; Chronic right-sided heart failure (HCC); Chronic diastolic CHF (congestive heart failure) (HCC); Need for prophylactic vaccination and inoculation against influenza; Pulmonary hypertension (HCC); Paroxysmal atrial flutter (HCC) Allergies Active Allergy Reactions Criticality Noted Date Comments Beta Adrenergic Blockers Psych complications Medium 07/24/2023 Naproxen High 10/12/2020 Other reaction(s): Anaphylaxis Naproxen Sodium Edema face/lips/tongue High 06/30/20 14 documented as of this encounter (statuses as of 07/31/2024) Medications Medication Sig Dispensed Refills Start Date [...] 3 Active Furosemide 20 MG Oral Tablet (Lasix)Indications [...] 4 Active Allopurinol 300 MG Oral Tablet (Zyloprim)Indicati ons:Gouty arthropathy Take 1 Tablet by mouth in the morning. 90 Tablet 1 4 Active Meloxicam 15 MG Oral Tablet Take 1 Tablet by mouth in the morning. 90 Tablet 3 3 024 Discontinued(Re fill) Apixaban 5 MG Oral Tablet (Eliquis)Indicatio ns:Chronic thromboembolic disease (HCC) Take 1 Tablet by mouth in the morning and 1 Tablet before bedtime. 180 Tablet 3 3 024 Discontinued documented as of this encounter (statuses as of 07/31/2024) Active Problems Problem Noted Date Diagnosed Date [...] as of this encounter (statuses as of 07/31/2024) Resolved Problems Problem Noted Date Diagnosed Date [...] as of this encounter (statuses as of 07/31/2024) Immunizations Name Administration Dates Next Due COVID-19 [...] 0 05/21/1971 - 05/21/1991 Smokeless Tobacco: Never Tobacco Cessation:Counseling Given: Not Answered Comments:no passive smoke Alcohol Use Standard Drinks/Week [...] No 07/24/2023 Does the household have a [facility] source of income? (Household - for ages [...] Sign Reading Time Taken Comments Blood Pressure 126/80 07/15/2024 11:33 AM EDT Pulse 66 07/15/2024 11:33 AM EDT Temperature - - Respiratory Rate - - Oxygen Saturation 97% 07/15/2024 11:33 AM EDT Inhaled Oxygen Concentration - - Weight 103.9 kg (229 lb) 07/15/2024 11:33 AM EDT Height - - Body Mass Index 33.82 02/04/2024 4:25 PM EDT documented in this encounter Progress Notes * Ana Goodman CMA - 07/15/2024 12:09 PM EDT PRE - ADMINISTRATION DOCUMENTATION Are you experiencing any cold symptoms or fever? No Have you had Guillain-[place] Syndrome (an illness that causes paralysis) within the last 6 weeks? No Have you had the flu shot in the past? YES Have you ever had a reaction to the flu shot? Argenis Goodman CMA, 07/15/2024 12:09 PM Immunization Administration Documentation Time Out Procedure Performed: Yes Patient Identified (Ask Name/Date of ): Yes Does the patient have a fever greater than 101 degrees today? No Patient allergic to latex? No VFC Stock: No Immunization(s) verified: Yes, Immunization Name: Flu, VIS Sheet(s) given: Yes Verified Side and Site: Yes Verified Shot(s) with Parent(s)/Patient: Yes * Catarina Michelle PA-C - 07/15/2024 11:39 AM EDT Images from the original note were not included. Cardiology F/U: Chief Complaint: History of atrial flutter S/P ablation; History of RV failure; post pulmonary embolus, pulmonary hypertension; SUBJECTIVE: Gonzalez Goddard is a 69 year old male who presents today for routine cardiology follow-up. Last clinic evaluation approximately 6 months ago with the undersigned. In the interim he followed with EP, Dr. Cornejo/KENN Trimble. Primary ultrasound tech is Dr. Rice. 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 GERD 6. Right heart failure with Past moderate to severe elevation pulmonary pressures - improving on last echo Follows with pulmonology yearly 7. New onset atrial flutter RVR in setting of acute lyme infection May 2023. Failed to tolerate metoprolol. S/P CTI ablation 08/07/2023, redo 09/18 Patient presents today feeling relatively well. Unfortunately he had COVID approximately 2 weeks ago. Shortness of breath slowly improved. Cough resolved. Over the last few days, patient reported increased abdominal bloating. He admitted to not taking diuretic on a regular basis. He took a dose earlier this week and noted improved dyspnea with exertional activities and improvedbloating. No chest pain, shortness of breath, palpitations, dizziness, syncope or near syncope. No orthopnea,PND, or increased lower extremity edema. No fever, chills, cough, hematochezia, melena, or hemoptysis. Review of Systems: See HPI for pertinent positives. All others negative, other than those noted in HPI. Patient Active Problem List Diagnosis Organic erectile dysfunction Gastroesophageal reflux disease with esophagitis without hemorrhage HTN, goal below 130/80 Pulmonary hypertension (HCC) History of DVT (deep vein thrombosis) History of pulmonary embolism Chronic thromboembolic disease (HCC) Chronic diastolic CHF (congestive heart failure) ([facility]) Obesity, Class I, BMI 30.0-34.9 (see actual BMI) Gouty arthropathy Hiatal hernia Chronic right-sided heart failure (HCC) Paroxysmal atrial flutter ([facility]) S/P ablation of atrial flutter BERTRAM (obstructive sleep apnea) Social History Tobacco Use Smoking status: Former Current packs/day: 0.00 Average packs/day: 1 pack/day for 20.0 years (20.0 ttl pk-yrs) Types: Cigarettes Start date: 05/21/1971 Quit date: 05/21/1991 Years since quittin.1 Smokeless tobacco: Never Tobacco comments: no passive smoke Vaping Use Vaping status: Never Used Substance Use Topics Alcohol use: Yes Alcohol/week: 7.0 standard drinks of alcohol Types: 7 12 oz of beer per week Comment: 10 drinks/week Drug use: No Review of patient's allergies indicates: Allergen Reactions Naproxen Other reaction(s): Anaphylaxis Naproxen Sodium Edema face/lips/tongue Beta Adrenergic Blockers Psych complications Current Outpatient Medications Medication Sig Dispense Refill Meloxicam 15 MG Oral Tablet Take 1 Tablet by mouth in the morning. (Patient taking differently: Take 1 Tablet by mouth daily as needed.) 90 Tablet 3 Apixaban 5 MG Oral Tablet (Eliquis) Take 1 Tablet by mouth in the morning and 1 Tablet before bedtime. 180 Tablet 3 Lisinopril 20 MG Oral Tablet (Prinivil) take 1 tablet by mouth every morning 90 Tablet 3 Furosemide 20 MG Oral Tablet (Lasix) take 1 tablet by mouth once daily ON SATURDAY, SATURDAY, AND SATURDAY 39 Tablet 3 Famotidine 40 MG Oral Tablet (Pepcid) take 1 tablet by mouth once daily AT 8 PM 90 Tablet 2 Pantoprazole Sodium 40 MG Oral Tablet Delayed Release (Protonix) Take 1 Tablet by mouth in the morning. 90 Tablet 3 Allopurinol 300 MG Oral Tablet (Zyloprim) Take 1 Tablet by mouth in the morning. 90 Tablet 1 Colchicine 0.6 MG Oral Tablet take 2 tablets by mouth ONCE FOR 1 DOSE AT ONSET OF GOUT ATTACK AND 1TABLET AN HOUR LATER Strength: 0.6 mg (Patient not taking: Reported on 07/15/2024) 90 Tablet 3 No current facility-administered medications for this visit. OBJECTIVE/PHYSICAL EXAMINATION: BP 126/80 | Pulse 66 | Wt 103.9 kg (229 lb) | SpO2 97% | BMI 33.82 kg/m | BSA 2.25 m Wt Readings from Last 3 Encounters: 07/15/24 103.9 kg (229 lb) 02/28/24 103.4 kg (227 lb 14.4 oz) 02/04/24 99.3 kg (219 lb) General: Well-developed age-appropriate male no acute distress Head: normocephalic, no masses, lesions, tenderness or abnormalities Eyes: conjunctiva are pink and non-injected, sclera clear Throat: clear Nares: without discharge Neck: supple, no adenopathy, no bruits, normal jugular venous pulse, no hepatojugular reflux, no carotid bruits Chest: normal shape and normal respiratory effort Lungs: faint bibasilar rales right base Cardiac Exam: - regular rate & rhythm, no murmur, gallop or rub - normal S-1, normal S-2 Abdomen: abdomen soft, non-tender, no abnormal masses, no hepatosplenomegaly, no abdominal bruit, no femoral bruit Musculoskeletal: no gait disturbance, no joint inflammation, no deforming arthritis Extremities: no edema, no cyanosis, pulses intact 2+/4 Neuro: grossly normal exam Data: EKG performed today and reviewed personally: Normal sinus rhythm Left axis deviation Nonspecific intraventricular conduction block Nonspecific T wave abnormality Abnormal ECG When compared with ECG of 11-Oct-2023 08:53, No significant change was found EKG reviewed from Sep 2023: Normal sinus rhythm Left axis deviation Nonspecific intraventricular conduction block T wave abnormality, consider inferolateral ischemia Abnormal ECG When compared with ECG of 03-SEP-2023 13:44, Sinus rhythm has replaced Atrial flutter Vent. rate has decreased BY 36 BPM Nonspecific intraventricular conduction block has replaced Right bundle branch block Echo report reviewed from May 2023 at [facility]: ZIO monitor report reviewed dated Jun 2023: CONCLUSIONS: Duration: 7 days Atrial Flutter occurred continuously (100% burden), ranging from 44-163 bpm (avg of 124 bpm). Isolated VEs were rare (<1.0%), and no VE Couplets or VE Triplets were present. Symptoms reported during atrial flutter with rapid ventricular response and heart rates up to 151 beats per minute. Echo report reviewed dated Jul 2022: Interpretation Summary The primary indication after review was deemed appropriate and the examination was performed. Normal LV chamber size with mild concentric LVH. Normal LV systolic function without regional wall motion abnormality. Calculated LV ejection Fraction = 63% (bi-plane method of discs). Grade I diastolic dysfunction. The right ventricular cavity size is enlarged (basal dimension > 4.2 cm RV apical 4 chamber view). The right ventricular systolic function is normal as assessed by tricuspid annular plane systolic excursion (TAPSE) (normal >1.7 cm). No significant valvular pathology. Mild right atrial enlargement. Moderate left atrial enlargement. Echo report reviewed dated July 2022: Interpretation Summary The primary indication after review was deemed appropriate and the examination was performed. Normal LV chamber size with mild concentric LVH. Normal LV systolic function without regional wall motion abnormality. Calculated LV ejection Fraction = 63% (bi-plane method of discs). Grade I diastolic dysfunction. The right ventricular cavity size is enlarged (basal dimension > 4.2 cm RV apical 4 chamber view). The right ventricular systolic function is normal as assessed by tricuspid annular plane systolic excursion (TAPSE) (normal >1.7 cm). No significant valvular pathology. Mild right atrial enlargement. Moderate left atrial enlargement EKG performed April 2022: Normal sinus rhythm Right bundle branch block Left anterior fascicular block Bifascicular block Abnormal ECG When compared with ECG of 11-DEC-2021 13:09, Right bundle branch block has replaced Nonspecific intraventricular conduction block EKG performed August 07, 2021: Normal sinus rhythm with right bundle-branch 64 beats per minute Echocardiogram August 02, 2021 The LV wall thickness is mildly increased (concentric). The left ventricular wall motion is normal. The qualitative LV ejection fraction is 60-64% (normal). The right ventricle is moderately dilated. The right ventricular systolic function is mildly reduced. Severe pulmonary hypertension is present. The estimated pulmonary artery systolic pressure is 60-65 mm Hg. The aortic root is borderline enlarged with diameter of 3.8 cm. ASSESSMENT: 68 year old male ICD-10-CM 1. S/P ablation of atrial flutter Z98.890 Z86.79 2. Chronic right-sided heart failure (HCC) I50.812 3. Chronic diastolic CHF (congestive heart failure) ([facility]) I50.32 4. Need for prophylactic vaccination and inoculation against influenza Z23 5. Pulmonary hypertension ([facility]) I27.20 6. Paroxysmal atrial flutter ([facility]) I48.92 PLAN: Patient doing well S/P flutter ablation without recurrent atrial arrhythmias. Now of diltiazem. Intolerant of beta rivas. Chronic anticoagulation will be needed given history of PE/DVT. We discussed his intermittent dyspnea/abdominal bloating. Improved with regular diuretic usage. He has only been taking as needed. Recommend resuming furosemide 20 mg M// and an additional tab as needed. Repeat echo to reassess LV/RV function, pulm pressures The patient is to continue all current medications as listed above. No changes were made at today'svisit. Recommend regular aerobic exercise. [place] goal would be minimum of 30 minutes done daily. Exercise can be done in divided time periods if needed. Told to avoid extremes in temperature. Patient is being evaluated in the cardiology office for ongoing care/risk management for RHF; Atrial flutter; HTN. I spent a total of 30 minutes on the date of service in preparation, delivery, and documentation ofthe care provided to Gonzalez Goddard excluding any time spent in the performance of separatelybilled services. The patient agrees to the above plan and will call with additional questions or concerns. ER with all emergencies advised. Follow-up: Return in about 6 months (around 01/12/2025). | Check-out note: Schedule echo [address] Dwayne Michelle PA-C Department of Cardiology This chart was completed in part utilizing [employer] Speech Voice Recognition Software. Grammatical errors, random word insertions, prounoun errors, and incomplete sentences are an occasional consequence of this system due to software limitations, ambient noise, and hardware issues. Any formal questions or concerns about the content, text, or information contained within the body of this dictation should be directly addressed to the provider for clarification. documented in this encounter Procedure Notes * Tarun Rice MD - 07/15/2024 11:44 AM EDTAssociated Order(s): EKG REASON FOR STUDY: post aflutter ablation;post aflutter ablation CONCLUSIONS: Normal sinus rhythm Left axis deviation Nonspecific intraventricular conduction block Nonspecific T wave abnormality Abnormal ECG When compared with ECG of 11-Oct-2023 08:53, No significant change was found Ventricular Rate: 61 Atrial Rate: 61 PA Interval: 170 QRS Duration: 128 QT/QTc: 448/450 ms P-R-T Chamberlain: 60 : -50 : -38 degrees documented in this encounter Nursing Notes * Ruchi Eason CMA - 07/15/2024 11:31 AM EDT Examination Room: 6 Name: Gonzalez Goddard Date of : (1955) Reason for Visit: 6m Interim Hospitalization(s): none Problems/Concerns: denied Chest Pain/SOB: denied My [facility] is a way you can talk to your provider online through e-mail. Would you like to sign up? I can activate it for you? ALREADY ACTIVE Patient was instructed to not get up on the exam table until directed and assisted by their provider; patient is to remain seated in the chair/ wheelchair/ exam table for fall prevention and safety reasons. Patient is aware to have assistance to step down off exam table with personnel. Patient voiced full comprehension of instructions. documented in this encounter Plan of Treatment Upcoming Encounters Date Type Department Care Team (Late st Contact Info) Description 08/07/2024 11:00 AM EDT Office Visit [facility] Disorders Ctr [facility] [address] [facility] [place] [phone] Celine Pond DO [address] [facility] [place] [address] 08/07/2024 3:00 PM EDT Cardiac Studies Cardiac Studies, [facility] [address] [facility] [place] [address] 01/25/2025 3:30 PM EDT Office Visit Cardiology, [facility] [address] [facility] [place] [address] Catarina Michelle PA-C [address] [facility] [place] [address] 07/20/2025 12:40 PM EDT Office Visit Pulmonary Medicine, [facility] [address] [facility] [place] [address] Sanket Donovan MD [address] [place] [address] Scheduled Orders Name Type Priority Associated Diagnoses Orde r Schedule ECHO, COMPLETE (2D), TRANS-THORACIC Echocardiology Routine S/P ablation of atrial flutter Chronic right-sided heart failure (HCC) Chronic diastolic CHF (congestive heart failure) (HCC) Expected: 07/15/2024 (Approximate), Expires: 07/15/2025 Scheduled Procedures Name Priority Associated Diagnoses Date/Ti [...] this encounter Medical Devices Implanted Type Area Laser Beam Machine Operator Device Identifier Shelf Expiration Date Model / Serial / Lot 3d Light Right Medium Mesh Implanted:Qty: 1 on 07/18/2015 by Damaso Medina MD at OR [facility] Right: Groin CR BARD : DAVOL 09/17/2019 [id number] / / [id number] documented as of this encounter Procedures Procedure Name Priority Date/Time Associated Diagnosis Comments PA ECG ROUTINE ECG W/LEAST 12 LDS W/I&R Routine 07/15/2024 11:44 AM EDT S/P ablation of atrial flutter documented in this encounter Results * MAGNESIUM (07/24/2024 8:02 AM EDT) Magnesium 2.4 1.5 - 2.6 mg/dL 07/25/2024 3:45 AM EDT [place] [facility] [place] Venous blood specimen / Unknown Venipuncture / Unknown 07/24/2024 8:02 AM EDT 07/24/2024 8:02 AM EDT Catarina Michelle PA-C LAB BLOOD ORDIsak TRACY Performing Organization Address [facility] Co de Phone Number LABORATORY [address] [address] * BNP, NT-PRO (07/24/2024 8:02 AM EDT) [facility] BNP, NT-Pro 52 <300 pg/mL 07/25/2024 3:45 AM EDT [facility] [place] Venous blood specimen / Unknown Venipuncture / Unknown 07/24/2024 8:02 AM EDT 07/24/2024 8:02 AM EDT Narrative [facility] [place] [place] - 07/25/2024 3:45 AM EDT Exclude Heart Failure: <300 pg/mL Diagnose Heart Failure: Age <50 yr: >450 pg/mL 50-75 yr: >900 pg/mL >75 yr: >1800 pg/mL GFR is 30-59 mL/min: >1200 pg/mL or Age-adjusted values GFR <30 mL/min: do not use, not reliable Prognostic threshold: 1000 pg/mL Catarina Michelle PA-C LAB BLOOD LEILANI TRACY Performing Organization Address [facility] de Phone Number LABORATORY [address] [address] * LIPID PANEL WITH DIRECT LDL IF TG IS HIGH (07/24/2024 8:02 AM EDT) [facility] Triglycerides 156 <=174 mg/dL 07/25/2024 3:45 AM EDT [facility] [place] Comment: Triglyceride Reference Ranges (mg/dL): <150 Acceptable 150-174 Borderline high 175-499 High >=500 Very high Cholesterol 195 <200 mg/dL 07/25/2024 3:45 AM EDT [facility] [place] Comment: Total Cholesterol Reference Ranges (mg/dL): <200 Desirable 200-239 Borderline high >=240 High HDL Cholesterol 42 >39 mg/dL 3:45 AM EDT [facility] [place] Comment: HDL Cholesterol Reference Ranges (mg/dL): >=60 High (Desirable) <50 Low (Undesirable) For Females <40 Low (Undesirable) For Males Non-HDL Cholesterol 153 <=159 mg/dL 07/25/2024 3:45 AM EDT [facility] [place] Comment: Non-HDL Cholesterol Reference Range (mg/dL): <100 Target level for high risk ASCVD patient <130 Optimal for general population 130-159 Near optimal for general population 160-189 Borderline High 190-219 High >=220 Very High LDL Cholesterol 122 <=129 mg/dL 07/25/2024 3:45 AM EDT [facility] [place] Comment: LDL Cholesterol Reference Ranges (mg/dL): <70 Target level for high risk ASCVD patient <100 Optimal for general population 100-129 Near optimal for general population 130-159 Borderline high 160-189 High >=190 Very high Blood Venous blood specimen / Unknown Venipuncture / Unknown 07/24/2024 8:02 AM EDT 07/24/2024 8:02 AM EDT Catarina Michelle PA-C LAB BLOOD LEILANI TRACY [facility] Organization Address City/State/ZIP Co de Phone Number [facility] [place] [address] [place] [address] * COMPREHENSIVE METABOLIC PANEL (07/24/2024 8:02 AM EDT) Pathologist [facility] BUN 18 6 - 20 mg/dL 07/25/2024 3:45 AM EDT [facility] [place] CREATININE 1.1 0.6 - 1.2 mg/dL 07/25/2024 3:45 AM EDT [facility] [place] EGFR 73 >=60 mL/min 07/25/2024 3:45 AM EDT [facility] [place] Comment:eGFR is calculated b ased on the CKD-EPI 2020 equation. SODIUM 143 135 - 146 mmol/L 07/25/2024 3:45 AM EDT [facility] [place] POTASSIUM 5.1 3.5 - 5.1 mmol/L 07/25/2024 3:45 AM EDT LAB[facility]ATORY [facility] CHLORIDE 107 98 - 107 mmol/L 07/25/2024 3:45 AM EDT LAB[facility]ATORY [facility] CO2 24 22 - 32 mmol/L 07/25/2024 3:45 AM EDT LAB[facility]ATORY [facility] ANION GAP 12 7 - 15 mmol/L 07/25/2024 3:45 AM EDT LAB[facility] GLUCOSE 89 70 - 120 mg/dL 07/25/2024 3:45 AM EDT LAB[facility] Albumin 4.2 3.8 - 5.0 g/dL 07/25/2024 3:45 AM EDT LAB[facility]ATORY [facility] AST 36 10 - 50 U/L 07/25/2024 3:45 AM EDT LAB[facility]ATORY [facility] Alkaline Phosphatase 87 35 - 130 U/L 07/25/2024 3:45 AM EDT LAB[facility]ATORY [facility] Bilirubin, Total 0.6 <=1.2 mg/dL 07/25/2024 3:45 AM EDT LAB[facility]ATORY [facility] CALCIUM 9.0 8.4 - 10.2 mg/dL 07/25/2024 3:45 AM EDT LAB[facility]ATORY [facility] Protein 6.7 6.0 - 8.3 g/dL 07/25/2024 3:45 AM EDT LAB[facility]ATORY [facility] ALT 36 10 - 50 U/L 07/25/2024 3:45 AM EDT LAB[facility]ATORY [facility] Blood Venous blood specimen / Unknown Venipuncture / Unknown 07/24/2024 8:02 AM EDT 07/24/2024 8:02 AM EDT Catarina Michelle PA-C LAB BLOOD LEILANI TRACY [facility] Organization Address City/State/ZIP Co de Phone Number [facility] [place] [address] [place] [address] * (ABNORMAL) CBC (07/24/2024 8:02 AM EDT) WBC 6.82 4.00 - 10.80 K/uL 07/24/2024 11:40 PM EDT LAB[facility]ATORY [facility] RBC 4.77 4.50 - 5.25 M/uL 07/24/2024 11:40 PM EDT LAB[facility]ATORY [facility] HGB 15.9 14.0 - 16.8 g/dL 07/24/2024 11:40 PM EDT LAB[facility]ATORY [facility] HCT 48.9(H) 40.0 - 48.4 % 07/24/2024 11:40 PM EDT LABORATORY [facility] MCV 102.5 82.0 - 99.5 fL 07/24/2024 11:40 PM EDT LAB[facility]ATORY [facility] MCH 33.3 27.0 - 34.0 pg 07/24/2024 11:40 PM EDT LABORATORY [facility] MCHC 32.5 32.0 - 36.0 g/dL 07/24/2024 11:40 PM EDT LABORATORY [facility] RDW 14.2 11.5 - 15.5 % 07/24/2024 11:40 PM EDT LABORATORY GM PLT 179 140 - 400 K/uL 07/24/2024 11:40 PM EDT LABORATORY GM MPV 12.2 6.6 - 11.1 fL 07/24/2024 11:40 PM EDT [facility] [place] nRBCs 0 <=0 /100 WBCs 07/24/2024 11:40 PM EDT [facility]ORY [facility] [place] Blood Venous blood specimen / Unknown Venipuncture / Unknown 07/24/2024 8:02 AM EDT 07/24/2024 8:02 AM EDT Catarina Michelle PA-C LAB BLOOD [facility] Organization Address City/State/ZIP Co de Phone Number [place]ATORY [facility] [place] [address] [place] [address] * EKG (07/15/2024 11:44 AM EDT) 07/15/2024 11:4 4 AM EDT Narrative Procedure Note Tarun Rice MD - 07/15/2024 11:44 AM EDT REASON FOR STUDY: post aflutter ablation;post aflutter ablation CONCLUSIONS: Normal sinus rhythm Left axis deviation Nonspecific intraventricular conduction block Nonspecific T wave abnormality Abnormal ECG When compared with ECG of 11-Oct-2023 08:53, No significant change was found Ventricular Rate: 61 Atrial Rate: 61 PA Interval: 170 QRS Duration: 128 QT/QTc: 448/450 ms P-R-T Chamberlain: 60 : -50 : -38 degrees Catarina Michelle PA-C [facility] documented in this encounter Visit Diagnoses Diagnosis S/P ablation of atrial flutter- Primary Other postprocedural status Chronic right-sided heart failure (HCC) Congestive heart failure, unspecified Chronic diastolic CHF (congestive heart failure) (HCC) Chronic diastolic heart failure Need for prophylactic vaccination and inoculation against influenza Pulmonary hypertension (HCC) Other chronic pulmonary heart diseases Paroxysmal atrial flutter (HCC) Atrial flutter documented in this encounter Advance Directives Healthcare Agents on File Name Relationship Healthcare Agent Relationship Communication Malinda Goddard Spouse Health Care Agen t (per Health Care Power of Service Center Representative document) Care Teams Guest Experience Manager Relationship Specialty Start Date End Date Godwin Salas MD [address] [place] [address] PCP - General Family Medicine 03/07/20 documented as of this encounter"
--- OUTSIDE RECORDS SUMMARY | 2024-12-21 13:26 | External Medical Summary | Summary of Care ---
Author Name Unknown Organization [facility] Address [address] [place] [address] Phone [phone] Care Team Providers Care Geriatric Nurse Assistant Name Role Phone Godwin Salas MD Primary Care Provider [phone] Reason for Visit * Reason Onset Date Comments Test Results 07/31/2024 Encounter Details Date Type Department Care Team (Late st Contact Info) Description 07/31/2024 Telephone Cardiology, [facility] [address] [place] [address] Catarina Michelle PA-C [address] [place] [address] Test Results Allergies Active Allergy Reactions Criticality [...] Telephone Encounter - Jeffy Kelley LPN - 07/31/2024 3:39 PM EDT Sent patient a [employer] message to make aware. ----- Message from Catarina Michelle sent at 07/31/2024 3:38 PM EDT ----- Labs reviewed. CBC is normal. No anemia Stable renal function and electrolytes Potassium is upper limit of normal. If he is taking any over the counter potassium supplements, have him stop. No MVI with potassium Normal liver function. Cholesterol borderline elevated. Improve diet/exercise. No medication changes at this time documented in this encounter Plan of Treatment Upcoming Encounters Date Type Department Care Team (Late st Contact Info) Description 08/07/2024 11:00 AM EDT Office Visit Sleep Disorders Ctr [facility] [address] [place] [phone] Celine Pond, [address] [place] [address] 08/07/2024 3:00 PM EDT Cardiac Studies Cardiac Studies, [facility] [address] [place] [address] 01/25/2025 3:30 PM EDT Office Visit Cardiology, [facility] [address] [place] [address] Catarina Michelle PA-C [address] [place] [address] 07/20/2025 12:40 PM EDT Office Visit Pulmonary Medicine, [facility] [address] [place] [address] Sanket Donovan MD [address] [place] [address] Scheduled Procedures Name Priority Associated Diagnoses Date/Ti [...] this encounter Medical Devices Implanted Type Area Ict Support Technicians Device Identifier Shelf Expiration Date Model / Serial / Lot 3d Light Right Medium Mesh Implanted:Qty: 1 on 07/18/2015 by Damaso Medina MD at OR [facility] Right: Groin CR BARD : DAVOL 09/17/2019 [id number] / / [id number] documented as of this encounter Advance Directives Healthcare Agents on File Name Relationship Healthcare Agent Relationship Communication Malinda Goddard Spouse Health Care Agen t (per Health Care Power of Programmer Business document) Care Teams Geriatric Nurse Assistant Relationship Specialty Start Date End Date Godwin Salas MD [address] [place] [address] PCP - General Family Medicine 03/07/20 documented as of this encounter
--- OUTSIDE RECORDS SUMMARY | 2024-12-21 13:26 | External Medical Summary | Summary of Care ---
Author Name Unknown Organization [facility] Address [address] [facility] [place] [address] Phone [phone] Care Team Providers Care Machine Stoppage Frequency Checker Name Role Phone Timmy Salas MD Primary Care Provider [phone] Reason for Visit * Reason Onset Date Comments Medication Refill 07/20/2024 Encounter Details Date Type Department Care Team (Late st Contact Info) Description 07/20/2024 Refill Family Practice [facility] [address] [place] [address] Timmy Salas MD [address] [place] [address] Allergies Active Allergy Reactions Criticality Noted Date Comments Beta Adrenergic Blockers Psych complications Medium 07/24/2023 Naproxen High 10/12/2020 Other reaction(s): Anaphylaxis Naproxen Sodium Edema face/lips/tongue High 06/30/20 14 documented as of this encounter (statuses as of 07/21/2024) Medications Medication Sig Dispensed Refills Start Date End Date Status Colchicine 0.6 MG Oral Tablet take 2 tablets by mouth ONCE FOR 1 DOSE AT ONSET OF GOUT ATTACK AND 1 TABLET AN HOUR LATER Strength: 0.6 mg 90 Tablet 3 01/21/2023 Active Additional Information Patient not taking.Reported on 07/15/2024 Apixaban 5 MG Oral Tablet (Eliquis)Indication s:Chronic thromboembolic disease (HCC) Take 1 Tablet by mouth in the morning and 1 Tablet before bedtime. 180 Tablet 3 07/24/2023 Active Lisinopril 20 MG Oral Tablet (Prinivil) take 1 tablet by mouth every morning 90 Tablet 3 09/27/2023 Active Furosemide 20 MG Oral Tablet (Lasix)Indications: [...] 04/02/2024 Active Allopurinol 300 MG Oral Tablet (Zyloprim)Indicatio ns:Gouty arthropathy Take 1 Tablet by mouth in the morning. 90 Tablet 1 05/14/2024 Active Meloxicam 15 MG Oral Tablet (Mobic) Take 1 Tablet by mouth in the morning. 90 Tablet 1 07/21/2024 Active Meloxicam 15 MG Oral Tablet Take 1 Tablet by mouth in the morning. 90 Tablet 3 01/21/2023 4 Discontinu ed(Refill) documented as of this encounter (statuses as of 07/21/2024) Active Problems Problem Noted Date Diagnosed Date [...] as of this encounter (statuses as of 07/21/2024) Resolved Problems Problem Noted Date Diagnosed Date [...] as of this encounter (statuses as of 07/21/2024) Immunizations Name Administration Dates Next Due COVID-19 [...] encounter Miscellaneous Notes * Telephone Encounter - Jay Hollingsworth RPh - 07/21/2024 1:16 PM EDTSigned Prescriptions: Disp Refills Meloxicam 15 MG Oral Tablet (Mobic) 90 Tab*1 Sig: Take 1 Tabletby mouth in the morning.Authorizing Provider: TIMMY SALAS User: JAY HOLLINGSWORTH- documented in this encounter Plan of Treatment Upcoming Encounters Date Type Department Care Team (Late st Contact Info) Description 07/24/2024 8:00 AM EDT [facility] [address] [place] [phone] Luis Abarca [facility] [address] [place] [address] 08/07/2024 11:00 AM EDT Office Visit Sleep Disorders Ctr Tani [facility], [place] [address] [place] [phone] Celine Pond DO [address] [place] [address] 08/07/2024 3:00 PM EDT Cardiac Studies Cardiac Studies, [facility] [place] [address] [place] [address] 01/25/2025 3:30 PM EDT Office Visit Cardiology, [facility] [address] [facility] [place] [address] Catarina Michelle, [place]HEL[place] [address] [place] [address] 07/20/2025 12:40 PM EDT Office Visit Pulmonary Medicine, [facility] [address] [facility] [place] [address] Sanket Donovan MD [address] [place] [address] Scheduled Procedures Name Priority Associated Diagnoses Date/Ti [...] this encounter Medical Devices Implanted Type Area Lecturer Of Portuguese Device Identifier Shelf Expiration Date Model / Serial / Lot 3d Light Right Medium Mesh Implanted:Qty: 1 on 07/18/2015 by Damaso Medina MD at [facility] Right: Groin CR BARD : DAVOL 09/17/2019 [id number] / / [id number] documented as of this encounter Advance Directives Healthcare Agents on File Name Relationship Healthcare Agent Relationship Communication Malinda Goddard Spouse Health Care Agen t (per Health Care Power of Executive Chef document) Care Teams Machine Stoppage Frequency Checker Relationship Specialty Start Date End Date Timmy Salas MD [address] [place] [address] PCP - General Family Medicine 03/07/20 documented as of this encounter
--- OUTSIDE RECORDS SUMMARY | 2024-12-21 13:26 | External Medical Summary | Summary of Care ---
Author Name Unknown Organization [facility] Address [address] [place] [address] Phone [phone] Care Team Providers Care Patients Transporter Name Role Phone Godwin Salas MD Primary Care Provider [phone] Reason for Visit * Reason Comments Outpatient Testing Encounter Details Date Type Department Care Team (Late st Contact Info) Description 07/24/2024 8:00 AM EDT Laboratory Laboratory [place] [address] [facility] [place] [phone] Luis Abarca [facility] [address] [facility] [place] [address] S/P ablation of atrial flutter; Chronic right-sided heart failure (HCC); Chronic diastolic CHF (congestive heart failure) (HCC) Allergies Active Allergy Reactions Criticality Noted Date Comments Beta Adrenergic Blockers Psych complications Medium 07/24/2023 Naproxen High 10/12/2020 Other reaction(s): Anaphylaxis Naproxen Sodium Edema face/lips/tongue High 06/30/20 14 documented as of this encounter (statuses as of 07/24/2024) Medications Medication Sig Dispensed Refills Start Date End Date Status Colchicine 0.6 MG Oral Tablet take 2 tablets by mouth ONCE FOR 1 DOSE AT ONSET OF GOUT ATTACK AND 1 TABLET AN HOUR LATER Strength: 0.6 mg 90 Tablet 3 01/21/2023 Active Additional Information Patient not taking.Reported on 07/15/2024 Apixaban 5 MG Oral Tablet (Eliquis)Indications :Chronic [...] the morning. 90 Tablet 1 07/21/2024 Active documented as of this encounter (statuses as of 07/24/2024) Active Problems Problem Noted Date Diagnosed Date [...] as of this encounter (statuses as of 07/24/2024) Resolved Problems Problem Noted Date Diagnosed Date [...] as of this encounter (statuses as of 07/24/2024) Immunizations Name Administration Dates Next Due COVID-19 [...] AM EDT Office Visit Sleep Disorders Ctr [facility] [address] [place] [phone] Celine Pond DO [address] [place] [address] 08/07/2024 3:00 PM EDT Cardiac Studies Cardiac Studies, [facility] [address] [facility] [place] [address] 01/25/2025 3:30 PM EDT Office Visit Cardiology, [facility] [address] [facility] [place] [address] Catarina Michelle, PA-[place] [address] [facility] [place] [address] 07/20/2025 12:40 PM EDT Office Visit Pulmonary Medicine, [facility] [address] [facility] [place] [address] Sanket Donovan MD [address] [place] [address] Pending Results Name Type Priority Associated Diagnoses Date /Time CBC Lab Routine S/P ablation of atrial flutter Chronic right-sided heart failure (HCC) Chronic diastolic CHF (congestive heart failure) ([facility]) 07/24/2024 8:02 AM EDT COMPREHENSIVE METABOLIC PANEL Lab Routine S/P ablation of atrial flutter Chronic right-sided heart failure (HCC) Chronic diastolic CHF (congestive heart failure) ([facility]) 07/24/2024 8:02 AM EDT LIPID PANEL WITH DIRECT LDL IF TG IS HIGH Lab Routine S/P ablation of atrial flutter Chronic right-sided heart failure (HCC) Chronic diastolic CHF (congestive heart failure) (HCC) 07/24/2024 8:02 AM EDT BNP, NT-PRO Lab Routine S/P ablation of atrial flutter Chronic right-sided heart failure (HCC) Chronic diastolic CHF (congestive heart failure) (HCC) 07/24/2024 8:02 AM EDT MAGNESIUM Lab Routine S/P ablation of atrial flutter Chronic right-sided heart failure (HCC) Chronic diastolic CHF (congestive heart failure) (HCC) 07/24/2024 8:02 AM EDT Scheduled Procedures Name Priority Associated Diagnoses Date/Ti [...] this encounter Medical Devices Implanted Type Area Sports Complex Attendant Device Identifier Shelf Expiration Date Model / Serial / Lot 3d Light Right Medium Mesh Implanted:Qty: 1 on 07/18/2015 by Damaso Medina MD at OR [facility] Right: Groin CR BARD : DAVOL 09/17/2019 [id number] / / [id number] documented as of this encounter Visit Diagnoses Diagnosis S/P ablation of atrial flutter Other postprocedural status Chronic right-sided heart failure (HCC) Congestive heart failure, unspecified Chronic diastolic CHF (congestive heart failure) (HCC) Chronic diastolic heart failure documented in this encounter Advance Directives Healthcare Agents on File Name Relationship Healthcare Agent Relationship Communication Malinda Goddard Spouse Health Care Agen t (per Health Care Power of Assistant Distribution Manager document) Care Teams Patients Transporter Relationship Specialty Start Date End Date Godwin Salas MD [address] [place] [address] PCP - General Family Medicine 03/07/20 documented as of this encounter
--- OUTSIDE RECORDS SUMMARY | 2024-12-21 13:27 | External Medical Summary | Summary of Care ---
Author Name Unknown Organization [facility] Address [address] [facility] [address] Phone [phone] Care Team Providers Care Applied Exercise Physiologist Name Role Phone Godwin Salas MD Primary Care Provider [phone] Encounter Details Date Type Department Care Team (Late st Contact Info) Description 07/17/2024 Orders Only PATIENT PORTAL DO NOT DELETE THIS DEPT USED BY [place] [id number] Allergies Active Allergy Reactions Criticality Noted Date Comments Beta Adrenergic Blockers Psych complications Medium 07/24/2023 Naproxen High 10/12/2020 Other reaction(s): Anaphylaxis Naproxen Sodium Edema face/lips/tongue High 06/30/20 14 documented as of this encounter (statuses as of 07/17/2024) Medications Medication Sig Dispensed Refills Start Date [...] as of this encounter (statuses as of 07/17/2024) Active Problems Problem Noted Date Diagnosed Date [...] as of this encounter (statuses as of 07/17/2024) Resolved Problems Problem Noted Date Diagnosed Date [...] as of this encounter (statuses as of 07/17/2024) Immunizations Name Administration Dates Next Due COVID-19 [...] 12:00 PM EDT Office Visit Pulmonary Medicine, [facility] [address] [place] [address] Sanket Donovan MD [address] [place] [address] 08/07/2024 11:00 AM EDT Office Visit Sleep Disorders Ctr [facility] [address] [facility] [place] [phone] Celine Pond DO [address] [place] [address] 08/07/2024 3:00 PM EDT Cardiac Studies Cardiac Studies, [facility] [address] [facility] [place] [address] 01/25/2025 3:30 PM EDT Office Visit Cardiology, [facility] [address] [facility] [place] [address] Catarina Michelle, PAFarzad [address] [facility] [place] [address] Scheduled Procedures Name Priority Associated Diagnoses Date/Ti [...] this encounter Medical Devices Implanted Type Area Clay Caster Device Identifier Shelf Expiration Date Model / Serial / Lot 3d Light Right Medium Mesh Implanted:Qty: 1 on 07/18/2015 by Damaso Medina MD at OR [facility] Right: Groin CR BARD : DAVOL 09/17/2019 [id number] / / [id number] documented as of this encounter Advance Directives Healthcare Agents on File Name Relationship Healthcare Agent Relationship Communication Malinda Goddard Spouse Health Care Agen t (per Health Care Power of Still Runner document) Care Teams Applied Exercise Physiologist Relationship Specialty Start Date End Date Godwin Salas MD [address] [place] [address] PCP - General Family Medicine 03/07/20 documented as of this encounter
--- NOTE | 2024-12-21 14:43 | Cardiology Consultation ---
Date of Consultation December 21, 2024 Assessment & Plan (1) Atrial flutter with rapid ventricular response: (2) Acute Lyme disease: (3) History of pulmonary embolism: (4) Pulmonary HTN: Plan 69-year-old male admitted with recurrent, symptomatic atrial flutter with rapid ventricular response. History of CTI ablation x 2 as noted above, underlying severe pulmonary hypertension with moderate TR, and moderate right ventricular dilatation. Current dysrhythmia possibly precipitated by acute Lyme infection. Compliant with chronic anticoagulation. Recommend treatment of acute Lyme with IV Rocephin. Add intravenous diltiazem infusion to improve rate control. Consider external direct-current cardioversion in the next 24-48 hours if patient remains in atrial flutter. (Spontaneously converted to sinus rhythm May 2023 with antibiotic therapy). Repeat resting 2D transthoracic echocardiogram in a.m. 12/22/2024. Continue anticoagulation with Eliquis uninterrupted. Continue outpatient doses lisinopril, and furosemide. CPAP QHS for treatment of BERTRAM. History of Present Illness Reason for Consultation: Atrial flutter with 2 1 conduction Requesting Physician: Dr. Norma De Jesus Attending Physician: Dr. Norma De Jesus History of Present Illness 69-year-old male presents emergency department due to persistent tachycardia, dyspnea on exertion, burning in the back with mild nausea. Patient first noted symptoms on Saturday when his home pulse oximeter recorded elevated heart rate. History of atrial flutter status post ablation x 2. Also carries history of bilateral PE on chronic Eliquis. He received 120 mg of oral diltiazem in ER without improvement of heart rate. History of acute Lyme disease May 2023 with subsequent development of atrial flutter. Patient spontaneously converted to sinus rhythm with antibiotic therapy during hospitalization. Currently resting comfortably. Notes dyspnea with minimal exertion. Exercises regularly however has been limited over the past few days. Denies chest discomfort or heaviness. No lightheadedness, dizziness, syncope, or near syncope. Chronically anticoagulated due to history of PE. Compliant with Eliquis. History: 1. Acute B/L pulmonary emboli diagnosed in December 2019, now on chronic Eliquis 2. Hypertension 3. Evaluation for chest pain , dyspnea August 2017 , Sep 2020 with diagnostic cardiac catheterization demonstrating angiographically normal coronaries, normal LV systolic function and normal left end-diastolic pressure with elevated pulmonary pressures 4. 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 5. GERD 6. Right heart failure with Past moderate to severe elevation pulmonary pressures - improving on last echo Follows with pulmonology yearly 7. New onset atrial flutter RVR in setting of acute lyme infection May 2023. Failed to tolerate metoprolol. S/P CTI ablation 08/07/2023, redo 09/18/23 Allergies Allergy/AdvReac Type Severity Reaction Status Date / Time naproxen Allergy Severe Anaphylaxis Verified 09/18/23 07:38 metoprolol AdvReac Mild panic Unverified 12/21/24 14:35 attack Home Medications Medication Instructions Recorded Confirmed Type pantoprazole 40 mg tablet,delayed 40 mg PO QAM 01/13/20 12/21/24 History release apixaban 5 mg tablet (Eliquis) 5 mg PO BID #0 tabs 10/13/20 12/21/24 Rx allopurinol 300 mg tablet 300 mg PO QAM 06/03/23 12/21/24 History colchicine 0.6 mg tablet 0.6 - 1.2 mg PO DAILY PRN GOUT 06/03/23 12/21/24 History ATTACK famotidine 40 mg tablet 40 mg PO PM 06/03/23 12/21/24 History furosemide 20 mg tablet 20 mg PO DAILY 06/03/23 12/21/24 History meloxicam 15 mg tablet 15 mg PO DAILY PRN Pain 06/03/23 12/21/24 History lisinopril 10 mg tablet 10 mg PO QAM #30 tabs 06/04/23 12/21/24 Rx Patient History Medical History History of DVT (deep vein thrombosis) Bilateral pulmonary embolism completed 6 months Eliquis therapy Left anterior fascicular block RBBB Surgical History History of cardiac cath 08/2017 - normal coronaries H/O inguinal hernia repair Family History Mother COPD (chronic obstructive pulmonary disease) Social History Smoking Status: Former smoker Tobacco Type: Cigarettes Second Hand Exposure: No; Do You Dip or Chew Tobacco: No; Hx Alcohol Use: Yes Alcohol type: beer Alcohol Intake Frequency Comment: 2 beers/day Hx Substance Use: No Preferred Language: Danish Communication Ability: Effective Appeals Specialist Required: No Beliefs That Will Affect Care: None Current Living Situation: Spouse Feels Safe at Home: Yes Assistive Devices: None Review of Systems Review of Systems: All systems reviewed & are unremarkable except as noted in Subjective Physical Exam Constitutional: well nourished; no acute distress Respiratory: normal respiratory effort; no respiratory distress and no retractions Auscultation: no crackles, no rales, no rhonchi and no wheezes Cardiovascular: Rate/Rhythm: regular rate, regular rhythm and + tachycardic Heart Sounds: normal S1 and normal S2 Vessels: no JVD and no carotid bruit Extremities: no edema Gastrointestinal (Abdomen): Inspection/Auscultation: abdomen normal to inspection; abdomen not distended Percussion/Palpation: abdomen soft; abdomen nontender, no guarding and abdomen not rigid Neurologic: CN's II-XI intact bilaterally and moves all extremities Psychiatric: A+Ox3, euthymic affect Results & Data Vital Signs (Past 12 Hours) Vital Signs Temp Pulse Resp BP BP Pulse Ox O2 Del Method 12/21/24 14:25 103 H 12/21/24 14:03 104 H 20 96 Room Air 12/21/24 14:00 132/93 12/21/24 13:36 105 H 14 94 Room Air 12/21/24 13:30 127/96 12/21/24 13:15 105 H 21 96 Room Air 12/21/24 13:00 131/97 12/21/24 12:54 106 H 14 95 Room Air 12/21/24 12:33 98 H 20 95 Room Air 12/21/24 12:30 126/99 12/21/24 12:25 141/98 H 12/21/24 12:24 101 H 19 96 Room Air 12/21/24 12:14 141/98 H 12/21/24 12:03 101 H 13 98 Room Air 12/21/24 11:06 107 H 13 95 Room Air 12/21/24 10:45 107 H 22 95 Room Air 12/21/24 10:38 109 H 12/21/24 10:10 36.3 C L 108 H 18 116/81 97 Room Air Laboratory Results Cardiac Enzymes 12/21/24 Range/Units 10:22 AST 28 (13-39) U/L Troponin I High Sens 4.6 (0-20) pg/ml B-Natriuretic Peptide 38 (0-100) pg/ml Coagulation 12/21/24 Range/Units 10:22 PT 11.3 (9.0-12.0) Seconds B-Natriuretic Peptide 38 (0-100) pg/ml CBC 12/21/24 Range/Units 10:22 WBC 7.77 (4.8-10.8) K/ul RBC 5.34 (4.70-6.10) M/uL Hgb 17.4 (14.0-18.0) g/dl Hct 51.4 (42.0-52.0) % Plt Count 182 (130-400) K/uL Neut # (Auto) 4.32 (1.40-6.50) K/uL Lymph # (Auto) 2.11 (1.20-3.40) K/uL [place] # (Auto) 1.06 H (0.11-0.59) K/uL Eos # (Auto) 0.15 (0.00-0.50) K/uL Baso # (Auto) 0.07 (0.00-0.20) K/uL Comprehensive Metabolic Panel 12/21/24 Range/Units 10:22 Sodium 142 (136-145) mmol/L Potassium 4.3 (3.5-5.1) mmol/L Chloride 106 (98-107) mmol/L Carbon Dioxide 30 (21-32) mmol/L BUN 20 (6-23) mg/dl Creatinine 1.18 (0.6-1.4) mg/dl Glucose 64 L (70-99(Fasting)) mg/dl Calcium 9.7 (8.6-10.3) mg/dl AST 28 (13-39) U/L ALT 28 (7-52) U/L Alkaline Phosphatase 77 (34-104) U/L Total Protein 7.4 (6.0-8.3) gm/dl Albumin 4.2 (3.4-5.0) gm/dl Intake and Output 12/21/24 12/21/24 12/21/24 06:59 14:59 22:59 Other: Weight 105.1 kg Weight Measurement Method Chair Scale Patient Weight 12/22/24 06:59 Weight 105.1 kg Diagnostic Findings 2D echocardiogram report 08/07/2024: The examination is adequate to evaluate the referral indication. The LV wall thickness is mildly increased (concentric). The left ventricular wall motion is normal. The qualitative LV ejection fraction is 65-69% (normal). The right ventricular cavity is mildly dilated. The right ventricular systolic function is qualitatively normal. Moderate tricuspid regurgitation is present. Severe pulmonary hypertension is present. The estimated pulmonary artery systolic pressure is 80 mm Hg. Pulmonary hypertension was not detected at the time of the previous echo dated 08/07/2022. Compared to the report of the previous study dated 08/01/2021, the pulmonary artery systolic pressure is estimated to be 60-65 millimeters Hg at that time.
[2024-12-21] MEDS: dilTIAZem HCl 5 MG/ML 5 ML VIAL IV STA (15:26)
[2024-12-21] MEDS: dilTIAZem HCL 125 MG in DEXTROSE 5% 100 ML IV SCH (15:38)
[2024-12-21] MEDS: PANTOprazole 40 MG/10 ML SYR IV ONE (15:52)
[2024-12-21] MEDS: FAMOTIDINE 20MG IV PUSH 20 MG/5 ML SYR IV STA (15:52)
[2024-12-21] MEDS: cefTRIAXone SODIUM 2,000 MG/50 ML BAG IV STA (15:53)
--- NOTE | 2024-12-21 16:02 | History & Physical Report ---
Date of Service December 21, 2024 Assessment & Plan (1) Atrial flutter with rapid ventricular response: (2) Acute Lyme disease: (3) Pulmonary HTN: (4) HTN (hypertension): Plan Patient is a 69-year-old gentleman presents to the emergency room with recurrent paroxysmal atrial flutter with rapid ventricular response suspect may be due to acute Lyme disease infection. Patient is a high risk for decompensated arrhythmia. Requires IV medications, specialty consultation and monitoring. Admit to a monitored setting in the hospital Continue IV Rocephin for treatment of acute Lyme, can consider transitioning to doxycycline on discharge. Patient has responded to this treatment in the past Consult cardiology for ongoing management a flutter and ongoing evaluation of possible cardioversion While at the bedside, patient did seem to respond to IV diltiazem push. Heart rates dropped below 100. Will continue diltiazem IV drip. Start oral diltiazem for rate control titrate drip to off as able Update echocardiogram Continue anticoagulation with Eliquis Monitor electrolytes and renal function Continue other home medications as ordered at bedside agreeable with plan of care as well History of Present Illness Chief Complaint: Abnormal heart rhythm Primary Care Provider: Godwin Salas MD Patient is 69-year-old gentleman with known history of paroxysmal atrial flutter status post ablation and second cardioversion and 2022. Presents to the emergency room with decreased stamina and feeling as if his heart is racing. In the emergency room noted to be in atrial fibrillation. Patient initially was given some Cardizem which did not really respond to. He has responded well to Cardizem in the past. He has not responded to beta-blockers in the past. Subsequently cardiology consultation was obtained in the ED to consider cardioversion. I initially consented the patient for cardioversion, however, his Lyme IgM came back positive. With this new information it was decided to treat him for Lyme, continue to control his rate with Cardizem and and see if he does not convert on his own in the next 24 hours or so. Patient was referred to our service to help manage his in hospital stay. Time my evaluation the patient was feeling better at rest. His heart rate was around 105. He states that he believes that he probably went into atrial flutter on Saturday. He states that he works out regularly and during his workout on Saturday he had severe fatigue to the point where he really could hardly finish his workout. During the weekend at rest he did not have symptoms but with any type of activity seem to have easy fatigue. Also experiencing a lot more heartburn and indigestion. He reports he does have a hiatal hernia. His appetite has been fine. No changes in his bowels or bladder. He did report having some joint pains kind of progressing and worsening throughout the weekend but no fever or chills. No cough or cold symptoms. No new swelling in his hands arms legs or feet. Patient does report he has a very high risk for gemma Lyme. He has a forearm. 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 He is certainly not surprised that he has recurrent Lyme disease. Patient's initial diagnosis of atrial flutter was in the setting of an acute Lyme infection as well. He was treated adequately at that time with doxycycline. He then subsequently underwent an ablation in July 2023. He needed repeat cardioversion in August 2023. He reports that he has been in sinus rhythm since then. Allergies Allergy/AdvReac Type Severity Reaction Status Date / Time naproxen Allergy Severe Anaphylaxis Verified 09/18/23 07:38 metoprolol AdvReac Mild panic Unverified 12/21/24 14:35 attack Home Medications Medication Instructions Recorded Confirmed Type pantoprazole 40 mg tablet,delayed 40 mg PO QAM 01/13/20 12/21/24 History release apixaban 5 mg tablet (Eliquis) 5 mg PO BID #0 tabs 10/13/20 12/21/24 Rx allopurinol 300 mg tablet 300 mg PO QAM 06/03/23 12/21/24 History colchicine 0.6 mg tablet 0.6 - 1.2 mg PO DAILY PRN GOUT 06/03/23 12/21/24 History ATTACK famotidine 40 mg tablet 40 mg PO PM 06/03/23 12/21/24 History furosemide 20 mg tablet 20 mg PO DAILY 06/03/23 12/21/24 History meloxicam 15 mg tablet 15 mg PO DAILY PRN Pain 06/03/23 12/21/24 History lisinopril 10 mg tablet 10 mg PO QAM #30 tabs 06/04/23 12/21/24 Rx Past Med/Surg History Problem List Atrial fibrillation with RVR (Acute) Atrial flutter with rapid ventricular response (Acute) History of pulmonary embolism (Acute) Acute Lyme disease (Acute) Atrial flutter DVT prophylaxis Hypertensive urgency Pulmonary HTN (Acute) Chest pain (Acute) Barretts esophagus HTN (hypertension) Dyslipidemia Medical History History of DVT (deep vein thrombosis) Bilateral pulmonary embolism completed 6 months Eliquis therapy Left anterior fascicular block RBBB Surgical History History of cardiac cath 08/2017 - normal coronaries H/O inguinal hernia repair Family History Mother COPD (chronic obstructive pulmonary disease) Social History Smoking Status: Former smoker Tobacco Type: Cigarettes Second Hand Exposure: No; Do You Dip or Chew Tobacco: No; Hx Alcohol Use: Yes Alcohol type: beer Alcohol Intake Frequency Comment: 2 beers/day Hx Substance Use: No Preferred Language: Pashto Communication Ability: Effective Event Promoter Required: No Beliefs That Will Affect Care: None Current Living Situation: Spouse Feels Safe at Home: Yes Assistive Devices: None Review of Systems Review of Systems: Pertinent positive and negative review of systems as mentioned in the HPI Physical Exam Physical Exam: Constitutional: Alert, nontoxic, no acute distress HEENT: Mucous membranes moist. Sclera clear Neck: Soft, no adenopathy Lungs: Clear to auscultation, decreased, no wheezes rales or rhonchi CV: S1-S2, tachycardic, irregular, no significant murmur Abdomen: Soft, nontender, nondistended Extremities: No significant edema Musculoskeletal: No significant joint tenderness Neuro: No focal deficits Psych: Cooperative, normal mood Results & Data Results & Data Vital Signs (Past 12 Hours) Vital Signs Temp Pulse Resp BP BP Pulse Ox O2 Del Method 12/21/24 14:25 103 H 12/21/24 14:03 104 H 20 96 Room Air 12/21/24 14:00 132/93 12/21/24 13:36 105 H 14 94 Room Air 12/21/24 13:30 127/96 12/21/24 13:15 105 H 21 96 Room Air 12/21/24 13:00 131/97 12/21/24 12:54 106 H 14 95 Room Air 12/21/24 12:33 98 H 20 95 Room Air 12/21/24 12:30 126/99 12/21/24 12:25 141/98 H 12/21/24 12:24 101 H 19 96 Room Air 12/21/24 12:14 141/98 H 12/21/24 12:03 101 H 13 98 Room Air 12/21/24 11:06 107 H 13 95 Room Air 12/21/24 10:45 107 H 22 95 Room Air 12/21/24 10:38 109 H 12/21/24 10:10 36.3 C L 108 H 18 116/81 97 Room Air Diagnostic Findings Reviewed imaging, laboratory and diagnostic studies. Pertinent findings as below. Personally reviewed chest x-ray images, no infiltrative process, mild cardiomegaly Personally reviewed EKG, atrial flutter with rapid ventricular response CBC within normal ranges Electrolytes within normal range Creatinine 1.18 Troponin 4.6 BNP 38 TSH 2.4 Urinalysis unremarkable Lyme IgM, IgG and screening test positive Reviewed echocardiogram from 2022, normal ejection fraction 55 to 60%, mild pulmonary hypertension Code Status & VTE Plan VTE Prophylaxis Plan VTE Prophylaxis will be ordered: Yes
[2024-12-21] MEDS ORDERED: MAGNESIUM HYDROXIDE SUSP 30 ML UDC PO PRN (16:41)
[2024-12-21] MEDS ORDERED: ALUMINUM/MAGNESIUM SUSP 30 ML UDC PO PRN (16:41)
[2024-12-21] MEDS ORDERED: ONDANSETRON INJ 2 MG/ML 2 ML VIAL IV PRN (16:41)
[2024-12-21] MEDS: STAT IV Infusion **Titration per Protocol STA (16:43)
[2024-12-21] MEDS: dilTIAZem HCL 30 MG TAB PO SCH (18:42)
[2024-12-21] MEDS: FAMOTIDINE 40 MG TABLET PO SCH (20:22)
[2024-12-21] MEDS: APIXABAN 5 MG TABLET PO SCH (20:22)
[2024-12-22] MEDS: ACETAMINOPHEN 325 MG TAB PO PRN (00:51)
[2024-12-22 08:12] LABS: BUN Creatinine Ratio 12.8 (10-20); Calcium 8.6 mg/dl (8.6-10.3); Creatinine Clr Calc Pharmacy 64.4 ml/min; Magnesium 1.9 mg/dl (1.7-2.4); Phosphorus 2.6 mg/dl (2.5-4.9); Potassium 4.1 mmol/L (3.5-5.1)
[2024-12-22] MEDS: lisinopril 10 MG TAB PO SCH (08:57)
[2024-12-22] MEDS: allopurinoL 300 MG TAB PO SCH (08:57)
[2024-12-22] MEDS: FUROSEMIDE 20 MG TAB PO SCH (08:57)
[2024-12-22] MEDS: PANTOprazole 40 MG TAB PO SCH (08:57)
--- NOTE | 2024-12-22 12:49 | Hospitalist Progress Note ---
Date of Service December 22, 2024 Assessment & Plan (1) Atrial flutter with rapid ventricular response: (2) Acute Lyme disease: (3) Pulmonary HTN: (4) HTN (hypertension): Plan Mr. Freire 69-year-old male admitted with recurrent, symptomatic atrial flutter with rapid ventricular response, HTN, GERD, gout, pulmonary hypertension, PE/DVT in December 2019 anticoagulated on Eliquis, prior lyme disease admitted for a flutter with RVR. #Atrial flutter with RVR #Hx of CTI ablation similar presentation 2022 s/p cardioversion started on diltazem, however, noted to be bradycardic overnight plan for DCCV today Starting on Cardizem 120mg for d/c continue on dilitzem 60 short acting continue eliquis #Acute lyme disease Continue IV Rocephin plan transition to doxycycline on discharge #HTN #Severe Pulm HTN continue home medications DVT eliquis Admission and Anticipated Discharge Date Admission Date: December 21, 2024 Subjective NAEO reports feeling about the same since admission--reports a pressure in his chest, not a "fluttering" states that he otherwise has no other symptoms Physical Exam Constitutional: WD/WN, vitals as above Respiratory: normal respiratory effort, lungs clear to auscultation Cardiovascular: irregular tachycardic Gastrointestinal (Abdomen): normal bowel sounds, soft, nontender, no hepatosplenomegaly Musculoskeletal: no cyanosis or clubbing, extremities motor strength 5/5 Results & Data Results & Data Vital Signs (Past 12 Hours) Vital Signs Temp Pulse Pulse Resp BP Pulse Ox O2 Del Method 12/22/24 11:38 36.5 C 85 16 116/73 97 Room Air 12/22/24 08:06 59 L 12/22/24 07:24 36.5 C 78 17 120/75 94 Room Air 12/22/24 06:24 57 L 12/22/24 05:45 55 L 12/22/24 03:29 36.3 C L 67 18 125/79 96 Room Air Laboratory Results [facility] 12/22/24 07:01 Sodium 140 Potassium 4.1 Chloride 108 H Carbon Dioxide 30 BUN 16 Creatinine 1.25 Glucose 87 Calcium 8.6 Medications Administered Home Medications Medication Instructions Recorded Confirmed Last Taken pantoprazole 40 mg tablet,delayed 40 mg PO QAM 01/13/20 12/21/24 12/21/24 release apixaban 5 mg tablet (Eliquis) 5 mg PO BID #0 tabs 10/13/20 12/21/24 12/21/24 allopurinol 300 mg tablet 300 mg PO QAM 06/03/23 12/21/24 12/21/24 colchicine 0.6 mg tablet 0.6 - 1.2 mg PO DAILY PRN GOUT 06/03/23 12/21/24 Unknown ATTACK famotidine 40 mg tablet 40 mg PO PM 06/03/23 12/21/24 06/02/23 furosemide 20 mg tablet 20 mg PO DAILY 06/03/23 12/21/24 12/21/24 meloxicam 15 mg tablet 15 mg PO DAILY PRN Pain 06/03/23 12/21/24 12/21/24 lisinopril 10 mg tablet 10 mg PO QAM #30 tabs 06/04/23 12/21/24 12/21/24 Active Medications Generic Name Dose Route Start Last Admin Trade Name Freq PRN Reason Stop Dose Admin Acetaminophen 650 mg 12/21/24 16:41 12/22/24 00:51 Acetaminophen 325 Mg Tab PO 01/20/25 16:40 650 mg Q4H PRN Administration Pain or Fever Allopurinol 300 mg 12/22/24 09:00 12/22/24 08:57 Allopurinol 300 Mg Tab PO 01/21/25 08:59 300 mg QAM NU Administration Apixaban 5 mg 12/21/24 21:00 12/22/24 08:57 Apixaban 5 Mg Tablet PO 01/20/25 20:59 5 mg BID NU Administration Diltiazem HCl 30 mg 12/21/24 18:00 12/22/24 06:24 Diltiazem Hcl 30 Mg Tab PO 01/20/25 17:59 Not Given Q6H NU Famotidine 40 mg 12/21/24 20:00 12/21/24 20:22 Famotidine 40 Mg Tablet PO 01/20/25 19:59 40 mg DAILY@2000 NU Administration Furosemide 20 mg 12/22/24 09:00 12/22/24 08:57 Furosemide 20 Mg Tab PO 01/21/25 08:59 20 mg DAILY NU Administration Diltiazem HCl 125 mg/ Dextrose 125 mls @ 5 mls/hr 12/21/24 15:15 12/21/24 22:51 IV 01/20/25 15:14 0 mg/hr .Q24H NU 0 mls/hr Titration Protocol 5 MG/HR Lisinopril 10 mg 12/22/24 09:00 12/22/24 08:57 Lisinopril 10 Mg Tab PO 01/21/25 08:59 10 mg QAM NU Administration Pantoprazole Sodium 40 mg 12/22/24 09:00 12/22/24 08:57 Pantoprazole 40 Mg Tab PO 01/21/25 08:59 40 mg QAM NU Administration
--- NOTE | 2024-12-22 12:50 | Cardiology Progress Note ---
Date of Service December 22, 2024 Assessment & Plan (1) Atrial flutter with rapid ventricular response: (2) Acute Lyme disease: (3) History of pulmonary embolism: (4) Pulmonary HTN: Plan 69-year-old male admitted with recurrent, symptomatic atrial flutter with rapid ventricular response. History of CTI ablation x 2 as noted above, underlying severe pulmonary hypertension with moderate TR, and moderate right ventricular dilatation. Recommendations: * External direct-current cardioversion, patient agreeable * Anesthesia consult placed * Continue oral short acting diltiazem * Transition to Cardizem CD 120 mg daily at discharge * IV diltiazem discontinued * Preliminary review of bedside echocardiogram demonstrates preserved LV function, moderate RV dilatation, with estimated systolic pulmonary pressure 41 mmHg * Continue oral anticoagulation uninterrupted * CPAP nightly for treatment of BERTRAM * Possible discharge today after cardioversion Adi Fowler DO, [facility] Admission and Anticipated Discharge Date Admission Date: December 21, 2024 Subjective 69-year-old male seen examined at the bedside. Feeling better today. Heart rate improved with diltiazem. IV diltiazem infusion discontinued. Elevated heart rate with activity. Received 2 doses of Rocephin for treatment of acute Lyme. Review of Systems Review of Systems: All systems reviewed & are unremarkable except as noted in Subjective Physical Exam Constitutional: well nourished; no acute distress Respiratory: normal respiratory effort; no respiratory distress and no retractions Auscultation: no crackles, no rales, no rhonchi and no wheezes Cardiovascular: Rate/Rhythm: regular rate, regular rhythm and + tachycardic Heart Sounds: normal S1 and normal S2 Vessels: no JVD and no carotid bruit Extremities: no edema Gastrointestinal (Abdomen): Inspection/Auscultation: abdomen normal to inspection; abdomen not distended Percussion/Palpation: abdomen soft; abdomen nontender, no guarding and abdomen not rigid Neurologic: CN's II-XI intact bilaterally and moves all extremities Psychiatric: A+Ox3, euthymic affect Results & Data Vital Signs (Past 12 Hours) Vital Signs Temp Pulse Pulse Resp BP Pulse Ox O2 Del Method 12/22/24 11:38 36.5 C 85 16 116/73 97 Room Air 12/22/24 08:06 59 L 12/22/24 07:24 36.5 C 78 17 120/75 94 Room Air 12/22/24 06:24 57 L 12/22/24 05:45 55 L 12/22/24 03:29 36.3 C L 67 18 125/79 96 Room Air Laboratory Results Comprehensive Metabolic Panel 12/22/24 Range/Units 07:01 Sodium 140 (136-145) mmol/L Potassium 4.1 (3.5-5.1) mmol/L Chloride 108 H (98-107) mmol/L Carbon Dioxide 30 (21-32) mmol/L BUN 16 (6-23) mg/dl Creatinine 1.25 (0.6-1.4) mg/dl Glucose 87 (70-99(Fasting)) mg/dl Calcium 8.6 (8.6-10.3) mg/dl Intake and Output 12/21/24 12/22/24 12/22/24 22:59 06:59 14:59 Intake Total 890.250 / 1040.250 150 / 1040.250 Balance 890.250 / 1040.250 150 / 1040.250 Intake: IV 890.250 / 890.250 Sodium Chloride 0.9% 1,000 ml @ 804.167 / 804.167 125 mls/hr IV .Q8H NU Rx#: [id number] cefTRIAXone SODIUM 2,000 mg In 50 / 50 50 ml @ 100 mls/hr IV NOW STA Rx#:[id number] dilTIAZem HCL 125 mg In 36.083 / 36.083 Dextrose 5% 100 ml @ 5 MG/HR 5 mls/hr IV .Q24H NU Rx#: [id number] Oral 150 / 150 Other: Other Intake Source NPO # Unmeasured Voids 2 Weight 104 kg 104 kg Weight Measurement Method Built in [facility] Built in [facility]
--- NOTE | 2024-12-22 14:54 | Anesthesiology Consultation ---
Date of Service December 22, 2024 Assessment & Plan (1) Encounter for pre-operative examination: Chart Review Chart Review: Acceptable Risk for Surgery and Patient NOT seen in Pre Admission Testing Consults Requested none History Surgery Operation Date: 12/22/24 12:00 Proposed Procedures p Cardioversion Julianna Fowler DO Height/Weight Height: 5 ft 9 in Weight: 104 kg Allergies Allergy/AdvReac Type Severity Reaction Status Date / Time naproxen Allergy Severe Anaphylaxis Verified 09/18/23 07:38 metoprolol AdvReac Mild panic Unverified 12/21/24 14:35 attack Medications Home Medications Medication Instructions Recorded Confirmed Last Taken pantoprazole 40 mg tablet,delayed 40 mg PO QAM 01/13/20 12/21/24 12/21/24 release apixaban 5 mg tablet (Eliquis) 5 mg PO BID #0 tabs 10/13/20 12/21/24 12/21/24 allopurinol 300 mg tablet 300 mg PO QAM 06/03/23 12/21/24 12/21/24 colchicine 0.6 mg tablet 0.6 - 1.2 mg PO DAILY PRN GOUT 06/03/23 12/21/24 Unknown ATTACK famotidine 40 mg tablet 40 mg PO PM 06/03/23 12/21/24 06/02/23 furosemide 20 mg tablet 20 mg PO DAILY 06/03/23 12/21/24 12/21/24 meloxicam 15 mg tablet 15 mg PO DAILY PRN Pain 06/03/23 12/21/24 12/21/24 lisinopril 10 mg tablet 10 mg PO QAM #30 tabs 06/04/23 12/21/24 12/21/24 Active Medications Generic Name Dose Route Start Last Admin Trade Name Freq PRN Reason Stop Dose Admin Acetaminophen 650 mg 12/21/24 16:41 12/22/24 00:51 Acetaminophen 325 Mg Tab PO 01/20/25 16:40 650 mg Q4H PRN Administration Pain or Fever Allopurinol 300 mg 12/22/24 09:00 12/22/24 08:57 Allopurinol 300 Mg Tab PO 01/21/25 08:59 300 mg QAM NU Administration Apixaban 5 mg 12/21/24 21:00 12/22/24 08:57 Apixaban 5 Mg Tablet PO 01/20/25 20:59 5 mg BID NU Administration Diltiazem HCl 30 mg 12/21/24 18:00 12/22/24 13:19 Diltiazem Hcl 30 Mg Tab PO 01/20/25 17:59 30 mg Q6H NU Administration Famotidine 40 mg 12/21/24 20:00 12/21/24 20:22 Famotidine 40 Mg Tablet PO 01/20/25 19:59 40 mg DAILY@2000 NU Administration Furosemide 20 mg 12/22/24 09:00 12/22/24 08:57 Furosemide 20 Mg Tab PO 01/21/25 08:59 20 mg DAILY NU Administration Diltiazem HCl 125 mg/ Dextrose 125 mls @ 5 mls/hr 12/21/24 15:15 12/21/24 22:51 IV 01/20/25 15:14 0 mg/hr .Q24H NU 0 mls/hr Titration Protocol 5 MG/HR Lisinopril 10 mg 12/22/24 09:00 12/22/24 08:57 Lisinopril 10 Mg Tab PO 01/21/25 08:59 10 mg QAM NU Administration Pantoprazole Sodium 40 mg 12/22/24 09:00 12/22/24 08:57 Pantoprazole 40 Mg Tab PO 01/21/25 08:59 40 mg QAM NU Administration Past Medical History Medical History History of DVT (deep vein thrombosis) Bilateral pulmonary embolism completed 6 months Eliquis therapy Left anterior fascicular block RBBB Past Family History Family History Mother COPD (chronic obstructive pulmonary disease) Past Surgical History Surgical History History of cardiac cath 08/2017 - normal coronaries H/O inguinal hernia repair Social History Smoking Status: Never smoker tobacco type: cigarettes Do You Dip or Chew Tobacco: No Hx Alcohol Use: Yes Alcohol type: beer alcohol intake frequency: 0-2 drinks per day Hx Substance Use: No substance use type: does not use Physical Exam Vital Signs Last Vital Signs Temp 97.7 F 12/22/24 11:38 Pulse 87 12/22/24 14:28 Resp 16 12/22/24 11:38 BP 116/73 12/22/24 11:38 Pulse Ox 97 12/22/24 11:38 O2 Del Method Room Air 12/22/24 11:38 Testing Laboratory Results 12/21/24 10:22 12/22/24 07:01 PT 11.3 Seconds (9.0-12.0) 12/21/24 10:22 INR 1.0 (0.9-1.1) 12/21/24 10:22 Urine Color Yellow 12/21/24 12:01 Urine Appearance Clear (Clear) 12/21/24 12:01 Urine pH 6.5 (4.5-7.5) 12/21/24 12:01 Ur Specific [place] 1.011 (1.000-1.030) 12/21/24 12:01 Urine Protein Negative (Negative) 12/21/24 12:01 Urine Glucose (UA) Negative (Negative) 12/21/24 12:01 Urine Ketones Negative (Negative) 12/21/24 12:01 Urine Nitrite Negative (Negative) 12/21/24 12:01 Ur Leukocyte Esterase Negative (Negative) 12/21/24 12:01 Electrocardiogram Date: 12/22/24 Findings: + AFIB @ and + RBBB Echocardiogram Date: 12/22/24 EF: 60-65 Other Findings: + LVH pulm pressure = 41 mmHg
[2024-12-22] MEDS: cefTRIAXone SODIUM 2,000 MG/50 ML BAG IV SCH (14:58)
--- NOTE | 2024-12-22 16:40 | Anesthesiology Progress Note ---
Date of Service December 22, 2024 Anesthesia Post Procedure Vital Signs Vital Signs: Temp Pulse Pulse Resp BP Pulse Ox O2 Del Method 12/22/24 16:24 98.6 F 66 18 121/80 96 Room Air 12/22/24 15:30 98 F 64 18 130/79 97 Room Air 12/22/24 15:11 97.5 F L 101 H 18 124/96 97 Oxymask 12/22/24 14:59 98.4 F 82 18 119/61 96 Room Air 12/22/24 14:28 87 12/22/24 11:38 97.7 F 85 16 116/73 97 Room Air 12/22/24 08:06 59 L 12/22/24 07:24 97.7 F 78 17 120/75 94 Room Air 12/22/24 06:24 57 L 12/22/24 05:45 55 L 12/22/24 03:29 97.3 F L 67 18 125/79 96 Room Air 12/21/24 23:06 65 12/21/24 23:01 97.3 F L 68 18 122/81 95 Room Air 12/21/24 21:40 Room Air 12/21/24 20:11 98.2 F 72 18 121/72 95 Room Air 12/21/24 18:44 98.2 F 106 H 16 147/102 H 98 Room Air 12/21/24 18:40 88 12/21/24 17:24 68 18 127/87 95 Room Air 12/21/24 16:45 73 14 95 O2 Flow Rate 12/22/24 16:24 12/22/24 15:30 12/22/24 15:11 10 12/22/24 14:59 12/22/24 14:28 12/22/24 11:38 12/22/24 08:06 12/22/24 07:24 12/22/24 06:24 12/22/24 05:45 12/22/24 03:29 12/21/24 23:06 12/21/24 23:01 12/21/24 21:40 12/21/24 20:11 12/21/24 18:44 12/21/24 18:40 12/21/24 17:24 12/21/24 16:45 Transfer of Care Handoff Completed per policy Notes Mental Status: alert / awake / arousable and participated in evaluation Patient Amnestic to Procedure: Yes Nausea / Vomiting: adequately controlled Pain: adequately controlled Airway Patency, RR, SpO2: stable & adequate BP & HR: stable & adequate Hydration State: stable & adequate Anesthetic Complications: no major complications apparent and Pt Satisfied with anesthetic care
--- NOTE | 2024-12-22 16:40 | Cardioversion ---
Date of Service December 22, 2024 Electrical Cardioversion Rpt Electrical Cardioversion Report Indication: Atrial flutter with rapid ventricular response. Complications: None. Estimated blood loss: 0 cc. Anesthesia: Conscious sedation provided by the anesthesia service with propofol. Please see separate report. Procedural summary: Patient was brought to the PACU in a fasting state. Defibrillator pads were placed in an anterior and posterior position. Atrial flutter confirmed on monitor. When adequate sedation achieved, the defibrillator was synced to the QRS complex. A single 150 J shock was delivered. Patient successfully converted from atrial flutter to sinus rhythm. No focal neurologic deficits post procedure. Patient tolerated well. Continue diltiazem and apixaban. Conclusion: Successful external direct-current cardioversion from atrial flutter to sinus rhythm with 150 J.Krista Fowler DO, FACC
[2024-12-22] MEDS ORDERED: LIDOCAINE 2% 2 ML VIAL/AMP(20MG/ML) INFIL ONE (16:49)
[2024-12-22] MEDS ORDERED: PROPOFOL IV EMULSION 10 MG/ML 20 ML VIAL IV ONE (16:49)
[2024-12-23 03:16] VITALS: TEMP 97.5
[2024-12-23 07:42] VITALS: BP 128/75; RESP 20; O2SAT 94
[2024-12-23 08:20] LABS: Hematocrit (blood only) 49.7 % (42.0-52.0); Mean Corpuscular Hemoglobin 32.5 pg (25.0-34.0); Mean Corpuscular Hgb Conc 34.2 g/dL (32.0-36.0); Mean Platelet Volume 11.6 fL (9.4-12.4); Platelet Count 178 K/uL (130-400); RDW Coefficient of Variation 13.3 % (11.5-14.5); RDW Standard Deviation 47.1 fL (36.4-46.3); Red Blood Count 5.23 M/uL (4.70-6.10); White Blood Count 7.47 K/ul (4.8-10.8)
[2024-12-23 08:29] LABS: BUN Creatinine Ratio 15.4 (10-20); Calcium 8.8 mg/dl (8.6-10.3); Creatinine Clr Calc Pharmacy 65.2 ml/min; Magnesium 2.2 mg/dl (1.7-2.4); Potassium 4.4 mmol/L (3.5-5.1)
[2024-12-23 10:17] VITALS: PULSE 56
--- NOTE | 2024-12-23 12:53 | Cardiology Progress Note ---
Date of Service December 23, 2024 Assessment & Plan (1) Atrial flutter with rapid ventricular response: (2) Acute Lyme disease: (3) History of pulmonary embolism: (4) Pulmonary HTN: Plan 69-year-old male admitted with recurrent, symptomatic atrial flutter with rapid ventricular response. History of CTI ablation x 2 as noted above. Echocardiogram on admission demonstrating mild pulmonary hypertension. Successful external direct-current cardioversion 12/22/24. Recommendations: * Transition to Cardizem CD 120 mg daily * Continue oral anticoagulation with apixaban * CPAP nightly for treatment of BERTRAM * Cardiology will sign off, please call with additional concerns/questions. Adi Fowler DO, [facility] Admission and Anticipated Discharge Date Admission Date: December 21, 2024 Subjective 69-year-old male seen examined the bedside. External direct-current cardioversion performed 01/12 without complication. Remains sinus rhythm, sinus bradycardia overnight. Feeling well today. Offers no concerns/complaints. Review of Systems Review of Systems: All systems reviewed & are unremarkable except as noted in Subjective Physical Exam Constitutional: well nourished; no acute distress Respiratory: normal respiratory effort; no respiratory distress and no retractions Auscultation: no crackles, no rales, no rhonchi and no wheezes Cardiovascular: Rate/Rhythm: regular rate, regular rhythm and + tachycardic Heart Sounds: normal S1 and normal S2 Vessels: no JVD and no carotid bruit Extremities: no edema Gastrointestinal (Abdomen): Inspection/Auscultation: abdomen normal to inspection; abdomen not distended Percussion/Palpation: abdomen soft; abdomen nontender, no guarding and abdomen not rigid Neurologic: CN's II-XI intact bilaterally and moves all extremities Psychiatric: A+Ox3, euthymic affect Results & Data Vital Signs (Past 12 Hours) Vital Signs Temp Pulse Pulse Resp BP Pulse Ox O2 Del Method 12/23/24 07:41 36.4 C L 57 L 20 128/75 94 Room Air 12/23/24 07:30 56 L 12/23/24 05:43 52 L 18 12/23/24 03:00 36.4 C L 56 L 16 123/78 96 Room Air
--- NOTE | 2024-12-23 14:30 | Discharge Summary ---
Discharge Summary Date of Service December 23, 2024 Principal Dx & Hospital Course #1 = Principal Diagnosis (1) Atrial flutter with rapid ventricular response: (2) Acute Lyme disease: (3) Pulmonary HTN: (4) HTN (hypertension): Plan Mr. Freire 69-year-old male admitted with recurrent, symptomatic atrial flutter with rapid ventricular response, HTN, GERD, gout, pulmonary hypertension, PE/DVT in December 2019 anticoagulated on Eliquis, prior lyme disease admitted for a flutter with RVR. Found to be lyme positive IgG. Patient started on IV CTX. Patient bradycardic on diltazem drip and ultimately underwent cardioversion on 12/22 with succesfful concern to NSR On dischagre, patient was without acute concern and chest pressure resolved #Atrial flutter with RVR #Hx of CTI ablation similar presentation 2022 s/p cardioversion started on diltazem, however, noted to be bradycardic overnight DCCV 12/22 successful Starting on Cardizem 120mg for d/c continue doac #Acute lyme disease s/p 2x IV Rocephin transitioned to doxycycline on discharge #HTN #Severe Pulm HTN continue home medications Notes For Next Care Provider Medication Changes From Visit Diltiazem 120mg daily Doxycycline bid x 12 days Admission HPI Per Admitting Provider Patient is 69-year-old gentleman with known history of paroxysmal atrial flutter status post ablation and second cardioversion and 2022. Presents to the emergency room with decreased stamina and feeling as if his heart is racing. In the emergency room noted to be in atrial fibrillation. Patient initially was given some Cardizem which did not really respond to. He has responded well to Cardizem in the past. He has not responded to beta-blockers in the past. Subsequently cardiology consultation was obtained in the ED to consider cardioversion. I initially consented the patient for cardioversion, however, his Lyme IgM came back positive. With this new information it was decided to treat him for Lyme, continue to control his rate with Cardizem and and see if he does not convert on his own in the next 24 hours or so. Patient was referred to our service to help manage his in hospital stay. Time my evaluation the patient was feeling better at rest. His heart rate was around 105. He states that he believes that he probably went into atrial flutter on Saturday. He states that he works out regularly and during his workout on Saturday he had severe fatigue to the point where he really could hardly finish his workout. During the weekend at rest he did not have symptoms but with any type of activity seem to have easy fatigue. Also experiencing a lot more heartburn and indigestion. He reports he does have a hiatal hernia. His appetite has been fine. No changes in his bowels or bladder. He did report having some joint pains kind of progressing and worsening throughout the weekend but no fever or chills. No cough or cold symptoms. No new swelling in his hands arms legs or feet. Patient does report he has a very high risk for gemma Lyme. He has a forearm. He does a lot of trail clearing, hunting, hiking in the [place] and on his [place] where there is a lot of [place] plants that attract ticks. He is certainly not surprised that he has recurrent Lyme disease. Patient's initial diagnosis of atrial flutter was in the setting of an acute Lyme infection as well. He was treated adequately at that time with doxycycline. He then subsequently underwent an ablation in July 2023. He needed repeat cardioversion in August 2023. He reports that he has been in sinus rhythm since then. Admission Exam Per Admitting Provider Constitutional: Alert, nontoxic, no acute distress HEENT: Mucous membranes moist. Sclera clear Neck: Soft, no adenopathy Lungs: Clear to auscultation, decreased, no wheezes rales or rhonchi CV: S1-S2, tachycardic, irregular, no significant murmur Abdomen: Soft, nontender, nondistended Extremities: No significant edema Musculoskeletal: No significant joint tenderness Neuro: No focal deficits Psych: Cooperative, normal mood Discharge Exam Constitutional WD/WN, vitals as above Respiratory normal respiratory effort, lungs clear to auscultation Cardiovascular RRR, no murmur, no edema Gastrointestinal (Abdomen) normal bowel sounds, soft, nontender, no hepatosplenomegaly Updated Medication List Medication Instructions Recorded Confirmed Type pantoprazole 40 mg tablet,delayed 40 mg PO QAM 01/13/20 12/21/24 History release apixaban 5 mg tablet (Eliquis) 5 mg PO BID #0 tabs 10/13/20 12/21/24 Rx allopurinol 300 mg tablet 300 mg PO QAM 06/03/23 12/21/24 History colchicine 0.6 mg tablet 0.6 - 1.2 mg PO DAILY PRN GOUT 06/03/23 12/21/24 History ATTACK famotidine 40 mg tablet 40 mg PO PM 06/03/23 12/21/24 History furosemide 20 mg tablet 20 mg PO DAILY 06/03/23 12/21/24 History meloxicam 15 mg tablet 15 mg PO DAILY PRN Pain 06/03/23 12/21/24 History lisinopril 10 mg tablet 10 mg PO QAM #30 tabs 06/04/23 12/21/24 Rx diltiazem HCl 120 mg capsule,24 120 mg PO DAILY #30 caps 12/23/24 Rx hr,extended release doxycycline hyclate 100 mg tablet 100 mg PO BID 12 days #24 tabs 12/23/24 Rx Hospital Stay Data Consultations 12/21/24 14:39 Consult Cardiology Stat 12/21/24 15:40 ED Decision to Admit Stat Procedures Performed Operation Date: 12/22/24 12:00 Actual Procedures p Cardioversion Mechanical Technical Service Specialist w/Khoi Fowler DO Pending Results Patient Have Any Pending Studies at Discharge: No Discharge Instructions Given to Patient (Per Discharging Provider) You were admitted for chest pain and noted to be in atrial fibrillation You were also noted to be lyme positive You will take doxycycline 100mg two times a day, your next dose is this evening, for a total of 12 more days You will start diltiazem 120mg daily for rate control for your atrial fibrillation Total Time Total Time Spent Total Time Spent (In Minutes): 40
--- NOTE | 2024-12-23 15:41 | Electrocardiogram Report ---
Test Reason : Blood Pressure : */* mmHG Vent. Rate : 58 BPM Atrial Rate : 200 BPM P-R Int : * ms QRS Dur : 142 ms QT Int : 458 ms P-R-T Axes : 268 -82 -61 degrees QTcB Int : 449 ms Atrial flutter with variable A-V block Right bundle branch block Left anterior fascicular block Bifascicular block Cannot rule out Inferior infarct (masked by fascicular block?) , age undetermined T wave abnormality, consider lateral ischemia Abnormal ECG When compared with ECG of 21-Dec-2024 16:20, (unconfirmed) Atrial flutter has replaced Sinus rhythm Confirmed by Tee Pedersen ([id number]) on 12/23/2024 3:41:22 PM Referred By: REFERRED SELF Confirmed By: Tee Pedersen
--- NOTE | 2024-12-23 15:44 | Electrocardiogram Report ---
Test Reason : Blood Pressure : */* mmHG Vent. Rate : 79 BPM Atrial Rate : 202 BPM P-R Int : * ms QRS Dur : 142 ms QT Int : 408 ms P-R-T Axes : * -78 -30 degrees QTcB Int : 467 ms Atrial flutter with variable A-V block Left axis deviation Right bundle branch block Abnormal ECG When compared with ECG of 21-Dec-2024 16:20, (unconfirmed) No significant change Confirmed by Tee Pedersen ([id number]) on 12/23/2024 3:43:53 PM Referred By: REFERRED SELF Confirmed By: Tee Pedersen
--- NOTE | 2024-12-23 19:01 | Electrocardiogram Report ---
Test Reason : Blood Pressure : */* mmHG Vent. Rate : 108 BPM Atrial Rate : 216 BPM P-R Int : * ms QRS Dur : 118 ms QT Int : 348 ms P-R-T Axes : 87 -87 72 degrees QTcB Int : 466 ms Atrial flutter with 2:1 A-V conduction Pulmonary disease pattern Right bundle branch block Left anterior fascicular block Bifascicular block Abnormal ECG When compared with ECG of 07-Aug-2023 14:06, Atrial flutter has replaced Sinus rhythm Nonspecific T wave abnormality no longer evident in Inferior leads Nonspecific T wave abnormality no longer evident in Anterior leads Confirmed by Tee Pedersen ([id number]) on 12/23/2024 7:00:57 PM Referred By: REFERRED SELF Confirmed By: Tee Pedersen
--- NOTE | 2024-12-23 20:03 | Electrocardiogram Report ---
Test Reason : Blood Pressure : */* mmHG Vent. Rate : 84 BPM Atrial Rate : 100 BPM P-R Int : 200 ms QRS Dur : 124 ms QT Int : 474 ms P-R-T Axes : * -83 -6 degrees QTcB Int : 560 ms Atrial flutter Right bundle branch block Left anterior fascicular block Bifascicular block Abnormal ECG When compared with ECG of 21-Dec-2024 10:20, (unconfirmed) No significant change Confirmed by Tee Pedersen ([id number]) on 12/23/2024 8:02:35 PM Referred By: REFERRED SELF Confirmed By: Tee Pedersen
--- NOTE | 2024-12-24 09:34 | Electrocardiogram Report ---
Test Reason : Blood Pressure : */* mmHG Vent. Rate : 67 BPM Atrial Rate : 67 BPM P-R Int : 178 ms QRS Dur : 128 ms QT Int : 438 ms P-R-T Axes : 62 -77 13 degrees QTcB Int : 462 ms Sinus rhythm with Premature atrial complexes Right bundle branch block Left anterior fascicular block Abnormal ECG When compared with ECG of 22-Dec-2024 08:21, Sinus rhythm has replaced Atrial flutter Confirmed by Godwin Infante ([id number]) on 12/24/2024 9:34:12 AM Referred By: REFERRED SELF Confirmed By: Godwin Infante
== END 2024-12-23 10:55 | disposition home or self-care (01) | DRG 868 ==
LOC: ED 09:56 → EDINP 15:46 → SUATTDRO 15:46 → 2S 16:42